=== PATIENT | female | born 1990 | race Caucasian/White ===

== ENCOUNTER 2018-08-04 13:32 | Inpatient (IN) | payer OTHER ==
[~2018-08-04] VITALS: Ht 175.3 cm; Wt 117.5 kg
--- NOTE | ~2018-08-04 | OR ---
[address] [address] [place] DATE OF OPERATION: 08/12/2018 SURGEON: Jorge Benites DO PREOPERATIVE DIAGNOSES: 1. Term . 2. History of prior . 3. Obesity. 4. Rh negative status post RhoGAM. POSTOPERATIVE DIAGNOSES: 1. Term . 2. History of prior . 3. Obesity. 4. Rh negative status post RhoGAM. PROCEDURE PERFORMED: Repeat low transverse delivery. ASSISTANTS: Darren York MD ANESTHESIA: Spinal. ESTIMATED BLOOD LOSS: 500 mL. COMPLICATIONS: None. FINDINGS: Viable male born in the SHAUNA position with no nuchal cord noted. Normal uterus, tubes, and ovaries. No intraabdominal or pelvic adhesions. Hemostasis at the end of the procedure. INDICATIONS: Ms. Obregon is a pleasant 28-year-old G2, P1, white female at 39 and 4 weeks gestation, who presented to Labor and Delivery for scheduled repeat low transverse delivery. The is complicated by history of prior , Rh negative, and obesity. PATIENT NAME: DEON OBREGON OPERATIVE REPORT DATE OF : 86 REPORT #: [id number] PHYSICIAN: JORGE BENITES DO PCP: JORGE BENITES DO REPORT IS CONFIDENTIAL AND NOT TO BE RELEASED WITHOUT AUTHORIZATION [address] [address] [place] She was scheduled for repeat low transverse delivery. Risks, benefits, and alternatives were discussed in detail with the patient. She does have a Keflex allergy and Pharmacy recommended clindamycin 900 mg and aztreonam 2 g IV for preoperative antibiotics. TECHNIQUE: The patient was taken to the operating room. A time-out was performed to confirm correct patient and correct procedure. Spinal anesthesia was adequately established. The patient was then prepped and draped in the supine position with a bump under her right hip. ICPs were on running and a Knox catheter was inserted. Clindamycin and aztreonam were given per [facility] protocol and no preoperative heparin was indicated. Once spinal anesthetic was tested and found to be adequate, a Pfannenstiel skin incision was made through the prior scar and carried down to the fascia. The fascia was nicked in the midline with a surgical scalpel and extended bilaterally using Churchill scissors. A small amount of oozing was noted from the fascial edge on the left side and this was made hemostatic with Bovie electrocautery. The fascia was grasped with Dora's, elevated and the underlying rectus dissected off bluntly and sharply. The peritoneum was entered sharply and peritoneal incision was extended cephalad caudad using blunt and sharp dissection. The lower uterine segment was identified and appears normal. No intraabdominal or pelvic adhesions noted. Normal tubes and ovaries were noted later in the procedure. An Bolivar retractor was placed and the lower uterine segment incised using a surgical scalpel in a low-transverse method. Some brisk bleeding was noted and the lower segment edges were grasped with Allis. It is elevated and hysterotomy continued with this scalpel. Once the myometrium was transected, the amnion was bulging and clear fluid was noted. This was ruptured using pickups and clear fluid again noted. Surgeon's hand was placed into the uterine cavity. The head elevated in the abdomen, delivered with the assistance of fundal pressure. No nuchal cord was identified and the delivered easily without difficulty. The was vigorous and cried upon delivery. The cord was doubly clamped and cut. The handed to the waiting pediatric team. Cord blood and portion of the cord were obtained per protocol. The placenta was then expressed intact with a centrally inserted three-vessel cord. Scant bleeding was noted and Pitocin was given to enhance uterine involution. The uterus was cleared of any remaining products of conception or clot and hysterotomy was then repaired using 0 Vicryl in a running locked manner. A 2nd vertical imbricating suture of 0 Vicryl was then placed with good imbrication noted. A small amount of oozing was noted and this was made hemostatic with one [id number]-br-whijq of 0 Vicryl. The Bolivar retractor was removed and the pelvis irrigated and found to be hemostatic. A cell sheet was applied to the lower uterine segment and the peritoneum was then reapproximated using a 2-0 Vicryl in a running nonlocked stitch after examining normal adnexal structures. The rectus was then reapproximated using 0 Vicryl in two interrupted sutures of 0 Vicryl and rectus was then examined and found to be hemostatic. A cell powder was applied to the rectus sheath. Fascia was then reapproximated using 0 PATIENT NAME: DEON OBREGON OPERATIVE REPORT DATE OF : 86 REPORT #: [id number] PHYSICIAN: JORGE BENITES DO PCP: JORGE BENITES DO REPORT IS CONFIDENTIAL AND NOT TO BE RELEASED WITHOUT AUTHORIZATION [address] [address] [place] Vicryl in a running nonlocked manner. The subcu was reapproximated using 2-0 Vicryl in a running nonlocked manner and skin was reapproximated using surgical jenaro after ensuring subcu was hemostatic and was irrigated with fluid. The uterus was then Crede'd for scant amount of blood and the patient was taken to PACU in good and stable condition. Sponge, needle, instrument count was correct x2 at the end of the procedure. Dr. York, present and participated in all portions of the procedure. Jorge Benites DO JDW/MODL /[id number] Copies: ~ PATIENT NAME: DEON OBREGON OPERATIVE REPORT DATE OF : 86 REPORT #: [id number] PHYSICIAN: JORGE BENITES DO PCP: JORGE BENITES DO REPORT IS CONFIDENTIAL AND NOT TO BE RELEASED WITHOUT AUTHORIZATION
[~2018-08-04 13:32] MED LIST: ALLERGY RELIE15.8 ML NAS; IBUPROFEN800 MG PO; PERCOCET 5-3251 EACH PO; PROMETHAZINE HC25 M1 PO
--- NOTE | 2018-08-12 08:43 | NUR ---
08/12/18 0843 Hiwot Méndez 0820 PT ARRIVED TO PACU ON RA, RESP EVEN AND UNLABORED. PT AWAKE AND TALKING. PT DENIES PAIN AND NAUSEA. SPINAL LEVEL T-6, PT DENIES SOB AND DIZZNESS.
--- NOTE | 2018-08-13 08:01 | PR ---
[facility] [address] [facility] [place], [place] [address] Signed PP Progress Notes Datetime Report Generated by CPN: 08/13/2018 08:01 SUBJECTIVE: [id number] Pain: Within normal limits Nausea/Vomiting: Denies Flatus: Yes Vital Signs: [id number] Vital Signs: Reviewed; Within Normal Limits EXAM: [id number] Cardiovascular: Normal Abdomen/Uterus: Normal Lochia: Normal Vulva/Perineum: Not Done Breasts: Not Done CVA Tenderness: Normal Extremities: Normal Incision: Normal Progress: Normal Exam Comments: Fundus firm U-2 nontender. Incision healing well. IMPRESSION/PLAN/PROCEDURES: [id number] Impression: Normal progression Plan: Continue present management Progress Notes: Pt seen and examined. Doing well. Ambulating and tolerating full diet. Knox cath in place. Pain and lochia minimal. well. No fevers/chills/lightheadedness or dizziness. Some decreased urine output yesterday evening, but improved. No tachycardia. Hgb 8.8 Baby Rh negative. Signing Physician: Jorge Benites DO Copies: ~ *Electronically Signed* 08/13/18 0801 JORGE BENITES DO PATIENT NAME: DEON ESCOTO PROGRESS NOTE DATE OF : 86 PHYSICIAN: JORGE BENITES DO RPT #: [id number] REPORT IS CONFIDENTIAL AND NOT TO BE RELEASED WITHOUT AUTHORIZATION
--- NOTE | 2018-08-14 10:05 | PR ---
[facility] [address] [facility] [place] [address] Signed PP Progress Notes Datetime Report Generated by CPN: 08/14/2018 10:05 SUBJECTIVE: [id number] Pain: Within normal limits Nausea/Vomiting: Denies Flatus: Yes Vital Signs: [id number] Vital Signs: Reviewed; Within Normal Limits EXAM: [id number] Cardiovascular: Normal Respiratory: Normal Abdomen/Uterus: Normal Lochia: Normal Vulva/Perineum: Not Done Breasts: Not Done CVA Tenderness: Normal Extremities: Normal Incision: Normal Progress: Normal Exam Comments: Fundus firm U-2 nontender. Incision healing well IMPRESSION/PLAN/PROCEDURES: [id number] Impression: Normal progression Plan: Discharge Progress Notes: Pt seen and examined. Doing well. Ambulating voiding and tolerating full diet. Pain and lochia minimal. /pumping with good milk production. No fevers/chills/lightheadedness or dizziness. Good urine output. No tachycardia. Hgb 8.8 Baby Rh negative. Signing Physician: Jorge Benites DO Copies: ~ *Electronically Signed* 08/14/18 1005 JORGE BENITES DO PATIENT NAME: DEON ESCOTO PROGRESS NOTE DATE OF : 86 PHYSICIAN: JORGE BENITES DO RPT #: [id number] REPORT IS CONFIDENTIAL AND NOT TO BE RELEASED WITHOUT AUTHORIZATION
== END 2018-08-14 10:35 | disposition home or self-care (01) | DRG 788 ==
LOC: FBC 08-12 04:38
PROVIDERS: ADMIT Obstetrics & Gynecology
PROC: 10D00Z1 Extraction of Products of Conception, Low, Open Approach (ICD-10-PCS; principal; 2018-08-12 06:45)
DX: O34.211 Maternal care for low transverse scar from previous cesarean delivery (principal); Z37.0 Single live birth; O75.82 Onset (spontaneous) of labor after 37 completed weeks of gestation but before 39 completed weeks gestation, with delivery by (planned) cesarean section; Z3A.39 39 weeks gestation of pregnancy; O99.214 Obesity complicating childbirth; Z67.11 Type A blood, Rh negative
CPT/HCPCS: 01961; 36415; 85027; C1763; J1100; J1885; J2274; J2300; J2370; J2405; J2590; J3010; J3490; J7060; J7120

== ENCOUNTER 2019-08-26 22:24 | Emergency (ER) | payer OTHER ==
[~2019-08-26] VITALS: Ht 175.3 cm; Wt 97.1 kg
--- OUTSIDE RECORDS SUMMARY | ~2019-08-26 | XMS | Encounter Summary ---
Demographics + + + | Address | [address] | | | [place] [address] | + + + | Home Phone | | + + + | Preferred Language | Unknown | + + + | Marital Status | | + + + | Pentecostalism Affiliation | Unknown | + + + | Race | Unknown | + + + | Ethnic Group | Unknown | + + + Author + + + | Author | [facility] | | | and [place] | + + + | Organization | [facility] | | | and [place] | [...] Team Providers + +------+ + | Care Oil Gauger Name | Role | Phone | + +------+ + | Steff Hightower MD | PCP | | + +------+ + Reason for Visit + + + | Reason | Comments | + + + | Establish Care | | + + + Encounter Details +--------+---------+ + + + | Date | Type | Department | Care Team | Description | +--------+---------+ + + + | 09/12/ | Office | [facility] | Steff Hightower MD | Encounter to | | 2019 | Visit | [facility] | [address] | establish care | | | | [address] | [place] | (Primary Dx); Mild | | | | [place] | [address] | intermittent asthma | | | | [address] | | without | | | | [phone] | | complication; | | | | | | Recurrent acute | | | | | | serous otitis media | | | | | | of both ears; | | | | | | Seasonal allergic | | | | | | rhinitis due to | | | | | | pollen | +--------+---------+ + + + Social History + +-------+ [...] + + documented as of this encounter Last Filed Vital Signs + + + + + | Vital Sign | Reading | Time Taken | Comments | + + + + + | Blood Pressure | 110/78 | 06/23/2019 9:36 AM | | | | | PDT | | + + + + + | Pulse | 91 | 06/23/2019 9:36 AM | | | | | PDT | | + + + + + | Temperature | 37.4 C (99.3 F) | 06/23/2019 9:36 AM | | | | | PDT | | + + + + + | Respiratory Rate | 16 | 06/23/2019 9:36 AM | | | | | PDT | | + + + + + | Oxygen Saturation | 97% | 06/23/2019 9:36 AM | | | | | PDT | | + + + + + | Inhaled Oxygen | - | - | | | Concentration | | | | + + + + + | Weight | 102 kg (224 lb 13.9 | 06/23/2019 9:36 AM | | | | oz) | PDT | | + + + + + | Height | 180.3 cm (5' 11") | 06/23/2019 9:36 AM | | | | | PDT | | + + + + + | Body Mass Index | 31.36 | 06/23/2019 9:36 AM | | | | | PDT | | + + + + + documented in this encounter Patient Instructions Patient Instructions Mee Blanc, WASHING MACHINE INSTALLER - 06/23/2019 9:15 AM PDTFormatting of this no te might be different from the original. Return in about 1 year (around 06/23/2020), or if symptoms worsen or fail to improve, for An nual Exam.If you have any questions, please call us [phone]. Appointment reminders by text: Do you have an upcoming appointment? Receive a test reminder! Text the word [employer] to [phone] to opt. in and ask our front sight attacher for more information laron bowman your visit today. *Standard message and data rates may apply Prescription Refill Notice: All prescription refill requests should be made through your pharmacy. Please allow 24-48 business hours to process refill requests. No early refills will be given for controlled substances. Cancellation/Re-Scheduling/Late Arrivals: Please arrive 15 minutes prior to your scheduled appointment time. Arrivals beyond 10-15 mi nutes late will be considered a "no-show" and you may be asked to reschedule. Please notify this office 24 hours prior to cancellation or re-scheduling of your appointme nt. Allergic Rhinitis Allergic rhinitis is an allergic reaction that affects the nose, and often the eyes. It s often known asnasal allergies. Nasal allergies are often due to things in the environment that are breathed in. Depending what you are sensitive to, nasal allergies may occur only d uring certain seasons. Or they may occur year round. Common indoor allergens include house d ust mites, mold, cockroaches, and pet dander. Outdoor allergens include pollen from trees, g rasses, and weeds. Symptoms include a drippy, stuffy, and itchy nose. They also include sneezing and red and i tchy eyes. You may feel tired more often. Severe allergies may also affect your breathing an d trigger a condition called asthma. Tests can be done to see what allergens are affecting you. You may be referred to an allerg y specialist for testing and further evaluation. Home care Your healthcare provider may prescribe medicines to help relieve allergy symptoms. These ma y include oral medicines, nasal sprays, or eye drops. Ask your provider for advice on how to avoid substances that you are allergic to.Below ar e a few tips for each type of allergen. Pet dander: Do not have pets with fur and feathers. If you can't avoid having a pet, keep it out of your bedroom and off upholstered furnitu re. Pollen: When pollen counts are high, keep windows of your car and home closed. If possible, use an air conditioner instead. Wear a filter mask when mowing or doing yard work. House dust mites: Wash bedding every week in warm water and detergent and dry on a hot setting. Cover the mattress, box spring, and pillows with allergy covers. If possible, sleep in a room with no carpet, curtains, or upholstered furniture. Cockroaches: Store food in sealed containers. Remove garbage from the home promptly. Fix water leaks Mold: Keep humidity low by using a dehumidifier or air conditioner. Keep the dehumidifier and air conditioner clean and free of mold. Clean moldy areas with bleach and water. In general: Vacuum once or twice a week. If possible, use a vacuum with a high-efficiency particulat e air (HEPA) filter. Do not smoke. Avoid cigarette smoke. Cigarette smoke is an irritant that can make sympto ms worse. Follow-up care Follow up as advised by the healthcare provider or our staff. If you were referred to an al lergy specialist, make this appointment promptly. When to seek medical advice Call your healthcare provider right away if the following occur: Coughing or wheezing Fever of 100.4F (38C) or higher, or as directed by your healthcare provider Raised red bumps (hives) Continuing symptoms, new symptoms, or worsening symptoms Call 911if you have: Trouble breathing Severe swelling of the face or severe itching of the eyes or mouth Date Last Reviewed: 12/10/201619996586-8299 [employer]. [address] [place] [address]. All righ ts reserved. This information is not intended as a substitute for professional medical care. Always follow your healthcare professional's instructions. Asthma Trigger Checklist Allergens, irritants, and other things may trigger your asthma. Check the box next to each of your triggers. After each trigger is a list of ways to avoid it. Dust mites. Dust mites live in mattresses, bedding, carpets, curtains, and indoor dust. To kill dust mites, wash bedding in hot water (130F) each week. Cover mattress and pillows with special nfpk-mujk-zxtkuuldtf. Don t use upholstered furniturelike sofas or chairsin the bedroom. Use allergy-proof filters for air conditioners and furnaces. Replace or clean them as in structed. If you can, replace carpeting with wood or tile tres, especially in the bedroom. Animals. Animals with fur or feathers shed dander (allergens). It s best to choose a pet that doesn t have fur or feathers, such as a fish or a rep tile. If you have pets, keep them off of your bed and out of your bedroom. Wash your hands and clothes after handling pets. Mold. Mold grows in damp places, such as bathrooms, basements, and closets. Ask someone to clean damp areas in your home every week. Or try wearing a face mask whil e you clean. Run an exhaust fan while bathing. Or leave a window open in the bathroom. Repair water leaks in or around your home. Have someone else cut grass or rake leaves, if possible. Don t use vaporizersorhumidifiers. They encourage mold growth. Pollen. Pollen from trees, grasses, and weeds is a common allergen. (Flower pollens are generally not a problem). Try to learn what types of pollen affect you most. Pollen levels vary depending on the p lant, the season, and the time of day. If possible, use air conditioning instead of opening the windows in your home or car. Have someone else do yard work, if possible. Cockroaches. Roaches are found in many homes and produce allergens. Keep your kitchen clean and dry. A leaky faucet or drain can attract roaches. Remove garbage from your home daily. Store food in tightly sealed containers. Wash dishes as soonas they are used. Use bait stations or traps to control roaches. Avoid using chemical sprays. Smoke. Smoke may be from cigarettes, cigars, pipes, incense or candles, barbecues or gri lls, and fireplaces. Don t smoke. And don t let people smoke in your home or car. When you travel, ask for nonsmoking rental cars and hotel rooms. Avoid fireplaces and wood stoves. If you can t, sit away from them. Make sure the smok e is directed outside. Don t burn incenseor use candles. Move away from smoky outdoor cooking grills. Smog. Smog is from car exhaust and other pollution. Read or listen to local air-quality reports. These let you know when air quality is poor . Stay indoors as much as you can on smoggy days. If possible, use air conditioning instea d of opening the windows. In your car, set air conditioning to recirculate air, so less pollution gets in. Strong odors. These include air fresheners, deodorizers, and cleaning products; perfume, deodorant, and other beauty products; incense and candles; and insect sprays and other spra ys. Use scent-free products like deodorantorbodylotion. Avoid usingcleaning products withbleach and ammonia.Make your own cleaning solutio nwith white vinegar, baking soda,or mild dish soap. Use exhaust fans while cooking.Or open a window, if possible. Avoid perfumes, air fresheners, potpourri, and other scented products. Other irritants. These include dust, aerosol sprays, and powders. Wear a face mask while doing tasks like sanding, dusting, sweeping, and yard work.Open doors and windows if working indoors. Use pump spray bottles instead of aerosols. Pour liquid audiovisual technician onto a rag or cloth instead of spraying them. Weather. Weatherconditionscan triggersymptomsormake them worse. Watch for very high or low temperatures, very humid conditions, or a lot of wind, as the se conditions can make symptoms worse. Limit outdoor activity during the type of weather that affects you. Weara scarf over your mouth and nose in cold weather. Colds, flu, and sinus infections. Upper respiratory infections can trigger asthma. Wash your hands often with soap and warm water orusea hand administrative specialist containing alco hol. Get a yearly flu shot.And ask if you should get a pneumonia vaccine. Take care of your general health. Get plenty of sleep. And eat a variety of healthy food s. Food additives. Food additives can trigger asthma flare-ups in some people. Check food labels for sulfites or other similar ingredients. These are often found in fo ods such as wine, beer, and dried fruits. Avoid foods that contain these additives. Medicine. Aspirin, NSAIDS like ibuprofen and naproxen,and heart medicines like beta-bl ockers may be triggers. Tell your health care provider if youthink certain medicines trigger symptoms. Be sure to read the labels on zyyn-myb-plshxzh medicines.They may have ingredients hay t cause symptoms for you. , Emotions. Laughing, crying, or feeling excited are triggers for some people. To help you stay calm: Try breathing in slowly through your nose for a count of 2 second s. Close your lips and breathe out for 4 seconds. Repeat. Try to focus on a soothing image in your mind. This will help relax you and calm your br eathing. Remember to take your daily controller medicines. When you re upset or under stress, i t s easy to forget. Exercise. For some people, exercise can triggersymptoms.Don t letthiskeep you from being active. If you have not been exercising regularly, start slow and work up gradually. Take all of your medicines as prescribed. If you use quick-reliefmedicine, make sure you have itwith you when you exercise. Stopif youhave any symptoms.Make sure you talk with your provider about these symp toms. Date Last Reviewed: 10/12/201619994355-[address] [employer] [place] [id number]. All righ ts reserved. This information is not intended as a substitute for professional medical care. Always follow your healthcare professional's instructions. Controlling Asthma Triggers: Animals Keep pets off beds and upholstered furniture. Having allergies to animals can trigger asthma flare-ups. Yourhealthcare provider may grant t you for allergies to several types of animals, both pets and pests. Theallergies areca used byan animal s dry skin flakes (dander), feathers, droppings, urine, and saliva. If you are allergic to pets,you can dosome things to lessen your symptoms. Keeping your home clean Dust often with a damp cloth to lessen pet dander. Keep your pets off of your bed and out of your bedroom. You spend a big part of each day there sleeping. But even if you keep your pet out of the bedroom, pet allergen will be ther e. When you sit on the couch in the living room and then go into the bedroom, youbring the allergen with you. Keep your pets off of upholstered furniture, like sofas and chairs, and out of rooms wit h carpeting. Use a special bag for your vacuum or use a vacuum designed to lessen pet dander and hair on carpeting. Think about buying a home air grain cleaner and transfer operator with a HEPA (high-efficiency particulate air) filt er. They help to remove allergens in the air. Keep your kitchen clean and free of food crumbs. Don't leave food crumbs elsewhere in th e house. These can attract mice and other pests. These pests can trigger asthma. Away from home You may have to stay out of homes with pets. Even if the pets are outdoors during a visi t, the dander remains in the house. When spending the night somewhere, ask to sleep in a room where pets aren't allowed. Choosing a pet If you are considering a new pet, this is what you should know: For people with allergies to dogs and cats, it is not the length of the fur or coat or t he amount of shedding that matters. All dogs and cats have dander. No dog or cat is complete ly allergen-free. Fish and reptiles don't cause allergies. Date Last Reviewed: 07/12/201619998814-8665 [employer]. [address] [place] [address], [place] [address]. All righ ts reserved. This information is not intended as a substitute for professional medical care. Always follow your healthcare professional's instructions. documented in this encounter Progress Notes Steff Hightower MD - 06/23/2019 9:15 AM PDT Subjective: Patient ID: Mariella Obregon is a 29 y.o. female. Chief Complaint Patient presents with Establish Care HPI Patient is a 29 y.o. Caucasion female. She is a previous patient of Olivia diaz nd has decided to change physicians due to provider no longer practicing. She is here with her Fernando Waddell (4 y.o) and 10 m.o. Baby boy. 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 She reports about 3 weeks ago she received a couch from her in-law's. She had forgot that h er in-law's have cats and she has an allergy to cats. So she did get rid of the couch but sh valery is still having swelling in her lymph nodes and she would like a referral to see someone. C/O pressure in her ears, swollen throat "getting shots" she has already seen 3 or 4 physic ians for these issues, received Cortisporin orthotic for "swimmer's ear's ", she is been see n in [facility] in [place] for sinus infection since and had doxycycline and currently on a Medrol Dosepak after a 3 days of prednisone, swelling lymph nodes throat and ears are swol racheal and feel achy and pressure, had a normal CAT scan of the sinuses, negative strep negativ e mono and negative sinuses on the CAT scan. Little frustrated that she can get rid of her pressure, earache and swelling in her throat and lymph nodes. Has a history of asthma since childhood does not smoke and has significant allergies. Symptoms have worsened and became strong about a month ago. Her last physical exam was 09/2018. Last mammogram - Has never had one before. Last Pap smear was 09/2018 and she never had history of abnormal results. Patient's last menstrual period was 06/09/2019 (exact date). and are regular. No obstetric history on file.. Birthcontrol: yes Type pill Hysterectomy: no Colonoscopy - has not had one done. Mother had colon cancer diagnosed at age 53. Her last labs were 09/2018. She is currently being treated for She is on a regular diet. She exercises by running after her children. Today her main concern is that she would like to establish care and as listed above under H PI. She is non-fasting today. PHQ9 SCORE Office Visit from 06/23/2019 in [facility] PHQ-9 Total Score (Patient Health Questionnaire) 4 Past Medical History: Diagnosis Date Acute non-recurrent maxillary sinusitis Asthma PCOS (polycystic ovarian syndrome) Seasonal allergic rhinitis due to other allergic trigger Past Surgical History: Procedure Laterality Date CEASAREAN SECTION, MULTIPLES has had 2 done DENTAL SURGERY Molars removed REFRACTIVE SURGERY Bilateral 2010 SKIN EXCISION 4 different procedures to remove birthmark History reviewed. No pertinent family history. Social History Socioeconomic History Marital status: Spouse name: Not on file Number of children: Not on file Years of education: Not on file Highest education level: Not on file Tobacco Use Smoking status: Never Smoker Smokeless tobacco: Never Used Substance and Sexual Activity Alcohol use: Yes Frequency: 2-4 times a month Drinks per session: 1 or 2 Binge frequency: Weekly Drug use: Never Allergies Allergen Reactions Keflex (Cephalexin) Anaphylaxis Intolerance No active intolerances/contraindications Current Outpatient Medications Medication Sig Dispense Refill cetirizine-psuedoePHEDrine (ZYRTEC-D) 5-120 MG per tablet Take 1 tablet by mouth Daily. 30 tablet 0 desogestrel-ethinyl estradiol (AZURETTE) 0.15-0.02/0.01 MG (01/03) per tablet Take 1 tab let by mouth Daily. diphenhydrAMINE (BENADRYL) 25 mg tablet Take 25 mg by mouth every 6 hours as needed for Itching. fluticasone (FLONASE) 50 mcg/nasal spray 1 spray by Nasal route Daily. methylPREDNISolone (MEDROL) 4 mg tablet Take 4 mg by mouth Daily. montelukast (SINGULAIR) 10 mg tablet Take 1 tablet by mouth Daily. 90 tablet 3 oylybigv-vzmohwmmm-xchhhjjoijryc (MAXITROL) 3.5-88152-4.1 ophthalmic ointment 4 times d aily. No current facility-administered medications for this visit. Review of Systems Constitutional: Negative for fever and malaise/fatigue. HENT: Positive for congestion. Negative for ear discharge, ear pain, sinus pain, sore throa t and tinnitus. Swelling of the lymph nodes in the neck Eyes: Negative for blurred vision and pain. Respiratory: Negative for cough and shortness of breath. Cardiovascular: Negative for chest pain, palpitations and leg swelling. Gastrointestinal: Negative for abdominal pain, constipation, diarrhea, heartburn, nausea an d vomiting. Genitourinary: Negative for dysuria. Musculoskeletal: Negative for back pain, joint pain and myalgias. Skin: Negative for rash. Neurological: Negative for dizziness, tingling, weakness and headaches. Psychiatric/Behavioral: Negative for depression. The patient is not nervous/anxious and palafox s not have insomnia. Objective: BP 110/78 | Pulse 91 | Temp 37.4 C (99.3 F) (Temporal) | Resp 16 | Ht 1.803 m (5' 1 1") | Wt 102 kg (224 lb 13.9 oz) | LMP 06/09/2019 (Exact Date) | SpO2 97% | Breastfeedin g? No | BMI 31.36 kg/m Physical Exam General Appearance: Alert, cooperative, no distress, appears stated age Head: Normocephalic, without obvious abnormality, atraumatic Eyes: PERRL, conjunctiva/corneas clear, EOM's intact EARS: TM's are bulging, with decreased light reflex and not erythematous NOSE: congested, stuffy THROAT: erythematous, no exudates, Tonsils not enlarged SINUSES: WNL Neck: Supple, symmetrical, no adenopathy Lungs: No accessory muscle use, breath sounds are clear to auscultation bilaterally, no w heezes, crackles or rhonchi Chest Wall: No tenderness or deformity Heart: Regular rate and rhythm, S1, S2 normal, no murmur, rub or gallop Abdomen: Soft, non-tender Extremities: Extremities normal, atraumatic, no cyanosis, clubbing, or edema Pulses: Radial pulses 2+ and symmetric Skin: Warm and dry Lymph nodes: Cervical and supraclavicular nodes normal Neurologic: Gait normal Assessment/Plan: 1. Encounter to establish care (Primary) Overview: Health Maintenance -Colonoscopy: Not at screening age. -Mammogram: Not at screening age. -Dexa Scan: Not at screening age. -Pap Smear: done 09/2018 in [place]. Will request record. Assessment & Plan: Healthy habits discussed, including regular breast exams, proper calcium intake, exercise. Reviewed need for age appropriate screening examinations and vaccines. Ordered if appropria te. Follow-up one year for next exam. 2. Mild intermittent asthma without complication - montelukast (SINGULAIR) 10 mg tablet; Take 1 tablet by mouth Daily. Dispense: 90 tab let; Refill: 3 3. Recurrent acute serous otitis media of both ears Assessment & Plan: She can stop taking the Benadryl, and zyrtec and continue to use the Flonase and start the Zyrtec-D as needed and start Singular nightly. Advised her to continue this for a couple wee ks and if this does not improve then we can consider an allergy consultation. Discussed eustachian tube dysfunction and treatment may take a few weeks up to a few months . to avoid dust mites, wash sheets once a week and expose them to the sun. Avoid exposure to dust, vacuum the carpets at least twice a week and dust furniture with a damp cloth. Avoid pet, dust mold, pollen and grass exposures. Orders: - montelukast (SINGULAIR) 10 mg tablet; Take 1 tablet by mouth Daily. Dispense: 90 tab let; Refill: 3 - cetirizine-psuedoePHEDrine (ZYRTEC-D) 5-120 MG per tablet; Take 1 tablet by mouth Gertrudis ly. Dispense: 30 tablet; Refill: 0 4. Seasonal allergic rhinitis due to pollen The patient was satisfied with the care received and voiced understanding of the issues dis cussed and the plan. Return in about 1 year (around 06/23/2020), or if symptoms worsen or fail to improve, for An nual Exam. Electronically signed by Steff Hightower MD Portions of this report were transcribed using [employer] voice recognition soft miranda. Although effort was made in correcting the errors; grammatical and sound alike errors may still be present. documented in this enc ounter Plan of Treatment Not on filedocumented as of this encounter Procedures + +--------+ + + + | Procedure Name | Priori | Date/Time | Associated Diagnosis | Comments | | | ty | | | | + +--------+ + + + | LABS - EXTERNAL SCAN | | 01/12/2018 | | Results for this | | | | 12:00 AM | | procedure are in the | | | | PDT | | results section. | + +--------+ + + + documented in this encounter Results LABS - EXTERNAL SCAN (01/12/2018 12:00 AM PDT) + + + | Narrative | Performed At | + + + | Ordered by an | | | unspecified provider. | | + + + documented in this encounter Visit Diagnoses + + | Diagnosis | + + | Encounter to establish care - Primary Reserved for inherently not codable concepts | | WITHOUT codable children | + + | Mild intermittent asthma without complication Unspecified asthma | + + | Recurrent acute serous otitis media of both ears Acute serous otitis media | + + | Seasonal allergic rhinitis due to pollen | + + documented in this encounter
--- OUTSIDE RECORDS SUMMARY | ~2019-08-26 | XMS | Encounter Summary ---
Demographics + + + | Address | [address] | | | [place] [address] | + + + | Home Phone | | + + + | Preferred Language | Unknown | + + + | Marital Status | | + + + | Evangelical Affiliation | Unknown | + + + | Race | Unknown | + + + | Ethnic Group | Unknown | + + + Author + + + | Author | [facility] | | | and [place] | + + + | Organization | [facility] | | | and [place] | [...] Team Providers + +------+ + | Care Clinical Documentation Specialist Name | Role | Phone | + [...] Question | | 2019 | | [facility] [place] | [address] | | | | | [address] | [place] | | | | | [place] | [address] | | | | | [address] | | | | | | [phone] | | | +--------+ + + + [...]
--- OUTSIDE RECORDS SUMMARY | ~2019-08-26 | XMS | Encounter Summary ---
Demographics + + + | Address | [address] | | | [place] [address] | + + + | Home Phone | | + + + | Preferred Language | Unknown | + + + | Marital Status | | + + + | Methodist Affiliation | Unknown | + + + | Race | Unknown | + + + | Ethnic Group | Unknown | + + + Author + + + | Author | [facility] | | | and [place] | + + + | Organization | [facility] | | | and [place] [...] Team Providers + +------+ + | Care Economic Forecaster Name | Role | Phone | + [...] | | | | [place] | [place] [address] | | | | | [address] | [phone] | | | | | [phone] | | | +--------+ + + + [...]
--- OUTSIDE RECORDS SUMMARY | ~2019-08-26 | XMS | Encounter Summary ---
Demographics + + + | Address | [address] | | | [place] [address] | + + + | Home Phone | | + + + | Preferred Language | Unknown | + + + | Marital Status | | + + + | Mandaen Affiliation | Unknown | + + + | Race | Unknown | + + + | Ethnic Group | Unknown | + + + Author + + + | Author | [facility] | | | and [place] | + + + | Organization | [facility] | | | and [place] [...] Team Providers + +------+ + | Care Gasoline Finisher Name | Role | Phone | + +------+ + | Steff Higthower MD | PCP | | + +------+ + Reason for Visit + + + | Reason | Comments | + + + | Mass | at mid sternum that she noticed 1 year. it swells off and on but | | | more in the last month. | + + + | Depression | after second child, 1 year post | + + + | Anxiety | | + + + Encounter Details +--------+---------+ + + + | Date | Type | Department | Care Team | Description | +--------+---------+ + + + | 08/02/ | Office | [facility] | Adilia Cash, | Generalized anxiety | | 2019 | Visit | [facility] [place] | TEXTILE [employer]ISHER [address] | disorder (Primary | | | | [address] | [place] | Dx); Chest mass; | | | | [place] | [address] | Leukocytosis, | | | | [address] | | unspecified type | | | | [phone] | | | +--------+---------+ + + + [...] + + + | Blood Pressure | 126/76 | 08/02/2019 9:22 AM | | | | | PDT | | + + + + + | Pulse | 90 | 08/02/2019 9:22 AM | | | | | PDT | | + + + + + | Temperature | 37.3 C (99.1 F) | 08/02/2019 9:22 AM | | | | | PDT | | + + + + + | Respiratory Rate | 20 | 08/02/2019 9:22 AM | | | | | PDT | | + + + + + | Oxygen Saturation | 97% | 08/02/2019 9:22 AM | | | | | PDT | | + + + + + | Inhaled Oxygen | - | - | | | Concentration | | | | + + + + + | Weight | 99 kg (218 lb 4.1 | 08/02/2019 9:22 AM | | | | oz) | PDT | | + + + + + | Height | - | - | | + + + + + | Body Mass Index | 30.44 | 06/23/2019 9:36 AM | | | | | PDT | | + + + + + documented in this encounter Patient Instructions Patient Instructions Adilia Cash ARNP - 08/02/2019 9:45 AM PDTCheck in for lab work. I 'll be in touch regarding lab work. You will be contacted regarding imaging. Aim for 30 minutes of brisk activity daily. - Take medications as directed and call or return if you experience side effects - Consider counseling. - return if symptoms worsen or if you are having thoughts of self harm - Use your social support network to help you as needed - Work into your schedule activities that are stress relieving and improve your emotional w ell being. Phone number for Crisis HelpLine ([phone]) or go to ED for evaluation in the event you become a harm to yourself or anyone else. Crisis text line also available at [phone] Chest Wall Pain: Costochondritis The chest pain that you have had today is caused by costochondritis. This condition is caus ed by an inflammation of the cartilage joining your ribs to your breastbone. It is not cause d by heart or lung problems. Your healthcare team has made sure that the chest pain you feel is not from a life threatening cause of chest pain such as heart attack, collapsed lung, bl ood clot in the lung, tear in the aorta, or esophageal rupture. The inflammation may have be en brought on by a blow to the chest, lifting heavy objects, intense exercise, or an illness that made you cough and sneeze a lot. Itoften occursduring times of emotional stress. It can be painful, but it is not dangerous. It usually goes away in 1 to 2 weeks. But it may happen again. Rarely, a more serious condition may cause symptoms similar to costochondriti s. That s why it s important to watch for the warning signs listed below. Home care Follow these guidelines when caring for yourself at home: If you feel that emotional stress is a cause of your condition, try to figure out the so urces of that stress. It may not be obvious. Learn ways to deal with the stress in your life . This can include regular exercise, muscle relaxation, meditation, or simply taking time ou t for yourself. You may use acetaminophen, ibuprofen, or naproxen to control pain, unless another pain m edicine was prescribed. If you have liver or kidney disease or ever had a stomach ulcer, soheila k with your healthcare provider before using these medicines. You can also help ease pain by using a hot, wet compress or heating pad. Use this with o r without a medicated skin cream that helps relieves pain. Do stretching exercise as advised by your provider. Take any prescribed medicines as directed. Follow-up care Follow up with your healthcare provider, or as advised, if you do not start to get better i n the next 2 days. When to seek medical advice Call your healthcare provider right away if any of these occur: A change in the type of pain. Call if it feels different, becomes more serious, lasts lo nger, or spreads into your shoulder, arm, neck, jaw, or back. Shortness of breath or pain gets worse when you breathe Weakness, dizziness, or fainting Cough with dark-colored sputum (phlegm) or blood Abdominal pain Dark red or black stools Fever of 100.4F (38C) or higher, or as directed by your healthcare provider Date Last Reviewed: 09/11/201619993397-3451 [employer]. [address] [place] [address]. All righ ts reserved. This information is not intended as a substitute for professional medical care. Always follow your healthcare professional's instructions. documented in this encounter Progress Notes Adilia Cash ARNP - 08/02/2019 9:45 AM PDTFormatting of this note might be different fr om the original. Mariella Obregon is a 29 y.o. female and patient of Steff Hightower MD Chief Complaint: Mass (at mid sternum that she noticed 1 year. it swells off and on but mor e in the last month. ); Depression (after second child, 1 year post ); and Anxiety HPI Reports mass of chest Swells off and on over the last year. Thinks it's a lymphnode and con cerned she may have cancer, feels it is worse when her son is in school. It is tender if one of her sons bumps it. Seen at the ED for this and was told it was in her head. She has seen chiropractic for it and it's been helpful. Called Dr. Hightower and she told her to come it re mained tender. No fevers chills, night sweat or fatigue. No dizziness, weakness or fainting. Anxiety ongoing off and on, worsening. Used to be able to cope by practicing relaxation and taking [place]'s Wort. Dc'd during . Mood is worsening. On migue days she get out and goes for walks with the boys. works [employer], so sle eps during the day. Sleeping well. Has not tried counseling, willing to consider, moving to [place] in March and wants to start then. Gets short breaks from the boys. No SI/HI. Has not been on medication for mood and would like to try. First day of LMP last week. I have reviewed notes and lab from ED visit where she was seen for allergy symptoms. These have improved. She has referral in place for health assistant at [facility] in August. I have reviewed t hat note, CT report showing mucosal thicken and lab results showing normal chem, and normal blood counts with the exception of mildly elevated wbc count. PHQ9 Depression scale: Date of Last Screening Total Score 6 (08/02/19 0900) (Printable questionnaires in Bahamian) Interpretation of Total Score: 1-4 = Minimal depression, 5-9 = Mild depression, 10-14 = Mod erate depression, 15-19 = Moderately severe depression, 20-27 = Severe depression 1. 1. Little interest or pleasure in doing things?: Nearly every day 2. 2. Feeling down, depressed, or hopeless?: More than half the days 3. 3. Trouble falling or staying asleep, or sleeping too much?: Not at all 4. 4. Feeling tired or having little energy?: Several days 5. 5. Poor appetite or overeating?: Not at all 6. 6. Feeling bad about yourself - or that you are a failure or have let yourself or you r family down?: Not at all 7. 7. Trouble concentrating on things, such as reading the newspaper or watching televis ion?: Not at all 8. 8. Moving or speaking so slowly that other people could have noticed. Or the opposite - being so fidgety or restless that you have been moving around a lot more than usual?: Not at all 9. 9. Thoughts that you would be better off , or of hurting yourself in some way?: N ot at all 10. If you checked off any problems, how difficult have these problems made it for you to do your work, take care of things at home, or get along with other people?: Not difficult at all General Anxiety Disorder (KAY-7): Total Score 14 (08/02/19899) (From KAY or Chronic Pain tab; printable questionnaires in Bahamian ) Interpretation of Total Score: 8-9 = consistent with Generalized anxiety disorder, >15 = se edwin 1. Feeling nervous, anxious, or on edge?: More than half the days (08/02/19899) 2. Not being able to stop or control worrying?: Nearly every day (08/02/19899) 3. Worrying too much about different things?: More than half the days (08/02/19899) 4. Trouble relaxing?: Several Days (08/02/19899) 5. Being so restless that it is hard to sit still?: Not at all (08/02/19899) 6. Becoming easily annoyed or irritable?: Nearly every day (08/02/19899) 7. Feeling afraid as if something awful might happen?: Nearly every day (08/02/19899) PREVENTIVE CARE/PRIOR VISITS Any recommendations from Health Maintenance: Preventative Services TOPIC LAST DONE NEXT DUE Vaccine: Influenza 06/12/2019 Cervical Cancer Screening (Pap) 01/23/2018 Vaccine: Dtap/Tdap/Td 06/02/2018 06/02/2028 Vaccine: Pneumococcal 19-64 (Ppsv23 Only) Medium Risk 01/23/2007 There is no immunization history on file for this patient. Allergies Allergen Reactions Keflex [Cephalexin] Anaphylaxis Albuterol Other (See Comments) "shakey" Cat Hair Extract Swelling Medications: Patient Reported Taking Dosage cetirizine-psuedoePHEDrine (ZYRTEC-D) 5-120 MG per tablet (Taking) Take 1 tablet by mouth Daily. Number of times this order has been changed since signin Order Audit Imogene desogestrel-ethinyl estradiol (AZURETTE) 0.15-0.02/0.01 MG (21/5) per tablet (Taking) Jordan e 1 tablet by mouth Daily. fluticasone (FLONASE) 50 mcg/nasal spray (Taking) 1 spray by Nasal route Daily. montelukast (SINGULAIR) 10 mg tablet (Taking) Take 1 tablet by mouth Daily. Number of times this order has been changed since signin Order Audit Imogene Past Medical History She has a past medical history of Acute non-recurrent maxillary sinusitis, Asthma, PCOS (po lycystic ovarian syndrome), and Seasonal allergic rhinitis due to other allergic trigger. Past Surgical History She has a past surgical history that includes ceasarean section, multiples; Refractive surg tiffany (Bilateral, 2010); Dental surgery; and Skin Excision. Family History: Her family history is not on file. Social History: Social History Socioeconomic History Marital status: Spouse [...] frequency: Weekly Comment: rarely Drug use: Never Review of Systems See HPI. Objective: Vitals: 08/02/19 0922 BP: 126/76 Pulse: 90 Resp: 20 Temp: 37.3 C (99.1 F) TempSrc: Temporal SpO2: 97% Weight: 99 kg (218 lb 4.1 oz) Physical Exam Constitutional: She is oriented to person, place, and time. She appears well-developed and well-nourished. No distress. Appropriately dressed and groomed HENT: Head: Normocephalic and atraumatic. Eyes: Conjunctivae are normal. Neck: Normal range of motion. Neck supple. No thyromegaly present. Cardiovascular: Normal rate and regular rhythm. No murmur heard. Pulmonary/Chest: Effort normal and breath sounds normal. No respiratory distress. She has n o wheezes. She has no rales. Musculoskeletal: She exhibits no edema. Patient reports she sometimes feels a pea-sized mass in the location of her xyphoid process . It is nonpalpable and nontender today. Lymphadenopathy: She has no cervical adenopathy. Neurological: She is alert and oriented to person, place, and time. Skin: Skin is warm and dry. Psychiatric: She has a normal mood and affect. Her behavior is normal. Tearful at times during visit. Nursing note and vitals reviewed. No results found for this or any previous visit. Assessment: 1. Generalized anxiety disorder hydrOXYzine hydrochloride (ATARAX) 25 mg tablet FLUoxetine (PROZAC) 10 mg capsule TSH Vitamin D, Deficiency Screen (25-Hydroxy) 2. Chest mass US Soft Tissue Other (Trunk) 3. Leukocytosis, unspecified type CBC w/ Auto Differential Plans: 1. Generalized anxiety disorder Denies SI/HI and contracted for safety. Provided phone number for Crisis HelpLine ) and informed to go to [facility] ED for psych evaluation in the event they become a harm to themselves or anyone else. Aim for 30 minutes of brisk activity daily. - Take medications as directed and call or return if you experience side effects - Consider counseling. - return if symptoms worsen or if you are having thoughts of self harm - Use your social support network to help you as needed - Work into your schedule activities that are stress relieving and improve your emotional w ell being. - hydrOXYzine hydrochloride (ATARAX) 25 mg tablet; Take 1 tablet by mouth every 6 hours as needed for Anxiety. Dispense: 60 tablet; Refill: 0 - FLUoxetine (PROZAC) 10 mg capsule; Take 1 capsule by mouth Daily. May increase to 2 tabs daily after 1 week. Dispense: 30 capsule; Refill: 0 Medication risks and benefits were reviewed in detail today with the patient who expresses understanding. Pt will call or return with problems or side effects. - TSH; Future - Vitamin D, Deficiency Screen (25-Hydroxy); Future 2. Chest mass Nonpalpable today, U/s ordered for further evaluation. - US Soft Tissue Other (Trunk); Future 3. Leukocytosis, unspecified type Slightly elevated at ED visit, rechecking. - CBC w/ Auto Differential; Future Follow-up: Return in about 2 weeks (around 08/16/2019), or if symptoms worsen or fail to imp rove, for mood and to review U/s results. Portions of this report were transcribed using voice recognition software. Every effort wa s made to ensure accuracy; however, inadvertent computerized privacy officer errors may be pre sent. documented in th is encounter Plan of Treatment + +---------+--------+ + + | Name | Type | Priori | Associated Diagnoses | Order Schedule | | | | ty | | | + +---------+--------+ + + | US Soft Tissue Other | Imaging | Routin | Chest mass | Expected: | | (Trunk) | | e | | 08/02/2019, Expires: | | | | | | 08/02/2020 | + +---------+--------+ + + documented as of this encounter Results Vitamin D, Deficiency Screen (25-Hydroxy) (08/02/2019 10:29 AM PDT) + +-------+ + + + | Component | Value | Ref Range | Performed | Pathologist | | | | | At | Signature | + +-------+ + + + | Vitamin D, | 34 | 30 - 100 ng/mL | [facility] | | | 25 Hydro[address] | | | [facility] | | | [facility] | | | | | [facility] - | | | | | | LABORATORY | | + +-------+ + + + + + | Specimen | + + | Blood | + + + + + + + | Performing | Address | City/State/Zipcode | Phone Number | | Organization | | | | + + + + + | [facility] | [address] | [place], [place] | [phone] | | [facility] | | [address] | | | - LABORATORY | | | | + + + + + TSH (08/02/2019 10:29 AM PDT) + +-------+ + + + | Component | Value | Ref Range | Performed | Pathologist | | | | | At | Signature | + +-------+ + + + | TSH | 1.46 | 0.36 - 3.74 | [facility] | | | | | uIU/mL | [facility] | | | | | | [facility] | | | | | | [facility] | | | | | | [facility] | | + +-------+ + + + + + | Specimen | + + | Blood | + + + + + + + | Performing | Address | City/State/Zipcode | Phone Number | | Organization | | | | + + + + + | [facility] | [address] | [place] | [phone] | | [facility] | | [address] | | | [facility] | | | | + + + + + CBC w/ Auto Differential (08/02/2019 10:29 AM PDT) + + + + + + | Component | Value | Ref Range | Performed | Pathologist | | | | | At | Signature | + + + + + + | WBC | 9.9 | 4.0 - 11.0 K/uL | [facility] | | | | | | [facility] | | | | | [facility] | | | | | [facility] | | | | | | [facility] | | + + + + + + | RBC | 4.81 | 3.70 - 5.20 | [facility] | | | | | M/uL | [facility] | | | | | | [facility] | | | | | | [facility] | | | | | | [facility] | | + + + + + + | Hemoglobin | 14.0 | 11.5 - 16.0 | [facility] | | | | | g/dL | [facility] | | | | | | [facility] | | | | | | [facility] | | | | | | [facility] | | + + + + + + | Hematocrit | 42.0 | 34.0 - 47.0 % | [facility] | | | | | | [facility] | | | | | | [facility] | | | | | | [facility] | | | | | | [facility] | | + + + + + + | MCV | 87.3 | 83.0 - 101.0 fL | [facility] | | | | | | [facility] | | | | | | [facility] | | | | | | [facility] | | | | | | [facility] | | + + + + + + | MCH | 29.1 | 28.0 - 35.0 pg | [facility] | | | | | | [facility] | | | | | | [facility] | | | | | | [facility] | | | | | | [facility] | | + + + + + + | MCHC | 33.3 | 32.0 - 36.0 | [facility] | | | | | g/dL | [facility] | | | | | | [facility] | | | | | | [facility] | | | | | | [facility] | | + + + + + + | RDW-CV | 12.2 | <15.0 % | [facility] | | | | | | [facility] | | | | | | [facility] | | | | | | [facility] | | | | | | [facility] | | + + + + + + | RDW-SD | 39.9 | 35.1 - 46.3 fL | [facility] | | | | | | [facility] | | | | | | [facility] | | | | | | [facility] | | | | | | [facility] | | + + + + + + | Platelet | 311 | 140 - 440 K/uL | [facility] | | | Count | | | [facility] | | | | | | [facility] | | | | | | [facility] | | | | | | [facility] | | + + + + + + | MPV | 9.9 | 6.5 - 12.4 fL | [facility] | | | | | | [facility] | | | | | | [facility] | | | | | | [facility] | | | | | | [facility] | | + + + + + + | % | 77.7 | 45.0 - 82.0 % | [facility] | | | Neutrophils | | | [facility] | | | | | | [facility] | | | | | | [facility] | | | | | | [facility] | | + + + + + + | % | 17.6 (L) | 20.0 - 45.0 % | [facility] | | | Lymphocytes | | | [facility] | | | | | | [facility] | | | | | | [facility] | | | | | | [facility] | | + + + + + + | % Monocytes | 4.2 | 4.0 - 12.0 % | [facility] | | | | | | [facility] | | | | | | [facility] | | | | | | [facility] | | | | | | [facility] | | + + + + + + | % | 0.0 | 0.0 - 5.0 % | [facility] | | | Eosinophils | | | [facility] | | | | | | [facility] | | | | | | [facility] | | | | | | [facility] | | + + + + + + | % Basophils | 0.4 | 0.0 - 1.0 % | [facility] | | | | | | [facility] | | | | | | [facility] | | | | | | [facility] | | | | | | [facility] | | + + + + + + | % Immature | 0.1Comment: For | 0.0 - 0.4 % | [facility] | | | Granulocyte | patients, use the | | [facility] | | | s | special reference ranges | | MEDICAL | | | | listed below. | | [facility] | | | | | | LAB[facility]ATORY | | + + + + + + | Absolute | 7.70 | 1.80 - 8.50 | [facility] | | | Neutrophils | | K/uL | [facility] | | | | | | [facility] | | | | | | [facility] | | | | | | [facility] | | + + + + + + | Absolute | 1.74 | 0.60 - 3.20 | [facility] | | | Lymphocytes | | K/uL | [facility] | | | | | | [facility] | | | | | | [facility] | | | | | | [facility] | | + + + + + + | Absolute | 0.42 | 0.00 - 1.00 | [facility] | | | Monocytes | | K/uL | [facility] | | | | | | [facility] | | | | | | [facility] | | | | | | [facility] | | + + + + + + | Absolute | 0.00 | 0.00 - 0.40 | [facility] | | | Eosinophils | | K/uL | [facility] | | | | | | [facility] | | | | | | [facility] | | | | | | [facility] | | + + + + + + | Absolute | 0.04 | 0.00 - 0.10 | [facility] | | | Basophils | | K/uL | [facility] | | | | | | [facility] | | | | | | [facility] | | | | | | [facility] | | + + + + + + | Absolute | 0.01Comment: For | 0.00 - 0.03 | [facility] | | | Immature | patients, use | K/uL | [facility] | | | Granulocyte | the special reference | | MEDICAL | | | s | ranges listed below. | | PARK | | | | | | LABORATORY | | + + + + + + + + | Specimen | + + | Blood | + + + + + | Narrative | Performed At | + + + | IMMATURE GRANULOCYTES - For patients, use the following | [facility] | | reference ranges: Trim. Absolute (K/uL) Percentage (%) | [facility] | | 1st 0.003-0.091 K/uL 0.0-0.9% 2nd 0.007-0.247 K/uL | [facility] | | 0.1-2.0% 3rd 0.018-0.456 K/uL 0.1-2.0% | LABORATORY | + + + + + + + + | Performing | Address | City/State/Zipcode | Phone Number | | Organization | | | | + + + + + | [facility] | [address] | [place] | [phone] | | [facility] | | [address] | | | [facility] | | | | + + + + + documented in this encounter Visit Diagnoses + + | Diagnosis | + + | Generalized anxiety disorder - Primary | + + | Chest mass Swelling, mass, or lump in chest | + + | Leukocytosis, unspecified type | + + documented in this encounter
--- OUTSIDE RECORDS SUMMARY | ~2019-08-26 | XMS | Encounter Summary ---
Demographics + + + | Address | [address] | | | [place] [address] | + + + | Home Phone | | + + + | Preferred Language | Unknown | + + + | Marital Status | | + + + | Gnosticism Affiliation | Unknown | + + + | Race | Unknown | + + + | Ethnic Group | Unknown | + + + Author + + + | Author | [facility] | | | and [place] | + + + | Organization | [facility] | | | and [place] [...] Team Providers + +------+ + | Care Seed Collector Name | Role | Phone | + +------+ + | Steff Hightower MD | PCP | | + +------+ + Reason for Visit +---------+ + | Reason | Comments | +---------+ + | Results | | +---------+ + Encounter Details +--------+ + + + + | Date | Type | Department | Care Team | Description | +--------+ + + + + | 08/05/ | Telephone | [facility] | Steff Hightower MD | Results | | 2019 | | [facility] | [address] | | | | | [address] | [place] | | | | | [place] | [address] | | | | | [address] | | | | | | [phone] | | | +--------+ + + + [...]
--- OUTSIDE RECORDS SUMMARY | ~2019-08-26 | XMS | Encounter Summary ---
Demographics + + + | Address | [address] | | | [place] [address] | + + + | Home Phone | | + + + | Preferred Language | Unknown | + + + | Marital Status | | + + + | Judaism Affiliation | Unknown | + + + | Race | Unknown | + + + | Ethnic Group | Unknown | + + + Author + + + | Author | [facility] | | | and [place] | + + + | Organization | [facility] | | | and [...] Team Providers + +------+ + | Care Branch Examiner Name | Role | Phone | + [...] [place] | | | | | | [address] | [address] [place] | | | | | | Phone: | [place] | | | | | | [phone] | [address] | | | | | | Fax: | Phone: | | | | | | [phone] | [phone] | | | | | | | Fax: | | | | | | | [phone] | +--------+ + + + + + Reason for Visit + + + | Reason | Comments | + + + | Referral | | + + + Encounter Details +--------+ + + + + | Date | Type | Department | Care Team | Description | +--------+ + + + + | 06/29/ | Telephone | [facility] [place] [facility] | Steff Hightower MD | Referral | | 2019 | | MEDICINE [place] | [address] | | | | | [address] | [place] | | | | | [place] | [address] | | | | | [address] | | | | | | [phone] | | | +--------+ + + + [...]
--- OUTSIDE RECORDS SUMMARY | ~2019-08-26 | XMS | Encounter Summary ---
Demographics + + + | Address | [address] | | | [place] [address] | + + + | Home Phone | | + + + | Preferred Language | Unknown | + + + | Marital Status | | + + + | Church Affiliation | Unknown | + + + | Race | Unknown | + + + | Ethnic Group | Unknown | + + + Author + + + | Author | [facility] | | | and [place] | + + + | Organization | [facility] | | | and [...] Team Providers + +------+ + | Care Candy Maker Helper Name | Role | Phone | + [...] + + | 08/02/ | Office | [facility] | Adilia Cash, | Generalized anxiety | | 2019 | Visit | MEDICINE SUR[facility] | HOSPITAL SECURITY OFFICER [address] | disorder (Primary | | | | [address] | [place] | Dx); Chest mass; | | | | [place] | [address] | Leukocytosis, | | | | [address] | | unspecified type | | | | [phone] | | | +--------+---------+ + + + [...] ell being. Phone number for Crisis HelpLine ([phone]) or go to ED for evaluation in the event you become a harm to yourself or anyone else. Crisis text line also available at [id number] Chest Wall Pain: Costochondritis The chest pain [...] by your healthcare provider Date Last Reviewed: 09/11/201619999733-2803 [employer]. [address] [place] [address]. All righ ts reserved. This information is [...] to cope by practicing relaxation and taking [place] Bridge's Wort. Dc'd during . Mood is worsening. On migue days she get out and goes for walks with the boys. works [employer], so sle eps during the day. Sleeping well. Has not tried counseling, willing to consider, moving to [place] in March and wants to start then. Gets short breaks from the boys. No SI/HI. Has not been on medication for mood and would like to try. First day of LMP last week. I have reviewed notes and lab from ED visit where she was seen for allergy symptoms. These have improved. She has referral in place for automotive service assistant at [facility] in August. I have reviewed t hat note, CT report showing mucosal thicken and lab results showing normal chem, and normal blood counts with the exception of mildly elevated wbc count. PHQ9 Depression scale: Date of Last Screening Total Score 6 (08/02/19 0900) (Printable questionnaires in East Timorese) Interpretation of Total Score: 1-4 = Minimal [...] or Chronic Pain tab; printable questionnaires in [place]se ) Interpretation of Total Score: 8-9 = [...] has been changed since signin Order Audit [place] desogestrel-ethinyl estradiol (AZURETTE) 0.15-0.02/0.01 MG (21/5) per tablet (Taking) Jordan e 1 tablet by mouth Daily. fluticasone (FLONASE) 50 mcg/nasal spray (Taking) 1 spray by Nasal route Daily. montelukast (SINGULAIR) 10 mg tablet (Taking) Take 1 tablet by mouth Daily. Number of times this order has been changed since signin Order [facility] [place] Past Medical History She has a past [...] HelpLine ) and informed to go to [facility] ED for psych evaluation in the event [...] made to ensure accuracy; however, inadvertent computerized leather lacer errors may be pre sent. documented in [...] + | [facility] | [address] | [place], [place] | [phone] | | [facility] | | [address] | | | - LABORATORY | | [...] + + + | [facility] | [address] | [place] | [phone] | | [facility] | | [address] | | | [facility] | | [...] [address] | [place] | [phone] | | [facility] | | [address] | | | [facility] | | [...]
--- OUTSIDE RECORDS SUMMARY | ~2019-08-26 | XMS | Encounter Summary ---
Demographics + + + | Address | [address] | | | [place] [address] | + + + | Home Phone | | + + + | Preferred Language | Unknown | + + + | Marital Status | | + + + | Yarsanism Affiliation | Unknown | + + + | Race | Unknown | + + + | Ethnic Group | Unknown | + + + Author + + + | Author | [facility] | | | and [place] | + + + | Organization | [facility] | | | and [place] [...] Team Providers + +------+ + | Care Doctor Of Naprapathy Name | Role | Phone | + [...] Results | | 2019 | | [facility] | [address] | | | | | [address] | [place] | | | | | [place] | [address] | | | | | [address] | | | | | | [phone] | | | +--------+ + + + [...]
--- OUTSIDE RECORDS SUMMARY | ~2019-08-26 | XMS | Encounter Summary ---
Demographics + + + | Address | [address] | | | [place] [address] | + + + | Home Phone | | + + + | Preferred Language | Unknown | + + + | Marital Status | | + + + | Jainism Affiliation | Unknown | + + + | Race | Unknown | + + + | Ethnic Group | Unknown | + + + Author + + + | Author | [facility] | | | and [place] | + + + | Organization | [facility] | | | and [place] [...] Team Providers + +------+ + | Care Hotel Valet Attendant Name | Role | Phone | + [...] + + | 09/12/ | Office | [facility] | Steff Hightower MD | Encounter to | | 2019 | Visit | [facility] | [address] | establish care | | | | [address] | [place] | (Primary Dx); Mild | | | | [place] | [address] | intermittent asthma | | | | [address] | | without | | | | [phone] | | complication; | | | | [...] encounter Patient Instructions Patient Instructions Mee Blanc, FRONT DESK TEAM MEMBER - 06/23/2019 9:15 AM PDTFormatting of this no te might be different from the original. Return in about 1 year (around 06/23/2020), or if symptoms worsen or fail to improve, for An nual Exam.If you have any questions, please call us [phone]. Appointment reminders by text: Do you have an upcoming appointment? Receive a test reminder! Text the word AppFog to [phone] to opt. in and ask our hotel front office manager for more information laron bowman your visit [...] the eyes or mouth Date Last Reviewed: 12/10/201619998690-4074 The [employer]. [address] [place] [address]. All righ ts reserved. This information is [...] week. Cover mattress and pillows with special snwc-uugf-dwpakudkzg. Don t use upholstered furniturelike sofas or [...] spray bottles instead of aerosols. Pour liquid setter off onto a rag or cloth instead of [...] with soap and warm water orusea hand inside sales agent containing alco hol. Get a yearly flu [...] Be sure to read the labels on fzvs-wwo-apnvmxs medicines.They may have ingredients hay t cause [...] about these symp toms. Date Last Reviewed: 10/12/201619994681-[address] [employer] [place] [address]. All righ ts reserved. This information is [...] carpeting. Think about buying a home air aircraft cleaner with a HEPA (high-efficiency particulate air) [...] reptiles don't cause allergies. Date Last Reviewed: 07/12/201619992350-2404 [employer]. [address] [place] [address], [place] [address]. All righ ts reserved. This information is [...] ", she is been see n in [facility] in [place] for sinus infection since and had doxycycline [...] 06/23/2019 in [facility] [place] PHQ-9 Total Score (Patient Health Questionnaire) 4 [...] tablet by mouth Daily. 90 tablet 3 vgpdjwwz-mmubmrqxo-ajbnfvxaetruu (MAXITROL) 3.5-34048-1.1 ophthalmic ointment 4 times d aily. No [...] screening age. -Pap Smear: done 09/2018 [place]. Will request record. Assessment & Plan: Healthy [...] per tablet; Take 1 tablet by mouth [address]. Dispense: 30 tablet; Refill: 0 4. [...] Portions of this report were transcribed using PowerDsine voice recognition soft miranda. Although effort was [...]
--- OUTSIDE RECORDS SUMMARY | ~2019-08-26 | XMS | Encounter Summary ---
Demographics + + + | Address | [address] | | | [place] [address] | + + + | Home Phone | | + + + | Preferred Language | Unknown | + + + | Marital Status | | + + + | Bahai Affiliation | Unknown | + + + | Race | Unknown | + + + | Ethnic Group | Unknown | + + + Author + + + | Author | [facility] | | | and [place] | + + + | Organization | [facility] | [...] Team Providers + +------+ + | Care Shuttle Preparation Supervisor Name | Role | Phone | + [...] bone) | | 2019 | | MEDICINE [place] | [address] | | | | | [address] | [place] | | | | | [place] | [address] | | | | | [address] | | | | | | [phone] | | | +--------+ + + + [...]
--- OUTSIDE RECORDS SUMMARY | ~2019-08-26 | XMS | Encounter Summary ---
Demographics + + + | Address | [address] | | | [place] [address] | + + + | Home Phone | | + + + | Preferred Language | Unknown | + + + | Marital Status | | + + + | Nondenominational Affiliation | Unknown | + + + | Race | Unknown | + + + | Ethnic Group | Unknown | + + + Author + + + | Author | [facility] | | | and [place] | + + + | Organization | [facility] | | [...] Team Providers + +------+ + | Care Lab Tech Name | Role | Phone | + [...] Results | | 2019 | | MEDICINE [place] | [address] | | | | | [address] | [place] | | | | | [place] | [address] | | | | | [address] | | | | | | [phone] | | | +--------+ + + + [...]
--- OUTSIDE RECORDS SUMMARY | ~2019-08-26 | XMS | Encounter Summary ---
Demographics + + + | Address | [address] | | | [place] [address] | + + + | Home Phone | | + + + | Preferred Language | Unknown | + + + | Marital Status | | + + + | Temple Affiliation | Unknown | + + + | Race | Unknown | + + + | Ethnic Group | Unknown | + + + Author + + + | Author | [facility] | | | and [place] | + + + | Organization | [facility] | | | and [place] [...] Team Providers + +------+ + | Care Public Affairs Manager Name | Role | Phone | [...] Results | | 2019 | | [facility] | [address] | | | | | [address] | [place] | | | | | [place] | [address] | | | | | [address] | | | | | | [phone] | | | +--------+ + + + [...]
--- OUTSIDE RECORDS SUMMARY | ~2019-08-26 | XMS | Encounter Summary ---
Demographics + + + | Address | [address] | | | [place] [address] | + + + | Home Phone [...] | Organization | [facility] | | | and [place] [...] Team Providers + +------+ + | Care Instrument Maintenance Supervisor Name | Role | Phone | [...] | 07/28/ | Telephone | [facility] | Steff Hightower MD | Records Request; ED | | 2019 | | MEDICINE [place] | [address] | Follow-up | | | | [address] | [place] | | | | | [place] | [address] | | | | | [address] | | | | | | [phone] | | | +--------+ + + + [...]
--- OUTSIDE RECORDS SUMMARY | ~2019-08-26 | XMS | Encounter Summary ---
Demographics + + + | Address | [address] | | | [place] [address] | + + + | Home Phone | | + + + | Preferred Language | Unknown | + + + | Marital Status | | + + + | Nondenominational Affiliation | Unknown | + + + | Race | Unknown | + + + | Ethnic Group | Unknown | + + + Author + + + | Author | [facility] | | | and [place] | + + + | Organization | [facility] | | | and [...] Team Providers + +------+ + | Care Still Operator Gin Name | Role | Phone | + [...] [place] | | | | | | [address] | [address] | | | | | | Phone: | Phone: | | | | | | [phone] | [phone] | | | | | | Fax: | Fax: | | | | | | [phone] | [phone] | +--------+ + + + + + Reason for Visit + + + | Reason | Comments | + + + | Depression | | + + + Encounter Details +--------+---------+ + + + | Date | Type | Department | Care Team | Description | +--------+---------+ + + + | 08/23/ | Office | [facility] | Steff Hightower MD | Generalized anxiety | | 2019 | Visit | MEDICINE [place] | [address] | disorder (Primary | | | | [address] | [place] | Dx); Seasonal | | | | [place] | [address] | allergic rhinitis | | | | [address] | | due to pollen | | | | [phone] | | | +--------+---------+ + + + [...] encounter Patient Instructions Patient Instructions Mee Blanc, TRANSPORTATION ANALYST - 08/23/2019 11:30 AM PSTFormatting of this no te might be different from the original. Return in about 1 year (around 08/23/2020), or if symptoms worsen or fail to improve, for A nnual Exam.If you have any questions, please call us [phone]. Appointment reminders by text: Do you have an upcoming appointment? Receive a test reminder! Text the word Executive Caddie to [phone] to opt. in and ask our net front end developer for more information laron bowman your visit [...] and change your clothes. Date Last Reviewed: 06/12/201619999881-6699 The [employer]. [address] [place] [address], [place] [address]. All righ ts reserved. This information is [...] teach you skills to help manage anxiety residential. Bu t change doesn t happen right [...] in the long run. Date Last Reviewed: 10/12/201619992191-[address] [employer] [place] [address]. All righ ts reserved. This information is [...] seen by Dr. Howard at ENT at [facility] and did not have a goo d experience seeing. "He would not listen to me"... She has been using the netti pot, singular and Zyrtec and would like a referral to an ENT and woven wood shade assembler in [place] Dr. Khoury which we are doing today. [...] PHQ9 SCORE Office Visit from 08/23/2019 in [facility] Office Visit from in [facility] Office Visit from 06/23/2019 in [facility] PHQ-9 Total Score (Patient Health Questionnaire) 1 6 4 ANXIETY/STRESS SCORE Office Visit from 08/23/2019 in [facility] Office Visit from in [facility] KAY-7 Score (General Anxiety Disorder) 0 14 [...] New referral placed for Dr.Steven Ashton in [place]. Orders: - ENT, External - AMB Referral The patient was satisfied with the care received and voiced understanding of the issues dis cussed and the plan. Return in about 1 year (around 08/23/2020), or if symptoms worsen or fail to improve, for A nnual Exam. Electronically signed by Steff Hightower MD Portions of this report were transcribed using Wanova voice recognition soft miranda. Although effort was [...]
--- OUTSIDE RECORDS SUMMARY | ~2019-08-26 | XMS | Encounter Summary ---
Demographics + + + | Address | [address] | | | [place] [address] | + + + | Home Phone | | + + + | Preferred Language | Unknown | + + + | Marital Status | | + + + | Yarsanism Affiliation | Unknown | + + + | Race | Unknown | + + + | Ethnic Group | Unknown | + + + Author + + + | Author | [facility] | | | and [place] | + + + | Organization | [facility] | | | and [...] Team Providers + +------+ + | Care Endoscopy Technician Name | Role | Phone | [...] + | 07/28/ | Telephone | [facility] | Steff Hightower MD | Records Request; ED | | 2019 | | MEDICINE [place] | [address] | Follow-up | | | | [address] | [place] | | | | | [place] | [address] | | | | | [address] | | | | | | [phone] | | | +--------+ + + + [...]
--- OUTSIDE RECORDS SUMMARY | ~2019-08-26 | XMS | Encounter Summary ---
Demographics + + + | Address | [address] | | | [place] [address] | + + + | Home Phone | | + + + | Preferred Language | Unknown | + + + | Marital Status | | + + + | Rastafarian Affiliation | Unknown | + + + | Race | Unknown | + + + | Ethnic Group | Unknown | + + + Author + + + | Author | [facility] | | | and [place] | + + + | Organization | [facility] | [...] Team Providers + +------+ + | Care Historian Research Assistant Name | Role | Phone | + +------+ + PCP | Unavailable | + +------+ + Reason for Visit +--------+ + | Reason | Comments | +--------+ + | URI | seen [place] 4 [place] ago, given ear drops. pt [...] non-recurrent | | 2019 | Visit | [facility] | MERCHANDISE EXAMINER [address] | maxillary sinusitis | | | | CARE [address] | [place], [place] | (Primary Dx); | | | | [address] | [address] | Seasonal allergic | | | | [place], [place] | [phone] | rhinitis due to | | | | [address] | | other allergic | | | | [phone] | | trigger | +--------+---------+ + + [...] if you feel better. Date Last Reviewed: 07/12/201619994942-9623 [employer]. [address] [place] [address], [place] [address]. All righ ts reserved. This information is [...] the eyes or mouth Date Last Reviewed: 12/10/201619999671-0040 [employer]. [address] [place] [address]. All righ ts reserved. This information is not intended as a substitute for professional medical care. Always follow your healthcare professional's instructions. documented in this encounter Progress Notes Venkat Rodas ARNP - 06/14/2019 11:45 AM PDT Subjective Patient ID: Mariella Obregon is a 29 y.o. female. Chief Complaint Patient presents with URI seen at [place] 4 [place] ago, given ear drops. pt [...]
--- OUTSIDE RECORDS SUMMARY | ~2019-08-26 | XMS | Clinical Summary ---
Demographics + + + | Address | [address] | | | [place] [address] | + + + | Home Phone | | + + + | Preferred Language | Unknown | + + + | Marital Status | | + + + | Presybeterian Affiliation | Unknown | + + + | Race | Unknown | + + + | Ethnic Group | Unknown | + + + Author + + + | Author | [facility] | | | and [place] | + + + | Organization | [facility] | | | and [place] [...] Team Providers + +------+ + | Care High School Math Teacher Name | Role | Phone | [...] | | 10/2 | Disco | | nqaulmgy-juhvfqqyj-p | | | | | 2/20 | ntinu | | examethasone | | | | | 19 | ed | | (MAXITROL) | | | | | | (Ther | | 3.5-67120-9.1 | | | | | | apy [...] | | age.-Pap Smear: done 09/2018 in [place]. Will request | | record. Last Assessment [...] [facility] | + + Encounters +--------+ + + [...] | | 2018 | Visit | | DENTAL INSTRUCTOR | disorder (Primary | | | | [...] | | 2018 | Visit | | DENTAL INSTRUCTOR | maxillary sinusitis | | | | [...] + + + | [facility] | [address] | [place] | [phone] | | [facility] | | [address] | | | [facility] | | [...] [address] | [place] | [phone] | | [facility] | | [address] | | | - LABORATORY | | [...] + + + | [facility] | [address] | [place] | [phone] | | [facility] | | [address] | | | [facility] | | [...] +---------+------+ | [facility] | PHP | [id number] | 05/12/20 | [phone] | | PPO | | PLAN | PEBB | | 15-Pre | 5 | | | | | STATEW | | sent | | | | | | JOSE | | | | | | + +--------+ +--------+ +---------+------+ | [facility] | PHP | [id number] | 10/12/19 | [phone] | | PPO [...] | 1990 | [phone] | [place] [address] | | | royer | | | 4 (Home) | | + +--------+ +--------+ + + | Mariella Obregon | Person | Self | [birth year] | [address] | | | al/Fam | | 1989 | [phone] | [place] [address] | | | royer | | | 4 (Home) | | + +--------+ +--------+ + + Advance Directives + + + + + | Type | Date Recorded | Patient | Explanation | | | | Cartography Supervisor | | + + + + + | Power of | | | | | Training Professional | | | | + + + + + | Advance | | | | | Directive | | | | + + + + +
--- OUTSIDE RECORDS SUMMARY | ~2019-08-26 | XMS | Encounter Summary ---
Demographics + + + | Address | [address] | | | [place] [address] | + + + | Home Phone | | + + + | Preferred Language | Unknown | + + + | Marital Status | | + + + | Yazidism Affiliation | Unknown | + + + | Race | Unknown | + + + | Ethnic Group | Unknown | + + + Author + + + | Author | [facility] | | | and [place] | + + + | Organization | [facility] | | | and [...] Team Providers + +------+ + | Care Glove Wrapper Name | Role | Phone | + [...] Results | | 2019 | | MEDICINE [place] | [address] | | | | | [address] | [place] | | | | | [place] | [address] | | | | | [address] | | | | | | [phone] | | | +--------+ + + + [...]
--- OUTSIDE RECORDS SUMMARY | ~2019-08-26 | XMS | Clinical Summary ---
Demographics + + + | Address | [address] | | | [place] [address] | + + + | Home Phone | | + + + | Preferred Language | Unknown | + + + | Marital Status | | + + + | Evangelical Affiliation | Unknown | + + + | Race | Unknown | + + + | Ethnic Group | Unknown | + + + Author + + + | Author | [facility] | | | and [place] | + + + | Organization | [facility] | | [...] Team Providers + +------+ + | Care Soft Sugar Supervisor Name | Role | Phone | [...] | | 10/2 | Disco | | [id number] | | | | | 2/20 | ntinu | | examethasone | | | | | 19 | ed | | (MAXITROL) | | | | | | (Ther | | [phone] | | | | | | apy [...] | | age.-Pap Smear: done 09/2018 in [place]. Will request | | record. Last Assessment [...] [facility] | + + Encounters +--------+ + + [...] | | 2018 | Visit | | HELPDESK ANALYST | disorder (Primary | | | | [...] | | 2018 | Visit | | HELPDESK ANALYST | maxillary sinusitis | | | | [...] + + | [facility] | [address] | [place] | [phone] | | [facility] | | [address] | | | [facility] | | [...] [address] | [place] | [phone] | | [facility] | | [address] | | | - LABORATORY | | [...] + + + | [facility] | [address] | [place] | [phone] | | [facility] | | [address] | | | [facility] | | [...] +---------+------+ | [facility] | PHP | [id number] | 05/12/20 | [phone] | | PPO | | PLAN | PEBB | | 15-Pre | 5 | | | | | STATEW | | sent | | | | | | JOSE | | | | | | + +--------+ +--------+ +---------+------+ | [facility] | PHP | [id number] | 10/12/19 | [phone] | | PPO [...] | 1990 | [phone] | [place] [address] | | | royer | | | 4 (Home) | | + +--------+ +--------+ + + | Mariella Obregon | Person | Self | [birth year] | [address] | | | al/Fam | | 1989 | [phone] | [place] [address] | | | royer | | | 4 (Home) | | + +--------+ +--------+ + + Advance Directives + + + + + | Type | Date Recorded | Patient | Explanation | | | | Advisory Intern | | + + + + + | Power of | | | | | Nurse Leader | | | | + + + + + | Advance | | | | | Directive | | | | + + + + +
--- OUTSIDE RECORDS SUMMARY | ~2019-08-26 | XMS | Encounter Summary ---
Demographics + + + | Address | [address] | | | [place] [address] | + + + | Home Phone | | + + + | Preferred Language | Unknown | + + + | Marital Status | | + + + | Mu-Ism Affiliation | Unknown | + + + | Race | Unknown | + + + | Ethnic Group | Unknown | + + + Author + + + | Author | [facility] | | | and [place] | + + + | Organization | [facility] | | [...] Team Providers + +------+ + | Care Phonograph Cartridge Assembler Name | Role | Phone | [...] [place] | | | | | | [address] | [address] | | | | | | Phone: | Phone: | | | | | | [phone] | [phone] | | | | | | Fax: | Fax: | | | | | | [phone] | [phone] | +--------+ + + + + + Reason for Visit + + + | Reason | Comments | + + + | Depression | | + + + Encounter Details +--------+---------+ + + + | Date | Type | Department | Care Team | Description | +--------+---------+ + + + | 08/23/ | Office | [facility] | Steff Hightower MD | Generalized anxiety | | 2019 | Visit | [facility] [place] | [address] | disorder (Primary | | | | [address] | [place] | Dx); Seasonal | | | | [place] | [address] | allergic rhinitis | | | | [address] | | due to pollen | | | | [phone] | | | +--------+---------+ + + + [...] encounter Patient Instructions Patient Instructions Mee Blanc, COOK SOUP - 08/23/2019 11:30 AM PSTFormatting of this no te might be different from the original. Return in about 1 year (around 08/23/2020), or if symptoms worsen or fail to improve, for A nnual Exam.If you have any questions, please call us [phone]. Appointment reminders by text: Do you have an upcoming appointment? Receive a test reminder! Text the word Apsmart to [phone] to opt. in and ask our front office representative for more information laron bowman your visit [...] and change your clothes. Date Last Reviewed: 06/12/201619991624-2252 [employer]. [address] [place] [address], [place] [address]. All righ ts reserved. This information is [...] teach you skills to help manage anxiety snf. Bu t change doesn t happen right [...] in the long run. Date Last Reviewed: 10/12/201619999407-[address] [employer] [place] [address]. All righ ts reserved. This information is [...] seen by Dr. Howard at ENT at [facility] and did not have a goo d experience seeing. "He would not listen to me"... She has been using the netti pot, singular and Zyrtec and would like a referral to an ENT and bad cloth checker in [place] Dr. Khoury which we are doing today. [...] PHQ9 SCORE Office Visit from 08/23/2019 in [facility] Office Visit from in [facility] Office Visit from 06/23/2019 in [facility] PHQ-9 Total Score (Patient Health Questionnaire) 1 6 4 ANXIETY/STRESS SCORE Office Visit from 08/23/2019 in [facility] Office Visit from in [facility] KAY-7 Score (General Anxiety [...] New referral placed for Dr.Steven Ashton in [place]. Orders: - ENT, External - AMB Referral The patient was satisfied with the care received and voiced understanding of the issues dis cussed and the plan. Return in about 1 year (around 08/23/2020), or if symptoms worsen or fail to improve, for A nnual Exam. Electronically signed by Steff Hightower MD Portions of this report were transcribed using Hightower voice recognition soft miranda. Although effort was [...]
--- OUTSIDE RECORDS SUMMARY | ~2019-08-26 | XMS | Encounter Summary ---
Demographics + + + | Address | [address] | | | [place] [address] | + + + | Home Phone | | + + + | Preferred Language | Unknown | + + + | Marital Status | | + + + | Restorationist Affiliation | Unknown | + + + | Race | Unknown | + + + | Ethnic Group | Unknown | + + + Author + + + | Author | [facility] | | | and [place] | + + + | Organization | [facility] | | | and [...] Team Providers + +------+ + | Care Senior Designer/Art Director Name | Role | Phone | + [...] | | | | [place] | [place] [address] | | | | | [address] | [phone] | | | | | [phone] | | | +--------+ + + + [...]
--- OUTSIDE RECORDS SUMMARY | ~2019-08-26 | XMS | Encounter Summary ---
Demographics + + + | Address | [address] | | | [place] [address] | + + + | Home Phone | | + + + | Preferred Language | Unknown | + + + | Marital Status | | + + + | Pentecostalism Affiliation | Unknown | + + + | Race | Unknown | + + + | Ethnic Group | Unknown | + + + Author + + + | Author | [facility] | | | and [place] | + + + | Organization | [facility] | [...] Team Providers + +------+ + | Care Network Mgr Name | Role | Phone | + [...] bone) | | 2019 | | [facility] | [address] | | | | | [address] | [place] | | | | | [place] | [address] | | | | | [address] | | | | | | [phone] | | | +--------+ + + + [...]
--- OUTSIDE RECORDS SUMMARY | ~2019-08-26 | XMS | Encounter Summary ---
Demographics + + + | Address | [address] | | | [place] [address] | + + + | Home Phone | | + + + | Preferred Language | Unknown | + + + | Marital Status | | + + + | Faith Affiliation | Unknown | + + + | Race | Unknown | + + + | Ethnic Group | Unknown | + + + Author + + + | Author | [facility] | | | and [place] | + + + | Organization | [facility] | | | and [place] | + + + | Address | Unknown | + + + | Phone | Unavailable | + + + Support + + +---------+ + | Name | Relationship | Address | Phone | + + +---------+ + | Jluián Sabas | ECON | Unknown | | + + +---------+ + Care Team Providers + +------+ + | Care Client Success Director Name | Role | Phone | + +------+ + PCP | Unavailable | + +------+ + Reason for Visit +--------+ + | Reason | Comments | +--------+ + | URI | seen at in [place] 4 days ago, given ear drops. pt states | | | its not helping, now both ears are hurting worse and feeling more | | | pressure | +--------+ + Encounter Details +--------+---------+ + + + | Date | Type | Department | Care Team | Description | +--------+---------+ + + + | 06/14/ | Office | [facility] | Venkat Rodas, | Acute non-recurrent | | 2019 | Visit | [facility] | EARLY MORNING [address] | maxillary sinusitis | | | | CARE [address] | [place], [place] | (Primary Dx); | | | | [address] | [address] | Seasonal allergic | | | | [place], [place] | [phone] | rhinitis due to | | | | [address] | | other allergic | | | | [phone] | | trigger | +--------+---------+ + + [...] if you feel better. Date Last Reviewed: 07/12/201619991995-0650 [employer]. [address] [place] [address], [place] [address]. All righ ts reserved. This information is [...] the eyes or mouth Date Last Reviewed: 12/10/201619999839-0470 [employer]. [address] [place] [address]. All righ ts reserved. This information is not intended as a substitute for professional medical care. Always follow your healthcare professional's instructions. documented in this encounter Progress Notes Venkat Rodas ARNP - 06/14/2019 11:45 AM PDT Subjective Patient ID: Mariella Obregon is a 29 y.o. female. Chief Complaint Patient presents with URI seen at in [place] 4 days ago, given ear drops. pt [...]
--- OUTSIDE RECORDS SUMMARY | ~2019-08-26 | XMS | Encounter Summary ---
Demographics + + + | Address | [address] | | | [place] [address] | + + + | Home Phone [...] | Organization | [facility] | | | and [place] [...] Team Providers + +------+ + | Care Talkback Host Name | Role | Phone | + [...] [place] | | | | | | [address] | [address] [place] | | | | | | Phone: | [place] | | | | | | [phone] | [address] | | | | | | Fax: | Phone: | | | | | | [phone] | [phone] | | | | | | | Fax: | | | | | | | [phone] | +--------+ + + + + + Reason for Visit + + + | Reason | Comments | + + + | Referral | | + + + Encounter Details +--------+ + + + + | Date | Type | Department | Care Team | Description | +--------+ + + + + | 06/29/ | Telephone | [facility] [place] [facility] | Steff Hightower MD | Referral | | 2019 | | MEDIC[facility] [place] | [address] | | | | | [address] | [place] | | | | | [place] | [address] | | | | | [address] | | | | | | [phone] | | | +--------+ + + + [...]
--- OUTSIDE RECORDS SUMMARY | ~2019-08-26 | XMS | Encounter Summary ---
Demographics + + + | Address | [address] | | | [place] [address] | + + + | Home Phone [...] | Organization | [facility] | | | and [place] [...] Team Providers + +------+ + | Care Biotech Production Specialist Name | Role | Phone | [...] Question | | 2019 | | [facility]IC[facility] [place] | [address] | | | | | [address] | [place] | | | | | [place] | [address] | | | | | [address] | | | | | | [phone] | | | +--------+ + + + [...]
--- OUTSIDE RECORDS SUMMARY | ~2019-08-26 | XMS | Encounter Summary ---
Demographics + + + | Address | [address] | | | [place] [address] | + + + | Home Phone | | + + + | Preferred Language | Unknown | + + + | Marital Status | | + + + | Judaism Affiliation | Unknown | + + + | Race | Unknown | + + + | Ethnic Group | Unknown | + + + Author + + + | Author | [facility] | | | and [place] | + + + | Organization | [facility] | | | and [...] Team Providers + +------+ + | Care Hand Wood Sander Name | Role | Phone | + [...] Results | | 2019 | | [facility] | [address] | | | | | [address] | [place] | | | | | [place] | [address] | | | | | [address] | | | | | | [phone] | | | +--------+ + + + [...]
[2019-08-26] MEDS ORDERED: FLUOXETINE HCL10 MG PO (22:37)
[2019-08-26] MEDS ORDERED: MONTELUKAST SOD10 MG PO (22:37)
[2019-08-26] MEDS ORDERED: ZYRTEC-D TABLE1 EACH PO (22:37)
[2019-08-26] MEDS ORDERED: AZURETTE 28 DA1 EACH PO (22:38)
== END 2019-08-26 23:25 | disposition home or self-care (01) ==
LOC: ED 22:24
DX: R06.00 Dyspnea, unspecified (principal); F32.9 Major depressive disorder, single episode, unspecified; Z88.1 Allergy status to other antibiotic agents; Z79.899 Other long term (current) drug therapy
CPT/HCPCS: 99284; J1100

== ENCOUNTER 2019-08-28 15:48 | Emergency (ER) | payer OTHER ==
[~2019-08-28] VITALS: Ht 175.3 cm; Wt 97.1 kg
--- OUTSIDE RECORDS SUMMARY | ~2019-08-28 | XMS | Encounter Summary ---
Demographics + + + | Address | [address] | | | [place] [address] | + + + | Home Phone | | + + + | Preferred Language | Unknown | + + + | Marital Status | | + + + | Sikh Affiliation | Unknown | + + + | Race | Unknown | + + + | Ethnic Group | Unknown | + + + Author + + + | Author | [facility] | | | and [place] | + + + | Organization | [facility] | | | and [place] | + + + | Address | Unknown | + + + | Phone | Unavailable | + + + Support + + +---------+ + | Name | Relationship | Address | Phone | + + +---------+ + | Julián Sabas | ECON | Unknown | | + + +---------+ + Care Team Providers + +------+ + | Care Assistant Warehouse Manager Name | Role | Phone | + +------+ + | Steff Hightower MD | PCP | | + +------+ + Reason for Visit + + + | Reason | Comments | + + + | Records Request | | + + + | ED Follow-up | | + + + Encounter Details +--------+ + + + + | Date | Type | Department | Care Team | Description | +--------+ + + + + | 07/28/ | Telephone | [facility] | Steff Hightwoer MD | Records Request; ED | | 2019 | | [facility]IC[facility] [place] | [address] | Follow-up | | | | [address] | [place] | | | | | [place] | [address] | | | | | [address] | | | | | | [phone] | | | +--------+ + + + + Social History + +-------+ +--------+------+ | Tobacco Use | Types | Packs/Day | Years | Date | | | | | Used | | + +-------+ +--------+------+ | Never Smoker | | | | | + +-------+ +--------+------+ + +---+---+---+ | Smokeless Tobacco: | | | | | Never Used | | | | + +---+---+---+ + + +---------+ + | Alcohol Use | Drinks/Week | oz/Week | Comments | + + +---------+ + | Yes | | | | + + +---------+ + + + + + | Alcohol Habits | Answer | Date Recorded | + + + + | How often do you have a drink containing | 2-4 times a month | 06/23/2019 | | alcohol? | | | + + + + | How many drinks containing alcohol do you | 1 or 2 | 06/23/2019 | | have on a typical day when you are | | | | drinking? | | | + + + + | How often do you have six or more drinks on | Weekly | 06/23/2019 | | one occasion? | | | + + + + + + + | Sex Assigned at | Date Recorded | | | | + + + | Not on file | | + + + + + + + | Job Start Date | Occupation | Industry | + + + + | Not on file | Not on file | Not on file | + + + + + + + + | Travel History | Travel Start | Travel End | + + + + + + | No recent travel history available. | + + documented as of this encounter Plan of Treatment Not on filedocumented as of this encounter Visit Diagnoses Not on filedocumented in this encounter"
--- OUTSIDE RECORDS SUMMARY | ~2019-08-28 | XMS | Encounter Summary ---
Demographics + + + | Address | [address] | | | [place] [address] | + + + | Home Phone | | + + + | Preferred Language | Unknown | + + + | Marital Status | | + + + | Mu-Ism Affiliation | Unknown | + + + | Race | Unknown | + + + | Ethnic Group | Unknown | + + + Author + + + | Author | [facility] | | | and [place] | + + + | Organization | [facility] | | | and [place] [...] Team Providers + +------+ + | Care Software Engineering Manager Name | Role | Phone | + +------+ + | Steff Hightower MD | PCP | | + +------+ + Reason for Visit + + + | Reason | Comments | + + + | Medication Question | | + + + Encounter Details +--------+ + + + + | Date | Type | Department | Care Team | Description | +--------+ + + + + | 07/08/ | Telephone | [facility] | Steff Hightower MD | Medication Question | | 2019 | | [facility] [place] | [address] | | | | | [address] | [place] | | | | | [place] | [address] | | | | | [address] | | | | | | [phone] | | | +--------+ + + + [...]
--- OUTSIDE RECORDS SUMMARY | ~2019-08-28 | XMS | Encounter Summary ---
Demographics + + + | Address | [address] | | | [place] [address] | + + + | Home Phone | | + + + | Preferred Language | Unknown | + + + | Marital Status | | + + + | Episcopal Affiliation | Unknown | + + + | Race | Unknown | + + + | Ethnic Group | Unknown | + + + Author + + + | Author | [facility] | | | and [place] | + + + | Organization | [facility] | | | and [place] | [...] Team Providers + +------+ + | Care Air Conditioning Insulation Installer Name | Role | Phone | + +------+ + | Steff Hightower MD | PCP | | + +------+ + Reason for Referral Evaluate & Treat (Routine) +--------+ + + + + + | Status | Reason | Specialty | Diagnoses / | Referred By | Referred To | | | | | Procedures | Contact | Contact | +--------+ + + + + + | Closed | Specialty | Allergy | Diagnoses | [facility] | [facility] | | | Services | | Seasonal | MD Steff | CLINIC | | | Required | | allergic | [address] | ALLERGY [place] | | | | | rhinitis due | [address] [facility] | IMMUNOLOGY | | | | | to pollen | [place] | [address] | | | | | | [address] | [place] | | | | | | Phone: | [place] | | | | | | [phone] | [address] | | | | | | Fax: | Phone: | | | | | | [phone] | [phone] | | | | | | | Fax: | | | | | | | [phone] | +--------+ + + + + + Reason for Visit + + + | Reason | Comments | + + + | Referral | | + + + Encounter Details +--------+ + + + + | Date | Type | Department | Care Team | Description | +--------+ + + + + | 06/29/ | Telephone | [facility] [place] [facility] | Steff Hightower MD | Referral | | 2019 | | MEDICINE [place] | [address] | | | | | [address] | [place] | | | | | [place] | [address] | | | | | [address] | | | | | | [phone] | | | +--------+ + + + [...] as of this encounter Plan of Treatment + + +--------+ + + | Name | Type | Priori | Associated Diagnoses | Order Schedule | | | | ty | | | + + +--------+ + + | [facility] | Outpatient | Routin | Seasonal allergic | Ordered: 06/29/2019 | | Clinic Allergy | Referral | e | rhinitis due to | | | Asthma Immunology - | | | pollen | | | AMB Referral | | | | | + + +--------+ + + documented as of this encounter Visit Diagnoses + + | Diagnosis | + + | Seasonal allergic rhinitis due to pollen - Primary | + + documented in this encounter"
--- OUTSIDE RECORDS SUMMARY | ~2019-08-28 | XMS | Encounter Summary ---
Demographics + + + | Address | [address] | | | [place] [address] | + + + | Home Phone | | + + + | Preferred Language | Unknown | + + + | Marital Status | | + + + | Amish Affiliation | Unknown | + + + | Race | Unknown | + + + | Ethnic Group | Unknown | + + + Author + + + | Author | [facility] | | | and [place] | + + + | Organization | [facility] | | | and [place] | [...] Team Providers + +------+ + | Care Drive Away Driver Name | Role | Phone | + [...] Question | | 2019 | | MEDICINE [place] | [address] | | | | | [address] | [place] | | | | | [place] | [address] | | | | | [address] | | | | | | [phone] | | | +--------+ + + + [...]
--- OUTSIDE RECORDS SUMMARY | ~2019-08-28 | XMS | Encounter Summary ---
Demographics + + + | Address | [address] | | | [place] [address] | + + + | Home Phone | | + + + | Preferred Language | Unknown | + + + | Marital Status | | + + + | Jainism Affiliation | Unknown | + + + | Race | Unknown | + + + | Ethnic Group | Unknown | + + + Author + + + | Author | [facility] | | | and [place] | + + + | Organization | [facility] | | | and [place] [...] Team Providers + +------+ + | Care Boom Cat Operator Name | Role | Phone | + +------+ + | Steff Hightower MD | PCP | | + +------+ + Reason for Visit + + + | Reason | Comments | + + + | Medication Follow-up | | + + + Encounter Details +--------+ + + + + | Date | Type | Department | Care Team | Description | +--------+ + + + + | 08/09/ | Telephone | [facility] [place] [facility] | AkilThor juddmicheal Bellamy, | Medication Follow-up | | 2019 | | MEDICINE [place] | PharmD [address] | | | | | [address] | [address] [place], | | | | | [place] | [place] [address] | | | | | [address] | [phone] | | | | | [phone] | | | +--------+ + + + [...]
--- OUTSIDE RECORDS SUMMARY | ~2019-08-28 | XMS | Encounter Summary ---
Demographics + + + | Address | [address] | | | [place] [address] | + + + | Home Phone | | + + + | Preferred Language | Unknown | + + + | Marital Status | | + + + | Christian Affiliation | Unknown | + + + | Race | Unknown | + + + | Ethnic Group | Unknown | + + + Author + + + | Author | [facility] | | | and [place] | + + + | Organization | [facility] | | | and [place] [...] Team Providers + +------+ + | Care Automation Qa Tester Name | Role | Phone | + +------+ + | Steff Hightower MD | PCP | | + +------+ + Reason for Visit +---------+ + | Reason | Comments | +---------+ + | Results | | +---------+ + Encounter Details +--------+ + + + + | Date | Type | Department | Care Team | Description | +--------+ + + + + | 08/03/ | Telephone | [facility] [place] [facility] | Steff Hightower MD | Results | | 2019 | | [facility] | [address] | | | | | [address] | [place] | | | | | [place] | [address] | | | | | [address] | | | | | | [phone] | | | +--------+ + + + [...]
--- OUTSIDE RECORDS SUMMARY | ~2019-08-28 | XMS | Encounter Summary ---
Demographics + + + | Address | [address] | | | [place] [address] | + + + | Home Phone | | + + + | Preferred Language | Unknown | + + + | Marital Status | | + + + | Muslim Affiliation | Unknown | + + + | Race | Unknown | + + + | Ethnic Group | Unknown | + + + Author + + + | Author | [facility] | | | and [place] | + + + | Organization | [facility] | | | and [place] [...] Team Providers + +------+ + | Care General Manager Farm Name | Role | Phone | + +------+ + PCP | Unavailable | + +------+ + Reason for Visit +--------+ + | Reason | Comments | +--------+ + | URI | seen at in [place] 4 days ago, given ear drops. pt states | | | its not helping, now both ears are hurting worse and feeling more | | | pressure | +--------+ + Encounter Details +--------+---------+ + + + | Date | Type | Department | Care Team | Description | +--------+---------+ + + + | 06/14/ | Office | [facility] | Venkat Rodas, | Acute non-recurrent | | 2019 | Visit | [facility] | MICROARRAY ANALYST [address] | maxillary sinusitis | | | | CARE [address] | [place], [place] | (Primary Dx); | | | | [address] | [address] | Seasonal allergic | | | | [place], [place] | [phone] | rhinitis due to | | | | [address] | | other allergic | | | | [phone] | | trigger | +--------+---------+ + + + Social History + +-------+ +--------+------+ | Tobacco Use | Types | Packs/Day | Years | Date | | | | | Used | | + +-------+ +--------+------+ | Never Assessed | | | | | + +-------+ +--------+------+ + + + | Sex Assigned at [...] + + + | Blood Pressure | - | - | | + + + + + | Pulse | 60 | 06/14/2019 11:48 AM | | | | | PDT | | + + + + + | Temperature | 36.7 C (98 F) | 06/14/2019 11:48 AM | | | | | PDT | | + + + + + | Respiratory Rate | 18 | 06/14/2019 11:48 AM | | | | | PDT | | + + + + + | Oxygen Saturation | 99% | 06/14/2019 11:48 AM | | | | | PDT | | + + + + + | Inhaled Oxygen | - | - | | | Concentration | | | | + + + + + | Weight | 101.2 kg (223 lb) | 06/14/2019 11:48 AM | | | | | PDT | | + + + + + | Height | 180.3 cm (5' 11") | 06/14/2019 11:48 AM | | | | | PDT | | + + + + + | Body Mass Index | 31.1 | 06/14/2019 11:48 AM | | | | | PDT | | + + + + + documented in this encounter Patient Instructions Patient Instructions Venkat Rodas, MERCEDEZ - 06/14/2019 11:45 AM PDT Acute Sinusitis Acute sinusitis isirritation and swelling of the sinuses. It is usuallycaused by a darius l infection after a common cold. Your doctor can help you find relief. What is acute sinusitis? Sinuses are air-filled spaces in the skull behind the face. They are kept moist and clean b y a lining of mucosa. Things such as pollen, smoke, and chemical fumes can irritate the muco sa. It can then swell up. As a response to irritation, the mucosa makes more mucus and other fluids. Tiny hairlike cilia cover the mucosa. Cilia help carry mucus toward the opening of the sinus. Too much mucus may cause the cilia to stop working. This blocks the sinus opening . A buildup of fluid in the sinuses then causes pain and pressure. It can also encourage ioana teria to grow in the sinuses. Common symptoms of acute sinusitis You may have: Facial sorenesspain Headache Fever Fluid draining in the back of the throat (postnasal drip) Congestion Drainage that is thick and colored, instead of clear Cough Diagnosing acute sinusitis Yourdoctor will ask about your symptoms and health history.He or she will look at your ear, nose, and throat. You usually won't need to have X-rays taken. The doctor may take asample of mucus to check for bacteria. If you havesinusitis that k eeps coming back, you may need imaging tests such asX-rays or CAT scans. This will help yo ur doctorcheck for a structural problem that may be causingthe infection. Treating acute sinusitis Treatment is aimed atunblocking the sinus opening and helping the cilia work again. You m ay need to take antihistamine and decongestant medicine. These can reduce inflammation and d ecrease the amount of fluid your sinuses make. If you have a bacterial infection, you will n eed to takeantibiotic medicine for 10 to 14 days. Take this medicine until it is gone, ozzy n if you feel better. Date Last Reviewed: 07/12/201619991608-6147 [employer]. [address] [place] [address], [place] [address]. All righ ts reserved. This information is not intended as a substitute for professional medical care. Always follow your healthcare professional's instructions. Allergic Rhinitis Allergic rhinitis is an allergic [...] the eyes or mouth Date Last Reviewed: 12/10/201619995809-5879 [employer]. [address] [place] [address]. All righ ts reserved. This information is not intended as a substitute for professional medical care. Always follow your healthcare professional's instructions. documented in this encounter Progress Notes Venkat Rodas ARNP - 06/14/2019 11:45 AM PDT Subjective Patient ID: Mariella Obregon is a 29 y.o. female. Chief Complaint Patient presents with URI seen at in [place] 4 days ago, given ear drops. pt states its not helping, now both ears are hurting worse and feeling more pressure HPI The following elements of the patient's history were reviewed and updated as appropriate. T hey are available elsewhere in the patient record. allergies, current medications, past fam royer history, past medical history, past social history, past surgical history and problem li st Review of Systems Constitutional: Negative for chills and fever. HENT: Positive for congestion, ear pain and postnasal drip. Negative for rhinorrhea and sor e throat. Eyes: Negative for discharge. Respiratory: Negative for cough. Cardiovascular: Negative for chest pain. Gastrointestinal: Negative for diarrhea, nausea and vomiting. Genitourinary: Negative for difficulty urinating. Musculoskeletal: Negative for myalgias. Skin: Negative for rash. Neurological: Negative for headaches. Hematological: Positive for adenopathy. Objective Pulse 60 | Temp 36.7 C (98 F) (Oral) | Resp 18 | Ht 1.803 m (5' 11") | Wt 101.2 kg (223 lb) | LMP 06/09/2019 (Exact Date) | SpO2 99% | ? No | BMI 31.10 kg/m Physical Exam Constitutional: She appears well-developed and well-nourished. No distress. HENT: Head: Normocephalic and atraumatic. Right Ear: External ear and ear canal normal. A middle ear effusion is present. Left Ear: External ear and ear canal normal. A middle ear effusion is present. Nose: Right sinus exhibits maxillary sinus tenderness. Right sinus exhibits no frontal sinu s tenderness. Left sinus exhibits maxillary sinus tenderness. Left sinus exhibits no frontal sinus tenderness. Mouth/Throat: Uvula is midline, oropharynx is clear and moist and mucous membranes are norm al. No tonsillar exudate. Cardiovascular: Normal rate, regular rhythm and normal heart sounds. Pulmonary/Chest: Effort normal and breath sounds normal. Skin: She is not diaphoretic. Psychiatric: She has a normal mood and affect. Her behavior is normal. Judgment and thought content normal. Assessment /Plan Visit Diagnosis and Associated Orders: 1. Acute non-recurrent maxillary sinusitis 2. Seasonal allergic rhinitis due to other allergic trigger SINUSITIS Impression: sinusitis Tx: Doxycycline, nasal rinses, OTC allergy medications (cetirizine, fluticasone) Education: allergy avoidance practices and nasal rinses Complexity: Patient has moderate risk due to Rx medication management New problem to me for this patient Procedures documented in this encounter Plan of Treatment Not on filedocumented as of this encounter Visit Diagnoses + + | Diagnosis | + + | Acute non-recurrent maxillary sinusitis - Primary | + + | Seasonal allergic rhinitis due to other allergic trigger | + + documented in this encounter
--- OUTSIDE RECORDS SUMMARY | ~2019-08-28 | XMS | Encounter Summary ---
Demographics + + + | Address | [address] | | | [place] [address] | + + + | Home Phone | | + + + | Preferred Language | Unknown | + + + | Marital Status | | + + + | Buddhism Affiliation | Unknown | + + + | Race | Unknown | + + + | Ethnic Group | Unknown | + + + Author + + + | Author | [facility] | | | and [place] | + + + | Organization | [facility] | | | and [place] | [...] Team Providers + +------+ + | Care Stitchdown Thread Laster Name | Role | Phone | + [...] + | 07/28/ | Telephone | [facility] | Steff Hightower MD | Records Request; ED | | 2019 | | [facility] [place] | [address] | Follow-up | | | | [address] | [place] | | | | | [place] | [address] | | | | | [address] | | | | | | [phone] | | | +--------+ + + + [...]
--- OUTSIDE RECORDS SUMMARY | ~2019-08-28 | XMS | Encounter Summary ---
Demographics + + + | Address | [address] | | | [place] [address] | + + + | Home Phone | | + + + | Preferred Language | Unknown | + + + | Marital Status | | + + + | Latter Day Affiliation | Unknown | + + + | Race | Unknown | + + + | Ethnic Group | Unknown | + + + Author + + + | Author | [facility] | | | and [place] | + + + | Organization | [facility] | | | and [place] [...] Team Providers + +------+ + | Care Secy Name | Role | Phone | + [...] + + | Closed | Specialty | Otolaryngolog | Diagnoses | Katja, | Poli, | | | Services | y | Seasonal | MD Steff | Aj Linn MD | | | Required | | allergic | [address] | [address] | | | | | rhinitis due | [address] [place] | [address] | | | | | to pollen | [place] | [place] | | | | | | [address] | [address] | | | | | | Phone: | Phone: | | | | | | [phone] | [phone] | | | | | | Fax: | Fax: | | | | | | [phone] | [phone] | +--------+ + + + + + Reason for Visit + + + | Reason | Comments | + + + | Depression | | + + + Encounter Details +--------+---------+ + + + | Date | Type | Department | Care Team | Description | +--------+---------+ + + + | 08/23/ | Office | [facility] | Steff Hightower MD | Generalized anxiety | | 2019 | Visit | [facility] [place] | [address] | disorder (Primary | | | | [address] | [place] | Dx); Seasonal | | | | [place] | [address] | allergic rhinitis | | | | [address] | | due to pollen | | | | [phone] | | | +--------+---------+ + + + [...] + + + | Blood Pressure | 122/84 | 08/23/2019 11:52 AM | | | | | PST | | + + + + + | Pulse | 84 | 08/23/2019 11:52 AM | | | | | PST | | + + + + + | Temperature | 36.8 C (98.2 F) | 08/23/2019 11:52 AM | | | | | PST | | + + + + + | Respiratory Rate | - | - | | + + + + + | Oxygen Saturation | 97% | 08/23/2019 11:52 AM | | | | | PST | | + + + + + | Inhaled Oxygen | - | - | | | Concentration | | | | + + + + + | Weight | 97.3 kg (214 lb 8.1 | 08/23/2019 11:52 AM | | | | oz) | PST | | + + + + + | Height | 180.3 cm (5' 11") | 08/23/2019 11:52 AM | | | | | PST | | + + + + + | Body Mass Index | 29.92 | 08/23/2019 11:52 AM | | | | | PST | | + + + + + documented in this encounter Patient Instructions Patient Instructions Mee Blanc, PIN PULLER - 08/23/2019 11:30 AM PSTFormatting of this no te might be different from the original. Return in about 1 year (around 08/23/2020), or if symptoms worsen or fail to improve, for A nnual Exam.If you have any questions, please call us [phone]. Appointment reminders by text: Do you have an upcoming appointment? Receive a test reminder! Text the word Nativis to [phone] to opt. in and ask our front desk administrator for more information laron bowman your visit [...] cancellation or re-scheduling of your appointme nt. Controlling Allergens: In the Home Even a clean home can be full of allergens, so take a moment to see what you can do to cut down on allergens in each room of your home. Try to avoid things like cigarette smoke and pe rfume. They can irritate your eyes, nose, throat, and lungsand make your allergies worse. Buy an air purifier with a HEPA filter. Look in consumer magazines for recommendations. Avoid vaporizers and humidifiers, since they encourage mold and dust-mite growth. Use shades or vertical blinds instead of horizontal blinds, which collect dust. Replace drapes with curtains that can be washed regularly. Enclose mattresses, box springs, and pillows in allergy-proof casings. Use washable blan kets and quilts. Avoid feather pillows, down comforters, and wool blankets. Avoid dust-catching clutter. Have enclosed places to keep books, toys, and clothes. Keep closet doors closed. Use washable throw rugs wherever possible, or have bare floors. Put filters over forced-air heating vents. Change the filters regularly. Keep your car clean. Vacuum the seats and carpets regularly. If you have air conditionin g, use it instead of opening the windows. Keep rain gutters clean. Remove leaves and debris that can grow mold. Check stored food for spoilage and mold growth. Clean up spills right away. Don't let wet clothing sit and grow mold. And don't hang clothes outside to dry where th ey can collect airborne pollen. Dry clothing immediately in a clothes dryer that's vented to the outside. Install a fan to keep the bathroom well ventilated. Avoid yard work and pulling weeds. These and other outdoor activities increase your exposur e to pollen. If that s not possible, wear a filter mask. When you re done, bathe, wash y our hair, and change your clothes. Date Last Reviewed: 06/12/201619996785-8457 [employer]. [address] [place] [address], [place] [address]. All righ ts reserved. This information is not intended as a substitute for professional medical care. Always follow your healthcare professional's instructions. Treating Anxiety Disorders with Therapy If you have an anxiety disorder, you don t have to suffer anymore. Treatment is available . Therapy (also called counseling) is often a helpful treatment for anxiety disorders. With therapy, a specially trained professional (therapist) helps you face and learn to manage you r anxiety. Therapy can be short-term or long-term depending on your needs. In some cases, me dicine may also be prescribed with therapy. It may take time before you notice how much ther apy is helping, but stick with it. With therapy, you can feel better. Cognitive behavioral therapy (CBT) Cognitive behavioral therapy (CBT) teaches you to manage anxiety. It does this by helping y ou understand how you think and act when you re anxious. Research has shown CBT to be a ve ry effective treatment for anxiety disorders. How CBT is run is almost like a class. It invo lves homework and activities to build skills that teach you to cope with anxiety step by britney p. It can be done in a group or one-on-one, and often takes place for a set number of sessio ns. CBT has two main parts: Cognitive therapyhelps you identify the negative, irrational thoughts that occur with your anxiety. You ll learn to replace these with more positive, realistic thoughts. Behavioral therapyhelps you change how you react to anxiety. You ll learn coping ski lls and methods for relaxing to help you better deal with anxiety. Other forms of therapy Other therapy methods may work better for you than CBT. Or, you may move from CBT to anothe r form of therapy as your treatment needs change. This may mean meeting with a therapist by yourself or in a group. Therapy can also help you work through problems in your life, such a s drug or alcohol dependence, that may be making your anxiety worse. Getting better takes time Therapy will help you feel better and teach you skills to help manage anxiety [facility]. Bu t change doesn t happen right away. It takes a commitment from you. And treatment only wor ks if you learn to face the causes of your anxiety. So, you might feel worse before you feel better. This can sometimes make it hard to stick with it. But remember: Therapy is a very e ffective treatment. The results will be well worth it. Helping yourself If anxiety is wearing you down, here are some things you can do to cope: Check with your doctor and rule out any physical problems that may be causing the anxiet y symptoms. If an anxiety disorder is diagnosed, seek mental healthcare. This is an illness and it c an respond to treatment. Most types of anxiety disorders will respond to talk therapy and me dicine. Educate yourself about anxiety disorders. Keep track of helpful online resources and milligan ks you can use during stressful periods. Try stress management techniques such as meditation. Consider online or in-person support groups. Don t fight your feelings. Anxiety feeds itself. The more you worry about it, the wors e it gets. Instead, try to identify what might have triggered your anxiety. Then try to put this threat in perspective. Keep in mind that you can t control everything about a situation. Change what you can and let the rest take its course. Exercise it s a great way to relieve tension and help your body feel relaxed. Examine your life for stress, and try to find ways to reduce it. Avoid caffeine and nicotine, which can make anxiety symptoms worse. Fight the temptation to turn to alcohol or unprescribed drugs for relief. They only make things worse in the long run. Date Last Reviewed: 10/12/201619997444-8562 [employer]. [address] [place] [address]. All righ ts reserved. This information is not intended as a substitute for professional medical care. Always follow your healthcare professional's instructions. documented in this encounter Progress Notes Steff Hightower MD - 08/23/2019 11:30 AM PST Subjective: Patient ID: Mariella Obregon is a 29 y.o. female. Chief Complaint Patient presents with Depression HPI Patient presents to clinic for follow up on depression and anxiety. Reports that she was seen by Dr. Howard at ENT at [facility] and did not have a goo d experience seeing. "He would not listen to me"... She has been using the netti pot, singular and Zyrtec and would like a referral to an ENT and welder railcar mechanic in [place] Dr. Khoury which we are doing today. Depression/Anxiety: Patient is here for follow-up of Depression and anxiety. She reports that she is feeling better, her anxiety is decreased and she does not need to u se "anxiety medications "she is more relaxed and feeling better on fluoxetine 10 mg a day an d she would like to keep the same dose. Onset: on-going. She has the following depression symptoms: poor diet She denies the following symptoms: anhedonia, depressed mood, difficulty concentrating, fat igue, feelings of worthlessness/guilt, hopelessness, hypersomnia, insomnia, psychomotor elie rdation, suicidal attempt and suicidal thoughts with specific plan She complains of the following anxiety symptoms: feeling nervous, anxious, not able to stop worrying, worrying too much, having trouble relaxing, being restless/hard to sit still, eas royer annoyed or irritable and feeling afraid something bad might happen Symptoms are improving Sleep Disturbance: No Are you currently in counseling: no Treatments Tried: medications Have they been effective: yes Current psychiatric medications Disp Refills Start End FLUoxetine (PROZAC) 10 mg capsule (Taking) 30 capsule 11 08/23/2019 Sig - Route: Take 1 capsule by mouth Daily. May increase to 2 tabs daily after 1 week. - O ral hydrOXYzine hydrochloride (ATARAX) 25 mg tablet (Taking) 60 tablet 0 08/02/2019 Sig - Route: Take 1 tablet by mouth every 6 hours as needed for Anxiety. - Oral PHQ9 SCORE Office Visit from 08/23/2019 in [facility] Office Visit from in [facility] Office Visit from 06/23/[address] [facility] PHQ-9 Total Score (Patient Health Questionnaire) 1 6 4 ANXIETY/STRESS SCORE Office Visit from 08/23/2019 in [facility] Office Visit from in [facility] KAY-7 Score (General Anxiety Disorder) 0 14 Past Medical History: Diagnosis Date Acute non-recurrent [...] frequency: Weekly Comment: rarely Drug use: Never Allergies Allergen Reactions Keflex (Cephalexin) Anaphylaxis Albuterol [...] tablet by mouth Daily. 90 tablet 3 No current facility-administered medications for this visit. Review of Systems Constitutional: Negative for fever and malaise/fatigue. HENT: Negative for congestion, ear discharge, ear pain, sinus pain, sore throat and tinnitu s. Eyes: Negative for blurred vision and pain. [...] palafox s not have insomnia. Objective: BP 122/84 | Pulse 84 | Temp 36.8 C (98.2 F) (Temporal) | Ht 1.803 m (5' 11") | Wt 9 7.3 kg (214 lb 8.1 oz) | LMP 07/28/2019 (Exact Date) | SpO2 97% | No | BMI 29.92 kg/m Physical Exam General Appearance: Alert, cooperative, [...] nodes normal Neurologic: Gait normal Assessment/Plan: 1. Generalized anxiety disorder (Primary) Overview: Started fluoxetine 10 mg mid July 2019 Assessment & Plan: Feeling better and improved, continue same medication fluoxetine 10 mg daily Orders: - FLUoxetine (PROZAC) 10 mg capsule; Take 1 capsule by mouth Daily. May increase to 2 t abs daily after 1 week. Dispense: 30 capsule; Refill: 11 2. Seasonal allergic rhinitis due to pollen Assessment & Plan: New referral placed for Dr.Steven Ashton in [place]. Orders: - ENT, External - AMB Referral The patient was satisfied with the care received and voiced understanding of the issues dis cussed and the plan. Return in about 1 year (around 08/23/2020), or if symptoms worsen or fail to improve, for A nnual Exam. Electronically signed by Steff Hightower MD Portions of this report were transcribed using [employer] voice recognition soft miranda. Although effort was made in correcting the errors; grammatical and sound alike errors may still be present. d ocumented in this encounter Plan of Treatment + + +--------+ + + | Name | Type | Priori | Associated Diagnoses | Order Schedule | | | | ty | | | + + +--------+ + + | ENT, External - AMB | Outpatient | Routin | Seasonal allergic | Ordered: 08/23/2019 | | Referral | Referral | e | rhinitis due to | | | | | | pollen | | + + +--------+ + + documented as of this encounter Visit Diagnoses + + | Diagnosis | + + | Generalized anxiety disorder - Primary | + + | Seasonal allergic rhinitis due to pollen | + + documented in this encounter
--- OUTSIDE RECORDS SUMMARY | ~2019-08-28 | XMS | Encounter Summary ---
Demographics + + + | Address | [address] | | | [place] [address] | + + + | Home Phone | | + + + | Preferred Language | Unknown | + + + | Marital Status | | + + + | Christian Affiliation | Unknown | + + + | Race | Unknown | + + + | Ethnic Group | Unknown | + + + Author + + + | Author | [facility] | | | and [place] | + + + | Organization | [facility] | | [...] Team Providers + +------+ + | Care Log Peeler Name | Role | Phone | + +------+ + | Steff Hightower MD | PCP | | + +------+ + Reason for Visit +--------+ + | Reason | Comments | +--------+ + | Lump | breast bone | +--------+ + Encounter Details +--------+ + + + + | Date | Type | Department | Care Team | Description | +--------+ + + + + | 07/13/ | Telephone | [facility] | Steff Hightower MD | Lump (breast bone) | | 2019 | | MEDIC[facility] [place] | [address] | | | | | [address] | [place] | | | | | [place] | [address] | | | | | [address] | | | | | | [phone] | | | +--------+ + + + [...]
--- OUTSIDE RECORDS SUMMARY | ~2019-08-28 | XMS | Encounter Summary ---
Demographics + + + | Address | [address] | | | [place] [address] | + + + | Home Phone | | + + + | Preferred Language | Unknown | + + + | Marital Status | | + + + | Quaker Affiliation | Unknown | + + + | Race | Unknown | + + + | Ethnic Group | Unknown | + + + Author + + + | Author | [facility] | | | and [place] | + + + | Organization | [facility] | | | and [place] [...] Team Providers + +------+ + | Care Cleaning Handyman Name | Role | Phone | + +------+ + | Steff Hightower MD | PCP | | + +------+ + Reason for Visit + + + | Reason | Comments | + + + | Lab Results | | + + + Encounter Details +--------+ + + + + | Date | Type | Department | Care Team | Description | +--------+ + + + + | 08/03/ | Telephone | [facility] | Steff Hightower MD | Lab Results | | 2019 | | [facility] [place] | [address] | | | | | [address] | [place] | | | | | [place] | [address] | | | | | [address] | | | | | | [phone] | | | +--------+ + + + [...]
--- OUTSIDE RECORDS SUMMARY | ~2019-08-28 | XMS | Clinical Summary ---
Demographics + + + | Address | [address] | | | [place] [address] | + + + | Home Phone | | + + + | Preferred Language | Unknown | + + + | Marital Status | | + + + | Anabaptism Affiliation | Unknown | + + + | Race | Unknown | + + + | Ethnic Group | Unknown | + + + Author + + + | Author | [facility] | | | and [place] | + + + | Organization | [facility] | | | and [place] [...] Team Providers + +------+ + | Care Slurry Tank Operator Name | Role | Phone | [...] | | + + + +---------+------+------+-------+ | montelukast | Take 1 tablet by | 90 | 3 | 06/12 | | Activ | | (SINGULAIR) 10 mg | mouth Daily. | tablet | | 2/20 | | e | | tabletIndications: | | | | 19 | | | | Mild intermittent | | | | | | | | asthma without | | | | | | | | complication, | | | | | | | | Recurrent acute | | | | | | | | serous otitis media | | | | | | | | of both ears | | | | | | | + + + +---------+------+------+-------+ | | Take 1 tablet by | 30 | 0 | 06/12 | | Activ | | cetirizine-psuedoePH | mouth Daily. | tablet | | 2/20 | | e | | EDrine (ZYRTEC-D) | | | | 19 | | | | 5-120 MG per | | | | | | | | tabletIndications: | | | | | | | | Recurrent acute | | | | | | | | serous otitis media | | | | | | | | of both ears | | | | | | | [...] | | + + + +---------+------+------+-------+ | hydrOXYzine | Take 1 tablet by | 60 | 0 | 10/2 | | Activ | | hydrochloride | mouth every 6 hours | tablet | | / | | e | | (ATARAX) 25 mg | as needed for | | | 19 | | | | tabletIndications: | Anxiety. | | | | | | | Generalized anxiety | | | | | | | | disorder | | | | | | | + + + +---------+------+------+-------+ | FLUoxetine | Take 1 capsule by | 30 | 11 | 11/ | | Activ | | (PROZAC) 10 mg | mouth Daily. May | capsule | | /20 | | e | | capsuleIndications: | increase to 2 tabs | | | 19 | | | | Generalized anxiety | daily after 1 week. | | | | | | | disorder | | | | | | | + + + +---------+------+------+-------+ | diphenhydrAMINE | Take 25 mg by mouth | | 0 | | 10/2 | Disco | | (BENADRYL) 25 mg | every 6 hours as | | | | 2/20 | ntinu | | tablet | needed for Itching. | | | | 19 | ed | | | | | | | | (Ther | | | | | | | | apy | | | | | | | | compl | | | | | | | | eted) | + + + +---------+------+------+-------+ | methylPREDNISolone | Take 4 mg by mouth | | 0 | | 10/2 | Disco | | (MEDROL) 4 mg | Daily. | | | | 2/20 | ntinu | | tablet | | | | | 19 | ed | | | | | | | | (Ther | | | | | | | | apy | | | | | | | | compl | | | | | | | | eted) | + + + +---------+------+------+-------+ | | 4 times daily. | | 0 | | 10/2 | Disco | | nrnszfnt-ukgwfttcx-c | | | | | 2/20 | ntinu | | examethasone | | | | | 19 | ed | | (MAXITROL) | | | | | | (Ther | | 3.5-07243-0.1 | | | | | | apy | | ophthalmic ointment | | | | | | compl | | | | | | | | eted) | + + + +---------+------+------+-------+ | FLUoxetine | Take 1 capsule by | 30 | 0 | 07/13 | 08/12 | Disco | | (PROZAC) 10 mg | mouth Daily. May | capsule | | /20 | / | ntinu | | capsuleIndications: | increase to 2 tabs | | | 19 | 19 | ed | | Generalized anxiety | daily after 1 week. | | | | | (Reor | | disorder | | | | | | irving) | + + + +---------+------+------+-------+ Active Problems + + + | Problem | Noted Date | + + + | Generalized anxiety disorder | 08/23/2019 | + + + + + | Overview: Started fluoxetine 10 mg mid July 2019 Last | | Assessment & Plan: Feeling better and improved, continue same | | medication fluoxetine 10 mg daily | + + + + + | Encounter to establish care | 06/23/2019 | + + + + + | Overview: Health Maintenance -Colonoscopy: Not at screening | | age.-Mammogram: Not at screening age.-Dexa Scan: Not at screening | | age.-Pap Smear: done 09/2018 in [place]. Will request | | record. Last Assessment [...] referral placed [place] | | [place] [facility] [place] | + + Encounters +--------+ + + + + | Date | Type | Specialty | Care Team | Description | +--------+ + + + + | 08/23/ | Office | Family Medicine | Steff Hightower MD | Generalized anxiety | | 2018 | Visit | | | disorder (Primary | | | | | | Dx); Seasonal | | | | | | allergic rhinitis | | | | | | due to pollen | +--------+ + + + + | 08/09/ | Telephone | Family Medicine | Kierra Barnard, | Medication Follow-up | 2018 | | | PharmD | | +--------+ + + + + | 08/05/ | Telephone | Family Medicine | Steff Hightower MD | Results | 2018 | | | | | +--------+ + + + + | 08/03/ | Telephone | Family Medicine | Steff Hightower MD | Results | 2018 | | | | | +--------+ + + + + | 08/03/ | Telephone | Family Medicine | Steff Hightower MD | Lab Results | 2018 | | | | | +--------+ + + + + | 08/02/ | Office | Family Medicine | Adilia Cash, | Generalized anxiety | | 2018 | Visit | | ANSWERING SERVICE AGENT | disorder (Primary | | | | | | Dx); Chest mass; | | | | | | Leukocytosis, | | | | | | unspecified type | +--------+ + + + + | 07/28/ | Telephone | Family Medicine | Steff Hightower MD | Records Request; ED | | 2018 | | | | Follow-up | +--------+ + + + + | 07/13/ | Telephone | Family Medicine | Steff Hightower MD | Lump (breast bone) | | 2018 | | | | | +--------+ + + + + | 07/08/ | Telephone | Family Medicine | Steff Hightower MD | Medication Question | | 2018 | | | | | +--------+ + + + + | 06/29/ | Telephone | Family Medicine | Steff Hightower MD | Referral | | 2018 | | | | | +--------+ + + + + | 06/23/ | Office | Family Medicine | Steff Hightower MD | Encounter to | | 2018 | Visit | | | establish care | | | | | | (Primary Dx); Mild | | | | | | intermittent asthma | | | | | | without | | | | | | complication; | | | | | | Recurrent acute | | | | | | serous otitis media | | | | | | of both ears; | | | | | | Seasonal allergic | | | | | | rhinitis due to | | | | | | pollen | +--------+ + + + + | 06/14/ | Office | Urgent Care | Venkat Rodas, | Acute non-recurrent | | 2018 | Visit | | ANSWERING SERVICE AGENT | maxillary sinusitis | | | | | | (Primary Dx); | | | | | | Seasonal allergic | | | | | | rhinitis due to | | | | | | other allergic | | | | | | trigger | +--------+ + + + + from [...] recent travel history available. | + + Last Filed Vital Signs + [...] Health Maintenance | Due Date | Last Done | Comments | + + + + + | Vaccine: | | | | | Pneumococcal 19-64 | 4 | | | | (1 of 1 - PPSV23) | | | | + + + + + | Cervical Cancer | | | | | Screening (Pap) | 8 | | | + + + + + | Vaccine: | | 06/02/2018, 06/19/2014 | | | Dtap/Tdap/Td (3 - | 8 | | | | Td) | | | | + + + + + | Vaccine: Influenza | Completed | 07/25/2019 | | + + + + + Procedures + +--------+ + + + | Procedure Name | Priori | Date/Time | Associated Diagnosis | Comments | | | ty | | | | + +--------+ + + + | IMAGING REPORT - | | 08/05/2019 | | Results for this | | EXTERNAL SCAN | | 12:00 AM | | procedure are in the | | | | PDT | | results section. | + +--------+ + + + | IMAGING REPORT - | | 08/05/2019 | | Results for this | | EXTERNAL SCAN | | 12:00 AM | | procedure are in the | | | | PDT | | results section. | + +--------+ + + + | VITAMIN D, | Routin | 08/02/2019 | Generalized | Results for this | | DEFICIENCY SCREEN | e | 10:29 AM | anxiety disorder | procedure are in the | | (25-HYDROXY) | | PDT | | results section. | + +--------+ + + + | TSH | Routin | 08/02/2019 | Generalized | Results for this | | | e | 10:29 AM | anxiety disorder | procedure are in the | | | | PDT | | results section. | + +--------+ + + + | CBC W/AUTO | Routin | 08/02/2019 | Leukocytosis, | Results for this | | DIFFERENTIAL | e | 10:29 AM | unspecified type | procedure are in the | | | | PDT | | results section. | + +--------+ + + + | LABS - EXTERNAL SCAN | | 06/21/2019 | | Results for this | | | | 12:00 AM | | procedure are in the | | | | PDT | | results section. | + +--------+ + + + from Last 3 Months Results IMAGING REPORT - EXTERNAL SCAN (08/05/2019 12:00 AM PDT)Only the most recent of 2 results w ithin the time period is included. + + + | Narrative | Performed At | + + + | Ordered by an | | | unspecified provider. | | + + + CBC w/ Auto Differential [...] 0.003-0.091 K/uL 0.0-0.9% 2nd 0.007-0.247 K/uL [facility] | | 0.1-2.0% 3rd 0.018-0.456 K/uL 0.1-2.0% | LABORATORY | + + + + + + + + | Performing | Address | City/State/Zipcode | Phone Number | | Organization | | | | + + + + + | [facility] | [address] | [place] | [phone] | | [facility] | | [address] | | | [facility] | | | | + + + + + Vitamin D, Deficiency Screen (25-Hydroxy) (08/02/2019 10:29 AM PDT) + +-------+ + + + | Component | Value | Ref Range | Performed | Pathologist | | | | | At | Signature | + +-------+ + + + | Vitamin D, | 34 | 30 - 100 ng/mL | [facility] | | | 25 Hydroxy | | | [facility] | | | | | | MEDICAL [...] + | [facility] | [address] | [place] | [phone] | | [facility] | | [address] | | | - LABORATORY | | [...] | + + + + + | [facility] | [address] | [place] | [phone] | | [facility] | | [address] | | | [facility] | | | | + + + + + LABS - EXTERNAL SCAN (06/21/2019 12:00 AM PDT) + + + | Narrative | Performed At | + + + | Ordered by an | | | unspecified provider. | | + + + from Last 3 Months Insurance + +--------+ +--------+ [...] +---------+------+ | [facility] | PHP | [id number] | 05/12/20 | [phone] | | PPO | | PLAN | PEBB | | 15-Pre | 5 | | | | | STATEW | | sent | | | | | | JOSE | | | | | | + +--------+ +--------+ +---------+------+ | [facility] | PHP | [id number] | 10/12/19 | [phone] | | PPO | | PLAN | [...] | Self | [birth year] [address] | | | al/Fam | | 1990 | [phone] | [place] [address] | | | royer | | | 4 (Home) | | + +--------+ +--------+ + + | Mariella Obregon | Person | Self | [birth year] | [address] | | | al/Fam | | 1989 | [phone] | [place] [address] | | | royer | | | 4 (Home) | | + +--------+ +--------+ + + Advance Directives + + + + + | Type | Date Recorded | Patient | Explanation | | | | Farmworker Grain | | + + + + + | Power of | | | | | Plating Technician | | | | + + + + + | Advance | | | | | Directive | | | | + + + + +
--- OUTSIDE RECORDS SUMMARY | ~2019-08-28 | XMS | Encounter Summary ---
Demographics + + + | Address | [address] | | | [place] [address] | + + + | Home Phone | | + + + | Preferred Language | Unknown | + + + | Marital Status | | + + + | Pentecostalism Affiliation | Unknown | + + + | Race | Unknown | + + + | Ethnic Group | Unknown | + + + Author + + + | Author | [facility] | | | and [place] | + + + | Organization | [facility] | | | and [place] [...] Team Providers + +------+ + | Care Chicken Cutter Name | Role | Phone | + +------+ + PCP | Unavailable | + +------+ + Reason for Visit +--------+ + | Reason | Comments | +--------+ + | URI | seen at in [place] 4 days ago, given ear drops. 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 Date Last Reviewed: 07/12/201619994950-7231 [employer]. [address] [place] [address], [place] [address]. All righ ts reserved. This information is [...] the eyes or mouth Date Last Reviewed: 12/10/201619992904-2130 [employer]. [address] [place] [address]. All righ ts reserved. This information is not intended as a substitute for professional medical care. Always follow your healthcare professional's instructions. documented in this encounter Progress Notes Venkat Rodas ARNP - 06/14/2019 11:45 AM PDT Subjective Patient ID: Mariella Obregon is a 29 y.o. female. Chief Complaint Patient presents with URI seen at in [place] 4 days ago, given ear drops. pt [...]
--- OUTSIDE RECORDS SUMMARY | ~2019-08-28 | XMS | Clinical Summary ---
Demographics + + + | Address | [address] | | | [place] [address] | + + + | Home Phone | | + + + | Preferred Language | Unknown | + + + | Marital Status | | + + + | Jehovah'S Witness Affiliation | Unknown | + + + | Race | Unknown | + + + | Ethnic Group | Unknown | + + + Author + + + | Author | [facility] | | | and [place] | + + + | Organization | [facility] | | | and [place] | + [...] Team Providers + +------+ + | Care Regulator Operator Name | Role | Phone | [...] | | 10/2 | Disco | | yejjjhgl-sklepxpjv-z | | | | | 2/20 | ntinu | | examethasone | | | | | 19 | ed | | (MAXITROL) | | | | | | (Ther | | 3.5-94943-2.1 | | | | | | apy [...] | | age.-Pap Smear: done 09/2018 in [place]. Will request | | record. Last Assessment [...] [facility] 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 | [place] | [phone] | | [facility] | | [address] | | | - LABORATORY | | [...] + + + | [facility] | [address] | [place] | [phone] | | [facility] | | [address] | | | [facility] | | [...] +---------+------+ | [facility] | PHP | [id number] | 05/12/20 | [phone] | | PPO | | PLAN | PEBB | | 15-Pre | 5 | | | | | STATEW | | sent | | | | | | JOSE | | | | | | + +--------+ +--------+ +---------+------+ | [facility] | PHP | [id number] | 10/12/19 | [phone] | | PPO [...] | 1990 | [phone] | [place] [address] | | | royer | | | 4 (Home) | | + +--------+ +--------+ + + | Mariella Obregon | Person | Self | [birth year] | [address] | | | al/Fam | | 1989 | [phone] | [place] [address] | | | royer | | | 4 (Home) | | + +--------+ +--------+ + + Advance Directives + + + + + | Type | Date Recorded | Patient | Explanation | | | | Core Shaper Sides | | + + + + + | Power of | | | | | Integrated Circuit Fabricator | | | | + + + + + | Advance | | | | | Directive | | | | + + + + +
--- OUTSIDE RECORDS SUMMARY | ~2019-08-28 | XMS | Encounter Summary ---
Demographics + + + | Address | [address] | | | [place] [address] | + + + | Home Phone | | + + + | Preferred Language | Unknown | + + + | Marital Status | | + + + | Scientology Affiliation | Unknown | + + + | Race | Unknown | + + + | Ethnic Group | Unknown | + + + Author + + + | Author | [facility] | | | and [place] | + + + | Organization | [facility] | | | and [place] [...] Team Providers + +------+ + | Care Mc Kay Machine Operator Name | Role | Phone | [...] + + | 08/02/ | Office | [facility] | Adilia Cash, | Generalized anxiety | | 2019 | Visit | [facility] | 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 Phone number for Crisis HelpLine ([phone]) or go to ED for evaluation in the event you become a harm to yourself or anyone else. Crisis text line also available at [id number] Chest Wall Pain: Costochondritis The chest pain [...] by your healthcare provider Date Last Reviewed: 09/11/201619992337-9762 [employer]. [address] [place] [address]. All righ ts reserved. This information is [...] to cope by practicing relaxation and taking Lake Hallie's Wort. Dc'd during . Mood is worsening. On migue days she get out and goes for walks with the boys. works [employer], so sle eps during the day. Sleeping well. Has not tried counseling, willing to consider, moving to [place] in March and wants to start then. Gets short breaks from the boys. No SI/HI. Has not been on medication for mood and would like to try. First day of LMP last week. I have reviewed notes and lab from ED visit where she was seen for allergy symptoms. These have improved. 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 I have reviewed t hat note, CT report showing mucosal thicken and lab results showing normal chem, and normal blood counts with the exception of mildly elevated wbc count. PHQ9 Depression scale: Date of Last Screening Total Score 6 (08/02/19 0900) (Printable questionnaires in [place]) Interpretation of Total Score: 1-4 = Minimal [...] or Chronic Pain tab; printable questionnaires in [place] ) Interpretation of Total Score: 8-9 = [...] has been changed since signin Order Audit [place] desogestrel-ethinyl estradiol (AZURETTE) 0.15-0.02/0.01 MG (21/5) per tablet (Taking) Jordan e 1 tablet by mouth Daily. fluticasone (FLONASE) 50 mcg/nasal spray (Taking) 1 spray by Nasal route Daily. montelukast (SINGULAIR) 10 mg tablet (Taking) Take 1 tablet by mouth Daily. Number of times this order has been changed since signin Order Audit [place] Past Medical History She has a past [...] safety. Provided phone number for Crisis HelpLine ([phone]) and informed to go to [facility] ED for psych evaluation in [...] made to ensure accuracy; however, inadvertent computerized correctional facility psychiatrist errors may be pre sent. documented in [...] + | [facility] | [address] | [place], [place] | [phone] | | [facility] | | [address] | | | - LABORATORY | | [...] + + + | [facility] | [address] | [place] | [phone] | | [facility] | | [address] | | | [facility] | | [...] [address] | [place] | [phone] | | [facility] | | [address] | | | [facility] | | [...]
--- OUTSIDE RECORDS SUMMARY | ~2019-08-28 | XMS | Encounter Summary ---
Demographics + + + | Address | [address] | | | [place] [address] | + + + | Home Phone | | + + + | Preferred Language | Unknown | + + + | Marital Status | | + + + | Religion Affiliation | Unknown | + + + | Race | Unknown | + + + | Ethnic Group | Unknown | + + + Author + + + | Author | [facility] | | | and [place] | + + + | Organization | [facility] | | | and [place] | [...] Team Providers + +------+ + | Care Cement Finisher Name | Role | Phone | [...] Results | | 2019 | | [facility] | [address] | | | | | [address] | [place] | | | | | [place] | [address] | | | | | [address] | | | | | | [phone] | | | +--------+ + + + [...]
--- OUTSIDE RECORDS SUMMARY | ~2019-08-28 | XMS | Encounter Summary ---
Demographics + + + | Address | [address] | | | [place] [address] | + + + | Home Phone | | + + + | Preferred Language | Unknown | + + + | Marital Status | | + + + | Faith Affiliation | Unknown | + + + | Race | Unknown | + + + | Ethnic Group | Unknown | + + + Author + + + | Author | [facility] | | | and [place] | + + + | Organization | [facility] | | | and [place] [...] Team Providers + +------+ + | Care Video Arcade Manager Name | Role | Phone | [...] Results | | 2019 | | [facility] | [address] | | | | | [address] | [place] | | | | | [place] | [address] | | | | | [address] | | | | | | [phone] | | | +--------+ + + + [...]
--- OUTSIDE RECORDS SUMMARY | ~2019-08-28 | XMS | Encounter Summary ---
Demographics + + + | Address | [address] | | | [place] [address] | + + + | Home Phone | | + + + | Preferred Language | Unknown | + + + | Marital Status | | + + + | Religion Affiliation | Unknown | + + + | Race | Unknown | + + + | Ethnic Group | Unknown | + + + Author + + + | Author | [facility] | | | and [place] | + + + | Organization | [facility] | | | [...] Team Providers + +------+ + | Care Pst Specialist Name | Role | Phone | [...] + + | 09/12/ | Office | [facility] | Steff Hightower MD | Encounter to | | 2019 | Visit | [facility] | [address] | establish care | | | | [address] | [place] | (Primary Dx); Mild | | | | [place] | [address] | intermittent asthma | | | | [address] | | without | | | | [phone] | | complication; | | | | [...] encounter Patient Instructions Patient Instructions Mee Blanc, KEG FILLER - 06/23/2019 9:15 AM PDTFormatting of this no te might be different from the original. Return in about 1 year (around 06/23/2020), or if symptoms worsen or fail to improve, for An nual Exam.If you have any questions, please call us [phone]. Appointment reminders by text: Do you have an upcoming appointment? Receive a test reminder! Text the word Paper Battery Company to [phone] to opt. in and ask our front desk monitor for more information laron bowman your visit [...] the eyes or mouth Date Last Reviewed: 12/10/201619990874-6411 The [employer]. [address] [place] [address]. All righ ts reserved. This information is [...] week. Cover mattress and pillows with special gozp-mtdh-aezjdcgnnp. Don t use upholstered furniturelike sofas or [...] spray bottles instead of aerosols. Pour liquid sustainable landscape architect onto a rag or cloth instead of [...] with soap and warm water orusea hand industrial property appraiser containing alco hol. Get a yearly flu [...] Be sure to read the labels on qbjm-uge-mrhdbsa medicines.They may have ingredients hay t cause [...] about these symp toms. Date Last Reviewed: 10/12/201619990447-[address] [employer] [place] [address]. All righ ts reserved. This information is [...] carpeting. Think about buying a home air connie cleaner with a HEPA (high-efficiency particulate air) [...] reptiles don't cause allergies. Date Last Reviewed: 07/12/201619996247-5415 [employer]. [address] [place] [address], [place] [address]. All righ ts reserved. This information is [...] ", she is been see n in [facility] in [place] for sinus infection since and had doxycycline [...] PHQ9 SCORE Office Visit from 06/23/2019 in [facility] [place] PHQ-9 Total Score (Patient Health Questionnaire) 4 [...] tablet by mouth Daily. 90 tablet 3 zgveuedk-xetuhvcnq-nssyjuftsvzyc (MAXITROL) 3.5-68218-4.1 ophthalmic ointment 4 times d aily. No [...] screening age. -Pap Smear: done 09/2018 in [place]. Will request record. Assessment & Plan: Healthy [...] Portions of this report were transcribed using [employer] voice recognition soft miranda. Although effort was [...]
--- OUTSIDE RECORDS SUMMARY | ~2019-08-28 | XMS | Encounter Summary ---
Demographics + + + | Address | [address] | | | [place] [address] | + + + | Home Phone | | + + + | Preferred Language | Unknown | + + + | Marital Status | | + + + | Orthodox Affiliation | Unknown | + + + | Race | Unknown | + + + | Ethnic Group | Unknown | + + + Author + + + | Author | [facility] | | | and [place] | + + + | Organization | [facility] | | | and [place] [...] Team Providers + +------+ + | Care Electricity Trading Analyst Name | Role | Phone | + [...] bone) | | 2019 | | MEDICINE [place] | [address] | | | | | [address] | [place] | | | | | [place] | [address] | | | | | [address] | | | | | | [phone] | | | +--------+ + + + [...]
--- OUTSIDE RECORDS SUMMARY | ~2019-08-28 | XMS | Encounter Summary ---
Demographics + + + | Address | [address] | | | [place] [address] | + + + | Home Phone | | + + + | Preferred Language | Unknown | + + + | Marital Status | | + + + | Congregational Affiliation | Unknown | + + + | Race | Unknown | + + + | Ethnic Group | Unknown | + + + Author + + + | Author | [facility] | | | and [place] | + + + | Organization | [facility] | | | and [place] | [...] Team Providers + +------+ + | Care Advertising Consultant Name | Role | Phone | + [...] [place] | | | | | | [address] | [address] | | | | | | Phone: | Phone: | | | | | | [phone] | [phone] | | | | | | Fax: | Fax: | | | | | | [phone] | [phone] | +--------+ + + + + + Reason for Visit + + + | Reason | Comments | + + + | Depression | | + + + Encounter Details +--------+---------+ + + + | Date | Type | Department | Care Team | Description | +--------+---------+ + + + | 08/23/ | Office | [facility] | Steff Hightower MD | Generalized anxiety | | 2019 | Visit | MEDICINE [place] | [address] | disorder (Primary | | | | [address] | [place] | Dx); Seasonal | | | | [place] | [address] | allergic rhinitis | | | | [address] | | due to pollen | | | | [phone] | | | +--------+---------+ + + + [...] encounter Patient Instructions Patient Instructions Mee Blanc, ATHLETIC AGENT - 08/23/2019 11:30 AM PSTFormatting of this no te might be different from the original. Return in about 1 year (around 08/23/2020), or if symptoms worsen or fail to improve, for A nnual Exam.If you have any questions, please call us [phone]. Appointment reminders by text: Do you have an upcoming appointment? Receive a test reminder! Text the word Se[employer] to [phone] to opt. in and ask our front [...] and change your clothes. Date Last Reviewed: 06/12/201619990086-3436 The [employer]. [address] [place] [address], [place] [address]. All righ ts reserved. This information is [...] teach you skills to help manage anxiety fpc. Bu t change doesn t happen right [...] in the long run. Date Last Reviewed: 10/12/201619995693-[address] [employer] [place] [address]. All righ ts reserved. This information is [...] seen by Dr. Howard at ENT at [facility] and did not have a goo d experience seeing. "He would not listen to me"... She has been using the netti pot, singular and Zyrtec and would like a referral to an ENT and respiratory therapist in [place] Dr. Khoury which we are doing today. [...] PHQ9 SCORE Office Visit from 08/23/2019 in [facility] Office Visit from in [facility] Office Visit from 06/23/2019 in [facility] PHQ-9 Total Score (Patient Health Questionnaire) 1 6 4 ANXIETY/STRESS SCORE Office Visit from 08/23/2019 in [facility] Office Visit from in [facility] KAY-7 Score (General Anxiety [...] New referral placed for Dr.Steven Ashton in [place]. Orders: - ENT, External - AMB Referral The patient was satisfied with the care received and voiced understanding of the issues dis cussed and the plan. Return in about 1 year (around 08/23/2020), or if symptoms worsen or fail to improve, for A nnual Exam. Electronically signed by Steff Hightower MD Portions of this report were transcribed using [employer] voice recognition soft miranda. Although effort was [...]
--- OUTSIDE RECORDS SUMMARY | ~2019-08-28 | XMS | Encounter Summary ---
Demographics + + + | Address | [address] | | | [place] [address] | + + + | Home Phone [...] | Organization | [facility] [...] Team Providers + +------+ + | Care Oracle Applications Developer Name | Role | Phone | + [...] Results | | 2019 | | [facility] | [address] | | | | | [address] | [place] | | | | | [place] | [address] | | | | | [address] | | | | | | [phone] | | | +--------+ + + + [...]
--- OUTSIDE RECORDS SUMMARY | ~2019-08-28 | XMS | Encounter Summary ---
Demographics + + + | Address | [address] | | | [place] [address] | + + + | Home Phone | | + + + | Preferred Language | Unknown | + + + | Marital Status | | + + + | Hindu Affiliation | Unknown | + + + | Race | Unknown | + + + | Ethnic Group | Unknown | + + + Author + + + | Author | [facility] | | | and [place] | + + + | Organization | [facility] | | | and [...] Team Providers + +------+ + | Care Field Representative/Health Education Name | Role | Phone | + [...] | | | | [place] | [place] [address] | | | | | [address] | [phone] | | | | | [phone] | | | +--------+ + + + [...]
--- OUTSIDE RECORDS SUMMARY | ~2019-08-28 | XMS | Encounter Summary ---
Demographics + + + | Address | [address] | | | [place] [address] | + + + | Home Phone [...] Organization | [facility] | | | and [place] [...] Team Providers + +------+ + | Care Scene Shifter Name | Role | Phone | + [...] Results | | 2019 | | MEDICINE [place] | [address] | | | | | [address] | [place] | | | | | [place] | [address] | | | | | [address] | | | | | | [phone] | | | +--------+ + + + [...]
--- OUTSIDE RECORDS SUMMARY | ~2019-08-28 | XMS | Encounter Summary ---
Demographics + + + | Address | [address] | | | [place] [address] | + + + | Home Phone | | + + + | Preferred Language | Unknown | + + + | Marital Status | | + + + | Baptist Affiliation | Unknown | + + + | Race | Unknown | + + + | Ethnic Group | Unknown | + + + Author + + + | Author | [facility] | | | and [place] | + + + | Organization | [facility] | | | and [place] [...] Team Providers + +------+ + | Care Computer Equipment Installer Name | Role | Phone | [...] + + | 08/02/ | Office | [facility] | Adilia Cash, | Generalized anxiety | | 2019 | Visit | MEDICINE [place] | PAPER CLEANER [address] | disorder (Primary | | | | [address] | [place] | Dx); Chest mass; | | | | [place] | [address] | Leukocytosis, | | | | [address] | | unspecified type | | | | [phone] | | | +--------+---------+ + + + [...] ell being. Phone number for Crisis HelpLine ([phone]) or go to ED for evaluation in the event you become a harm to yourself or anyone else. Crisis text line also available at [phone] Chest Wall Pain: Costochondritis The chest pain [...] by your healthcare provider Date Last Reviewed: 09/11/201619998062-7822 The [employer]. [address] [place] [address]. All righ ts reserved. This information is [...] to cope by practicing relaxation and taking [place]'s Wort. Dc'd during . Mood is worsening. On migue days she get out and goes for walks with the boys. works [employer], so sle eps during the day. Sleeping well. Has not tried counseling, willing to consider, moving to [place] in March and wants to start then. Gets short breaks from the boys. No SI/HI. Has not been on medication for mood and would like to try. First day of LMP last week. I have reviewed notes and lab from ED visit where she was seen for allergy symptoms. These have improved. She has referral in place for instrumentation chemist at [facility] in August. I have reviewed t hat note, CT report showing mucosal thicken and lab results showing normal chem, and normal blood counts with the exception of mildly elevated wbc count. PHQ9 Depression scale: Date of Last Screening Total Score 6 (08/02/19 0900) (Printable questionnaires in Iraqi) Interpretation of Total Score: 1-4 = Minimal [...] or Chronic Pain tab; printable questionnaires in Iraqi ) Interpretation of Total Score: 8-9 = [...] has been changed since signin Order Audit [place] desogestrel-ethinyl estradiol (AZURETTE) 0.15-0.02/0.01 MG (21/5) per tablet (Taking) Jordan e 1 tablet by mouth Daily. fluticasone (FLONASE) 50 mcg/nasal spray (Taking) 1 spray by Nasal route Daily. montelukast (SINGULAIR) 10 mg tablet (Taking) Take 1 tablet by mouth Daily. Number of times this order has been changed since signin Order Audit [place] Past Medical History She has a past [...] HelpLine ) and informed to go to [facility] ED for psych evaluation in the event [...] made to ensure accuracy; however, inadvertent computerized sql programmer analyst errors may be pre sent. documented in [...] + | [facility] | [address] | [place], [place] | [phone] | | [facility] | | [address] | | | - LABORATORY | | [...] + + + | [facility] | [address] | [place] | [phone] | | [facility] | | [address] | | | [facility] | | [...] [address] | [place] | [phone] | | [facility] | | [address] | | | [facility] | | [...]
--- OUTSIDE RECORDS SUMMARY | ~2019-08-28 | XMS | Encounter Summary ---
Demographics + + + | Address | [address] | | | [place] [address] | + + + | Home Phone | | + + + | Preferred Language | Unknown | + + + | Marital Status | | + + + | Gnosticist Affiliation | Unknown | + + + | Race | Unknown | + + + | Ethnic Group | Unknown | + + + Author + + + | Author | [facility] | | | and [place] | + + + | Organization | [facility] | [...] Team Providers + +------+ + | Care Frame Bender Name | Role | Phone | + [...] | 2019 | Visit | [facility] | [address] | establish care | | | | [address] | [place] | (Primary Dx); Mild | | | | [place] | [address] | intermittent asthma | | | | [address] | | without | | | | [phone] | | complication; | | | | [...] encounter Patient Instructions Patient Instructions Mee Blanc, CAN INSPECTOR - 06/23/2019 9:15 AM PDTFormatting of this no te might be different from the original. Return in about 1 year (around 06/23/2020), or if symptoms worsen or fail to improve, for An nual Exam.If you have any questions, please call us [phone]. Appointment reminders by text: Do you have an upcoming appointment? Receive a test reminder! Text the word Sl[employer]Batch to [phone] to opt. in and ask our front facer for more information laron bowman your visit [...] the eyes or mouth Date Last Reviewed: 12/10/201619994675-8065 The [employer]. [address] [place] [address]. All righ ts reserved. This information is [...] week. Cover mattress and pillows with special szeg-qcjv-uwmsrchutg. Don t use upholstered furniturelike sofas or [...] spray bottles instead of aerosols. Pour liquid surgeon's assistant onto a rag or cloth instead of [...] with soap and warm water orusea hand software quality automation engineer containing alco hol. Get a yearly flu [...] Be sure to read the labels on yiqt-rle-tpettph medicines.They may have ingredients hay t cause [...] about these symp toms. Date Last Reviewed: 10/12/201619992296-[address] [employer] [place] [address]. All righ ts reserved. This information is [...] carpeting. Think about buying a home air truck car and bus cleaner with a HEPA (high-efficiency particulate air) [...] reptiles don't cause allergies. Date Last Reviewed: 07/12/201619992191-4650 The [employer]. [address] [place] [address], [place] [address]. All righ ts reserved. This information is [...] ", she is been see n in [facility] in [place] for sinus infection since and had doxycycline [...] PHQ9 SCORE Office Visit from 06/23/2019 in [facility] [place] PHQ-9 Total Score (Patient Health Questionnaire) 4 [...] tablet by mouth Daily. 90 tablet 3 ntmzikfd-zjqptcgvz-rvxwikpxfbhmg (MAXITROL) 3.5-18849-7.1 ophthalmic ointment 4 times d aily. No [...] screening age. -Pap Smear: done 09/2018 in [place]. Will request record. Assessment & Plan: Healthy [...] Portions of this report were transcribed using [employer] voice recognition soft miranda. Although effort was [...]
--- OUTSIDE RECORDS SUMMARY | ~2019-08-28 | XMS | Encounter Summary ---
Demographics + + + | Address | [address] | | | [place] [address] | + + + | Home Phone [...] | Organization | [facility] | | | and [place] [...] Team Providers + +------+ + | Care Cruller Maker Machine Name | Role | Phone | + [...] [place] | | | | | | [address] | [address] [place] | | | | | | Phone: | [place] | | | | | | [phone] | [address] | | | | | | Fax: | Phone: | | | | | | [phone] | [phone] | | | | | | | Fax: | | | | | | | [phone] | +--------+ + + + + + Reason for Visit + + + | Reason | Comments | + + + | Referral | | + + + Encounter Details +--------+ + + + + | Date | Type | Department | Care Team | Description | +--------+ + + + + | 06/29/ | Telephone | [facility] [place] [facility] | Steff Hightower MD | Referral | | 2019 | | MEDICINE [place] | [address] | | | | | [address] | [place] | | | | | [place] | [address] | | | | | [address] | | | | | | [phone] | | | +--------+ + + + [...]
[~2019-08-28 15:48] MED LIST changes: +AZURETTE 28 DA1 EACH PO; +FLUOXETINE HCL10 MG PO; +MONTELUKAST SOD10 MG PO; +ZYRTEC-D TABLE1 EACH PO
--- OUTSIDE RECORDS SUMMARY | 2019-08-28 15:50 | XMS ---
PreManage Notification: DEON ESCOTO Security Felled Seam Operator Chainstitch Events No recent Security Events currently on file CRITERIA MET - [facility] - 2 Visits in 30 Days CARE PROVIDERS AARON GAMINO [facility] Current PHONE: Unknown Wilder has no Care Guidelines for this patient. EKimberly VISIT COUNT (12 MO.) 3 [facility] TOTAL 3 NOTE: Visits indicate total known visits. ED/UCC VISIT TRACKING (12 MO.) 08/28/2019 15:49 [facility] [place] TYPE: Emergency COMPLAINT: - POSSIBLE MED REACTION 08/26/2019 22:24 [facility] [place] TYPE: Emergency COMPLAINT: - SWOLLEN THROAT/ALLERGIES 06/21/2019 17:38 [facility] [place] TYPE: Emergency COMPLAINT: - SOB DIAGNOSES: - Allergy status to other antibiotic agents status - Acute upper respiratory infection, unspecified - Other fpc (current) drug therapy - Nasal congestion INPATIENT VISIT TRACKING (12 MO.) No inpatient visits to display in this time frame [email or web address]
[2019-08-28] MEDS ORDERED: HYDROXYZINE HCL25 MG PO (16:01)
== END 2019-08-28 17:00 | disposition home or self-care (01) ==
LOC: ED 15:48
DX: R42 Dizziness and giddiness (principal); T38.0X5A Adverse effect of glucocorticoids and synthetic analogues, initial encounter; Z87.891 Personal history of nicotine dependence; Z88.1 Allergy status to other antibiotic agents; F32.9 Major depressive disorder, single episode, unspecified; Z79.899 Other long term (current) drug therapy
CPT/HCPCS: 99283

== ENCOUNTER 2020-04-04 10:41 | Emergency (ER) | payer OTHER ==
[~2020-04-04] VITALS: Ht 175.3 cm; Wt 97.1 kg
[~2020-04-04 10:41] MED LIST changes: +HYDROXYZINE HCL25 MG PO
[2020-04-04] MEDS ORDERED: SUDAFED 12 HOU120 MG PO (11:49)
[2020-04-04] MEDS ORDERED: EXCEDRIN MIGRA1 EAC2 PO (11:50)
== END 2020-04-04 12:00 | disposition home or self-care (01) ==
LOC: ED 10:41
DX: H53.9 Unspecified visual disturbance (principal); F32.9 Major depressive disorder, single episode, unspecified; F41.9 Anxiety disorder, unspecified; Z88.1 Allergy status to other antibiotic agents; Z79.899 Other long term (current) drug therapy
CPT/HCPCS: 99283

== ENCOUNTER 2020-05-09 17:59 | Emergency (ER) | payer OTHER ==
[~2020-05-09] VITALS: Ht 175.3 cm; Wt 97.1 kg
--- OUTSIDE RECORDS SUMMARY | ~2020-05-09 | XMS | Encounter Summary ---
Demographics + + + | Address | [address] | | | [place] [address] | + + + | Home Phone | | + + + | Preferred Language | Unknown | + + + | Marital Status | | + + + | Hinduism Affiliation | Unknown | + + + | Race | Unknown | + + + | Ethnic Group | Unknown | + + + Author + + + | Author | [facility] | | | and [place] | + + + | Organization | [facility] | | | and [place] | [...] Team Providers + +------+ + | Care Cable Assembler Name | Role | Phone | + +------+ + | Steff Hightower MD | PCP | | + +------+ + Reason for Visit + +--------+ + | Reason | Onset | Comments | | | Date | | + +--------+ + | Lab Results | 09/13/ | | | | 2018 | | + +--------+ + Encounter Details +--------+ + + + + | Date | Type | Department | Care Team | Description | +--------+ + + + + | 09/13/ | Telephone | [facility] | Steff Hightower MD | Lab Results | | 2019 | | MEDICINE [place] | [address] | | | | | [address] | [place] | | | | | [place] | [address] | | | | | [address] | | | | | | [phone] | | | +--------+ + + + [...] +---------+ + | Yes | | | rarely | + + +---------+ + + + [...] on file | | + + + documented as of this encounter Miscellaneous Notes Telephone Encounter - Yudith Zamarripa Bore Mill Operator For Plastic - 09/13/2019 5:11 PM PSTSpoke with patient regarding message, informed them of their normal lab results. Patient stated un derstanding and had no further questions. Patient is wanting to schedule a f/u to discuss her continued symptoms and normal labs. Pat ient was scheduled for 09/22/2019 at 0700. elephone Encounter - Yudith Zamarripa Medical Assi stant - 09/13/2019 5:08 PM PST----- Message from Steff Hightower MD sent at 09/13/2019 4:08 PM PST ----- Please notify patient: Test results are back normal, with no diabetes or hypoglycemia, than k you Tdocumented in this encounter Plan of Treatment Not on filedocumented as of this encounter Visit Diagnoses Not on filedocumented in this encounter"
--- OUTSIDE RECORDS SUMMARY | ~2020-05-09 | XMS | Encounter Summary ---
Demographics + + + | Address | [address] | | | [place] [address] | + + + | Home Phone | | + + + | Preferred Language | Unknown | + + + | Marital Status | | + + + | Episcopal Affiliation | Unknown | + + + | Race | Unknown | + + + | Ethnic Group | Unknown | + + + Author + + + | Author | [facility] | | | and [place] | + + + | Organization | [facility] | | | and [...] Team Providers + +------+ + | Care Rolling Chair Pusher Name | Role | Phone | + +------+ + | Steff Hightower MD | PCP | | + +------+ + Encounter Details +--------+ + + + + | Date | Type | Department | Care Team | Description | +--------+ + + + + | 09/28/ | Abstract | [facility] | Steff Hightower MD | | | 2019 | | MEDICINE [place] | [address] | | | | | [address] | [place] | | | | | [place] | [id number] | | | | | [address] | | | | | | [phone] | | | +--------+ + + + [...] | + +--------+ + + + | EXTERNAL LAB: | Routin | 09/16/2019 | | Results for this | | FERRITIN | e | | | procedure are in the | | | | | | results section. | + +--------+ + + + | EXTERNAL LAB: [facility] | Routin | 09/16/2019 | | Results for this | | | e | | | procedure are in the | | | | | | results section. | + +--------+ + + + | CBC WITH | Routin | 09/16/2019 | | Results for this | | DIFFERENTIAL | e | | | procedure are in the | | | | | | results section. | + +--------+ + + + documented in this encounter Results CBC with Differential (09/16/2019) + +-------+ + + + | Component | Value | Ref Range | Performed | Pathologist | | | | | At | Signature | + +-------+ + + + | MCH | 29.0 | 27.0 - 33.0 pg | | | + +-------+ + + + | MCHC | 33.0 | 30.0 - 36.0 | | | | | | g/dL | | | + +-------+ + + + | % Basophils | 0.7 | 0.0 - 2.0 % | | | + +-------+ + + + + + | Specimen | + + | Blood | + + External Lab: CBC (09/16/2019) + +-------+ + + + | Component | Value | Ref Range | Performed | Pathologist | | | | | At | Signature | + +-------+ + + + | WBC, | 9.2 | 4.5 - 11 | | | | External | | | | | + +-------+ + + + | HGB, | 13.1 | 12 - 16 | | | | External | | | | | + +-------+ + + + | HCT, | 39.8 | 35 - 45 | | | | External | | | | | + +-------+ + + + | PLT, | 316 | 140 - 440 | | | | External | | | | | + +-------+ + + + | Neutrophils | 56.2 | 39 - 80 | | | | %, | | | | | | External | | | | | + +-------+ + + + | Lymphocytes | 36.4 | 24 - 44 | | | | %, | | | | | | External | | | | | + +-------+ + + + | Monocytes | 5.8 | 0 - 12 | | | | %, External | | | | | + +-------+ + + + | Eosinophils | 0.9 | 0 - 6 | | | | %, | | | | | | External | | | | | + +-------+ + + + | RBC, | 4.58 | 3.8 - 5.1 | | | | External | | | | | + +-------+ + + + | MCV, | 87 | 81 - 99 | | | | External | | | | | + +-------+ + + + | RDW, | 13.2 | 10.5 - 15 | | | | External | | | | | + +-------+ + + + External Lab: Ferritin (09/16/2019) + +-------+ + + + | Component | Value | Ref Range | Performed | Pathologist | | | | | At | Signature | + +-------+ + + + | Ferritin, | 50.71 | 13 - 150 | | | | External | | | | | + +-------+ + + + documented in this encounter Visit Diagnoses Not on filedocumented in this encounter"
--- OUTSIDE RECORDS SUMMARY | ~2020-05-09 | XMS | Encounter Summary ---
Demographics + + + | Address | [address] | | | [place] [address] | + + + | Home Phone | | + + + | Preferred Language | Unknown | + + + | Marital Status | | + + + | Oriental Orthodox Affiliation | Unknown | + + + | Race | Unknown | + + + | Ethnic Group | Unknown | + + + Author + + + | Author | [facility] | | | and [place] | + + + | Organization | [facility] | | | and [place] [...] Team Providers + +------+ + | Care Choirmaster Name | Role | Phone | + +------+ + | Steff Hightower MD | PCP | | + +------+ + Reason for Visit + +--------+ + | Reason | Onset | Comments | | | Date | | + +--------+ + | Medication Question | 07/08/ | | | | 2019 | | + +--------+ + Encounter Details +--------+ + + + + | Date | Type | Department | Care Team | Description | +--------+ + + + + | 07/08/ | Telephone | [facility] | Steff Hightower MD | Medication Question | | 2019 | | MEDICINE [place] | [address] | | | | | [address] | [place] | | | | | [place], [place] | [address] | | | | | [address] | | | | | | [phone] | | | +--------+ + + + [...] this encounter Miscellaneous Notes Telephone Encounter - Marlen Carter RN - 07/08/2019 11:15 AM PDTPatient is calling f or a refill of her Zyrtec D. States that Dr Hightower wants her to stay on it until she sees [facility] senior wind turbine technician. Her appointment with the senior wind turbine technician is not until 08/22/19. This was last prescribed 06/23 with a 30 day supply. Too soon to refill at this time. She states she does still have enough to last until then. She will call the pharmacy a few days before she runs out to request a refill. elephone Encount er - Lavonne Nunes RN - 07/08/2019 8:44 AM PDTCan we please find out exactly what efrain huang is needing refilled and when she will need a refill? elephone Encounter - Luci Davies - 07/08/2019 8:3 5 AM PDTPatient is calling in because she is not going to be able to get an appointment with the senior wind turbine technician until August would like to know if she will be able to get medications refi lled until then. Please Advise documented in this encounter Plan of Treatment Not on filedocumented as of this encounter Visit Diagnoses Not on filedocumented in this encounter"
--- OUTSIDE RECORDS SUMMARY | ~2020-05-09 | XMS | Encounter Summary ---
Demographics + + + | Address | [address] | | | [place] [address] | + + + | Home Phone | | + + + | Preferred Language | Unknown | + + + | Marital Status | | + + + | Restoration Affiliation | Unknown | + + + | Race | Unknown | + + + | Ethnic Group | Unknown | + + + Author + + + | Author | [facility] | | | and [place] | + + + | Organization | [facility] | | | and [place] [...] Team Providers + +------+ + | Care Ore Bridge Operator Name | Role | Phone | + +------+ + | Steff Hightower MD | PCP | | + +------+ + Reason for Visit + +--------+ + | Reason | Onset | Comments | | | Date | | + +--------+ + | Medication Orders | 09/21/ | | | | 2019 | | + +--------+ + Encounter Details +--------+ + + + + | Date | Type | Department | Care Team | Description | +--------+ + + + + | 09/21/ | Telephone | [facility] | Steff Hightower MD | Medication Orders | | 2019 | | MEDICINE [place] | [address] | | | | | [address] | [place] | | | | | [place] | [address] | | | | | [address] | | | | | | [phone] | | | +--------+ + + + [...] this encounter Miscellaneous Notes Telephone Encounter - Lavonne Nunes RN - 09/22/2019 4:59 PM PSTPatient called back, relayed results. Patient verbalized understanding. elephone Mee Beltre CMA - 09/22/2019 4:37 PM PSTCalled and left a voice message on [employer] for the patient to call our office and get results. elephone Encounter - Steff Hightower MD - 4:08 PM PSTPlease notify patient that it would be recommended that she takes vitam in D3 2000 units daily to improve vertigo symptoms as well as through the winter for mood st abilization also. Thank you P M PSTdocumented in this encounter Plan of Treatment Not on filedocumented as of this encounter Visit Diagnoses Not on filedocumented in this encounter"
--- OUTSIDE RECORDS SUMMARY | ~2020-05-09 | XMS | Encounter Summary ---
Demographics + + + | Address | [address] | | | [place] [address] | + + + | Home Phone | | + + + | Preferred Language | Unknown | + + + | Marital Status | | + + + | Mu-Ism Affiliation | Unknown | + + + | Race | Unknown | + + + | Ethnic Group | Unknown | + + + Author + + + | Author | [facility] | | | and [place] | + + + | Organization | [facility] | | | and [...] Team Providers + +------+ + | Care Deputy Fire Marshal Name | Role | Phone | + [...] [place] | | | | | | [address] | [address] [place] | | | | | | Phone: | [place] | | | | | | [phone] | [address] | | | | | | Fax: | Phone: | | | | | | [phone] | [phone] | | | | | | | Fax: | | | | | | | [phone] | +--------+ + + + + + Reason for Visit + +--------+ + | Reason | Onset | Comments | | | Date | | + +--------+ + | Referral | 06/29/ | | | | 2018 | | + +--------+ + Encounter Details +--------+ + + + + | Date | Type | Department | Care Team | Description | +--------+ + + + + | 06/29/ | Telephone | [facility] | Steff Hightower MD | Referral | | 2019 | | [place] | [address] | | | | | [address] | [place] | | | | | [place] | [address] | | | | | [address] | | | | | | [phone] | | | +--------+ + + + [...] Telephone Encounter - Lavonne Nunes RN - 06/29/2019 1:18 PM PDTReferral pended. Elec tronically signed by Lavonne Nunes RN at 06/29/2019 1:22 PM PDTTelephone Encounter - Mary Jo Ortiz - 06/29/2019 12:36 PM PDTPatient is calling and requesting a referral for an geothermal powerplant mechanic. Referred to providers name (last/first) and/or clinic name: [facility] geothermal powerplant mechanic Referred to providers phone number: [phone] Referred to providers fax number: unknown Reason for referral request: unknown allergies triggering her asthma Is this a retro request? no If yes, date of service (DOS): Diagnosis & CPT codes if applicable: Insurance coverage that referral authorization will be obtained from: [facility] Additional comments: Patient called and stated Dr. Hightower had told her she would send her t o an geothermal powerplant mechanic if needed and something keeps triggering her asthma/allergies and is wanting to be seen now. Please call patient to advise, . (Please copy above information and enter into the referral comments) documented in this enc ounter Plan of Treatment + + +--------+ + [...]
--- OUTSIDE RECORDS SUMMARY | ~2020-05-09 | XMS | Encounter Summary ---
Demographics + + + | Address | [address] | | | [place] [address] | + + + | Home Phone | | + + + | Preferred Language | Unknown | + + + | Marital Status | | + + + | Yazidi Affiliation | Unknown | + + + | Race | Unknown | + + + | Ethnic Group | Unknown | + + + Author + + + | Author | [facility] | | | and [place] | + + + | Organization | [facility] | | | and [...] Team Providers + +------+ + | Care Brewing Technician Name | Role | Phone | + +------+ + | Steff Hightower MD | PCP | | + +------+ + Reason for Visit + +--------+ + | Reason | Onset | Comments | | | Date | | + +--------+ + | Medication Follow-up | 08/09/ | | | | 2019 | | + +--------+ + Encounter Details +--------+ + + + + | Date | Type | Department | Care Team | Description | +--------+ + + + + | 08/09/ | Telephone | [facility] [place] [facility] | Kierra Barnard, | Medication Follow-up | | 2019 | | MEDICINE [place] | PharmD [address] | | | | | [address] | [address] [place], | | | | | [place] | [place] [address] | | | | | [address] | [phone] | | | | | [phone] | | | +--------+ + + + [...] this encounter Miscellaneous Notes Telephone Encounter - Kierra Barnard, PharmD - 08/10/2019 9:29 AM PDTFormatting of this matt rasmussen might be different from the original. Called patient to follow up on fluoxetine and hydroxyzine. She hasn't needed to take hydrox yzine yet because her anxiety hasn't "gotten bad enough." She has been taking fluoxetine 10 mg daily. She has not felt the need to increase to two capsules at this time. Patient states that mood has been improved. She says her anxiety is doing a lot better. S he is happy with how things are at this time. Thoughts of hurting self/others? NO Patient reports the following adverse effects: NONE She is seeing the community service manager 08/22/19. Patient scheduled for follow up on 08/23/19, but encouraged to call sooner with any questi ons/concerns and to call right away if mood worsens. She requests the 09/15/19 appointment khushbu felix Weskatelynnsarah be cancelled as this was a mistake. She already has follow up with PCP in [facility] Future Appointments Date Time Provider Department [place] 08/23/2019 11:30 Steff Hightower MD [facility] 09/15/2019 14:15 MERCEDEZ Ramos [facility] elephone Encounter - Lashay Das - 08/09/2019 12:21 PM PDTPatient returned call stated she will be home rod und 3-330pm today. Her cell service is sketchy as she is out cutting [employer] at the moment. Ple ase try her again later. el ephone Encounter - Kierra Barnard PharmD - 08/09/2019 10:17 AM PDTNallely Wolff to follow up on fluoxetine and hydroxyzine for anxiety. No answer, left message requesting call back a t [phone]. elephone Encounter - Kierra Barnard PharmD - 08/09/2019 10:16 AM PDT----- Message from MERCEDEZ Ramos sen t at 08/02/2019 20:08 PDT ----- Please see how she is tolerating new starts of fluoxetine and hydroxyzine in ~ 1 week. Than k you. documented in this encounter Plan of Treatment Not on filedocumented as of this encounter Visit Diagnoses Not on filedocumented in this encounter
--- OUTSIDE RECORDS SUMMARY | ~2020-05-09 | XMS | Encounter Summary ---
Demographics + + + | Address | [address] | | | [place] [address] | + + + | Home Phone | | + + + | Preferred Language | Unknown | + + + | Marital Status | | + + + | Rastafari Affiliation | Unknown | + + + | Race | Unknown | + + + | Ethnic Group | Unknown | + + + Author + + + | Author | [facility] | | | and [place] | + + + | Organization | [facility] | | | and [place] | [...] Team Providers + +------+ + | Care Professor Of Journalism Name | Role | Phone | + +------+ + | Steff Hightower MD | PCP | | + +------+ + Reason for Visit + +--------+ + | Reason | Onset | Comments | | | Date | | + +--------+ + | Lab Results | 08/03/ | | | | 2018 | | + +--------+ + Encounter Details +--------+ + + + + | Date | Type | Department | Care Team | Description | +--------+ + + + + | 08/03/ | Telephone | [facility] | Steff Hightower MD | Lab Results | | 2019 | | MEDICINE [place] | [address] | | | | | [address] | [place] | | | | | [place] | [address] | | | | | [address] | | | | | | [phone] | | | +--------+ + + + [...] Telephone Encounter - Lavonne Nunes RN - 08/03/2019 10:58 AM PDTThis has been address ed in another encounter. elephone Encounter - Mary Jo Paris - 08/03/2019 7:50 AM PDTPatient called deja engel to speak with the nurse. Patient stated she was supposed to get a call back yesterday re garding some lab results that were done yesterday. Please call patient to advise, [phone]. documented in this encounter Plan of Treatment Not on filedocumented as of this encounter Visit Diagnoses Not on filedocumented in this encounter"
--- OUTSIDE RECORDS SUMMARY | ~2020-05-09 | XMS | Encounter Summary ---
Demographics + + + | Address | [address] | | | [place] [address] | + + + | Home Phone | | + + + | Preferred Language | Unknown | + + + | Marital Status | | + + + | Uatsdin Affiliation | Unknown | + + + | Race | Unknown | + + + | Ethnic Group | Unknown | + + + Author + + + | Author | [facility] | | | and [place] | + + + | Organization | [facility] | | | and [place] [...] Team Providers + +------+ + | Care Invoice Clerk Name | Role | Phone | + +------+ + | Steff Hightower MD | PCP | | + +------+ + Reason for Visit + + + | Reason | Comments | + + + | Medication Refill | | + + + Encounter Details +--------+--------+ + + + | Date | Type | Department | Care Team | Description | +--------+--------+ + + + | 09/01/ | Refill | [facility] [place] [facility] | Shailesh Adilia, | Medication Refill | | 2019 | | MEDICINE [place] | E M ASSEMBLER [address] | | | | | [address] | [place] | | | | | [place] | [address] | | | | | [address] | | | | | | [phone] | | | +--------+--------+ + + + Social History + +-------+ [...]
--- OUTSIDE RECORDS SUMMARY | ~2020-05-09 | XMS | Encounter Summary ---
Demographics + + + | Address | [address] | | | [place] [address] | + + + | Home Phone | | + + + | Preferred Language | Unknown | + + + | Marital Status | | + + + | Bahai Affiliation | Unknown | + + + | Race | Unknown | + + + | Ethnic Group | Unknown | + + + Author + + + | Author | Located Within [facility] | | | and [place] | + + + | Organization | Located Within [facility] | | | and [place] [...] Team Providers + +------+ + | Care Recreation Therapy Aides Teacher Name | Role | Phone | + +------+ + | Steff Hightower MD | PCP | | + +------+ + Reason for Visit + + + | Reason | Comments | + + + | Dizziness | | + + + | Nausea | | + + + | Tingling | | + + + | Weakness | leg muscles | + + + Encounter Details +--------+---------+ + + + | Date | Type | Department | Care Team | Description | +--------+---------+ + + + | 09/01/ | Office | [facility] | Steff Hightower MD | 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[facility] [place] | [address] | psychosis with | | | | [address] | [place] | complication (HCC) | | | | [place] | [address] | (Primary Dx) | | | | [address] | | | | | | [phone] | | | +--------+---------+ + + + Social History [...] + + + | Blood Pressure | 120/76 | 09/01/2019 11:40 AM | | | | | PST | | + + + + + | Pulse | 98 | 09/01/2019 11:40 AM | | | | | PST | | + + + + + | Temperature | 36.7 C (98.1 F) | 09/01/2019 11:40 AM | | | | | PST | | + + + + + | Respiratory Rate | - | - | | + + + + + | Oxygen Saturation | 96% | 09/01/2019 11:40 AM | | | | | PST | | + + + + + | Inhaled Oxygen | - | - | | | Concentration | | | | + + + + + | Weight | 95.7 kg (210 lb 15.7 | 09/01/2019 11:40 AM | | | | oz) | PST | | + + + + + | Height | - | - | | + + + + + | Body Mass Index | 29.43 | 08/23/2019 11:52 AM | | | | | PST | | + + + + + documented in this encounter Patient Instructions Patient Instructions Yudith Zamarripa, Adult Nurse Practitioner - 09/01/2019 11:15 AM PSTReturn if symptoms worsen or fail to improve. If you have any questions, please call us [phone]. Appointment reminders by text: Do you have an upcoming appointment? Receive a test reminder! Text the word Availendar to [phone] to opt. in and ask our front end developer designer for more information laron bowman your visit [...] cancellation or re-scheduling of your appointme nt. documented in this encounter Progress Notes Siddharth Kay, PT - 09/01/2019 11:15 AM PSTIncident To Therapy Treatment Note Date: 09/01/2019 Total Time: 9 minutes Subjective: Patient presents to clinic for a "medication reaction". She was seen yesterday 08/31/2019. ipit from yesterdays note: "She was seen in the [facility], [place] ED on 08/26/2019 for breathing difficulty. She was given liquidoral solutionDexamethasone 10ml. She reports since she t ook this medication she has been feeling, fatigued, dizzy nauseated, muscle weakness, and ti ngling of her face.She reports her symptoms have been the same since they started on morning.She reports her apeitate has been off and on". Since yesterday she reports the dizziness is gone since she was seen in physical therapy. I an PT worked on her vestibular therapy. She reports her nausea had resolved yesterday and returned this morning (her ENT found evid ence of GERD on her vocal cords, need to obtain records from Dr. Ashton, [facility], [place]) and has st arted the Omeprazole 20 mg. She was able to have a few bites of breakfast then began to have nausea. She has not starte d to take the zofran at this time and encouraged to do so. Her weakness had "imiproved a 1,000 times" but still having it a little bit, she is now abl e to carry her child. She feels like she has improved from yesterday. She reports he continues to feel "fogginess in her head". She feels she is having problems focusing. Also, tingling remains only on the posterior RLE, lower leg/calf. It resolved the "all over" tingling. Objective: Pertinent objective findings include: Left Allen Halpike=negative Treatment today consisted of: Neuro-Muscular Re-Education -Instructed in habituation exercises to decrease sensitivity to motion: -Sit <--> supine -head turns -bending over to picker tender helper objects Patient reports significant improvement in symptoms with progressive increase in speed of h ead movements Education: Patient instructed in director long term care management techniques with self Ann and habitu ation exercises to decrease symptoms if vertigo returns Signs and symptoms consistent with: acute perceptual dizziness Plan: Considerations for follow up: -continue at home with recommendations from visit Electronically signed by: Siddharth Kay PT, 09/01/2019 3:41 PM Patient Name: Mariella Obregon/: 1990/ Steff Engle MD - 1 11/01/2018 11:15 AM PST Subjective: Patient ID: Mariella Obregon is a 29 y.o. female. Chief Complaint Patient presents with Dizziness Nausea Tingling Weakness leg muscles HPI Patient presents to clinic for a "medication reaction". She was seen yesterday 08/31/2019. Snipit from yesterdays note: "She was seen in the [facility] [place] ED on 08/26/2019 for breathing difficulty. She was given liquidoral solutionDexamethasone 10ml. She reports since she t ook this medication she has been feeling, fatigued, dizzy nauseated, muscle weakness, and ti ngling of her face.She reports her symptoms have been the same since they started on morning.She reports her apeitate has been off and on". Since yesterday she reports the dizziness is gone since she was seen in physical therapy. I an PT worked on her vestibular therapy. She reports her nausea had resolved yesterday and returned this morning (her ENT found evid ence of GERD on her vocal cords, need to obtain records from [facility]) and has st arted the Omeprazole 20 mg. She was able to have a few bites of breakfast then began to have nausea. She has not starte d to take the zofran at this time and encouraged to do so. Her weakness had "imiproved a 1,000 times" but still having it a little bit, she is now abl e to carry her child. She feels like she has improved from yesterday. She reports he continues to feel "fogginess in her head". She feels she is having problems focusing. Also, tingling remains only on the posterior RLE, lower leg/calf. It resolved the "all over" tingling. Past Medical History: Diagnosis Date Acute non-recurrent maxillary sinusitis Asthma Chronic rhinitis Conjunctivitis, chronic PCOS (polycystic ovarian syndrome) Seasonal allergic rhinitis due to other allergic trigger Past Surgical History: Procedure Laterality Date CEASAREAN SECTION, MULTIPLES has had 2 done DENTAL SURGERY Molars removed REFRACTIVE SURGERY Bilateral 2011 SKIN EXCISION 4 different procedures to remove birthmark Family History Problem Relation Age of Onset Allergies Mother Asthma Maternal Aunt Asthma Paternal Aunt Social History Socioeconomic History Marital status: Spouse name: Not on file Number of children: Not on file Years of education: Not on file Highest education level: Not on file Tobacco Use Smoking status: Never Smoker Smokeless tobacco: Never Used Substance and Sexual Activity Alcohol use: Yes Frequency: 2-4 times a month Drinks per session: 1 or 2 Binge frequency: Weekly Comment: rarely Drug use: Never reports that she has never smoked. She has never used smokeless tobacco. She reports curre nt alcohol use. She reports that she does not use drugs. Allergies Allergen Reactions Keflex (Cephalexin) Anaphylaxis Albuterol Other (See Comments) "shakey" Cat Hair Extract Swelling Intolerance No active intolerances/contraindications Current Outpatient Medications Medication Sig Dispense Refill desogestrel-ethinyl estradiol (AZURETTE) 0.15-0.02/0.01 MG (21/5) per tablet Take 1 tab let by mouth Daily. FLUoxetine (PROZAC) 10 mg capsule Take 1 capsule by mouth Daily. May increase to 2 tabs daily after 1 week. 30 capsule 11 fluticasone (FLONASE) 50 mcg/nasal spray 1 spray by Nasal route Daily. hydrOXYzine hydrochloride (ATARAX) 25 mg tablet Take 1 tablet by mouth every 6 hours as needed for Anxiety. 60 tablet 0 montelukast (SINGULAIR) 10 mg tablet Take 1 tablet by mouth Daily. 90 tablet 3 omeprazole (PRILOSEC) 20 mg capsule Take 20 mg by mouth nightly. ondansetron (ZOFRAN ODT) 4 mg disintegrating tablet Take 1 tablet by mouth every 8 hour s as needed for Nausea. 24 tablet 0 No current facility-administered medications for this visit. Review of Systems Constitutional: Negative. Negative for fever and malaise/fatigue. HENT: Negative. Negative for congestion, sore throat and tinnitus. Eyes: Negative. Negative for blurred vision and pain. Respiratory: Negative. Negative for cough and shortness of breath. Cardiovascular: Negative. Negative for chest pain, palpitations and leg swelling. Gastrointestinal: Positive for nausea. Negative for abdominal pain, constipation, diarrhea, heartburn and vomiting. Genitourinary: Negative. Negative for dysuria. Musculoskeletal: Negative. Negative for back pain, joint pain and myalgias. Skin: Negative. Negative for rash. Neurological: Negative for dizziness, tingling, weakness and headaches. Psychiatric/Behavioral: Negative. Negative for depression. The patient is not nervous/anxi ous and does not have insomnia. Physical therapy treatment room consult to educate in self care, instruct in therapeutic ex ercises, and use of manual therapy as indicated. Use of modalities for pain and swelling red uction when appropriate. Objective: BP 120/76 | Pulse 98 | Temp 36.7 C (98.1 F) (Temporal) | Wt 95.7 kg (210 lb 15.7 oz) | LMP 08/31/2019 (Approximate) | SpO2 96% | BMI 29.43 kg/m Physical Exam General Appearance: Alert, cooperative, no distress, appears stated age Head: Normocephalic, without obvious abnormality, atraumatic Eyes: PERRL, conjunctiva/corneas clear, EOM's intact Nose: Nares normal, septum midline, mucosa normal, no drainage or sinus tenderness Throat: Lips, mucosa, and tongue normal; teeth and gums normal Neck: Supple, symmetrical, no adenopathy Lungs: No [...] and supraclavicular nodes normal Neurologic: Gait normal Physical therapy treatment room consult to educate in self care, instruct in therapeutic ex ercises, and use of manual therapy as indicated. Use of modalities for pain and swelling red uction when appropriate. Assessment/Plan: 1. Steroid-induced psychosis with complication (HCC) (Primary) Overview: After a single dose of oral dexamethasone 10 mg at the [facility] in [place] on 10/26/2018, given due to complaining of "throat closing " Assessment & Plan: Patient is improving. She will follow up with physical therapist again today, since she reports this had helped h er. Reassured her Considering GI consult for possible EGD if not better after 4-6 weeks of PPI The patient was satisfied with the care received and voiced understanding of the issues dis cussed and the plan. Return if symptoms worsen or fail to improve. Electronically signed by Steff Hightower MD Portions of this report were transcribed using [employer] voice recognition soft miranda. Although effort was made in correcting the errors; grammatical and sound alike errors may still be present. documented in this enc ounter Miscellaneous Notes Assessment & Plan Note - Yudith Zamarripa, Adult Nurse Practitioner - 09/01/2019 11:52 AM PSTAss ociated Problem(s): Steroid-induced psychosis with complication (HCC)Patient is improving. She will follow up with physical therapist again today, since she reports this had helped h er. Reassured her Considering GI consult for possible EGD if not better after 4-6 weeks of PPI documented in this encounter Plan of Treatment Not on filedocumented as of this encounter Visit Diagnoses + + | Diagnosis | + + | Steroid-induced psychosis with complication (HCC) - Primary | + + documented in this encounter
--- OUTSIDE RECORDS SUMMARY | ~2020-05-09 | XMS | Clinical Summary ---
Demographics + + + | Address | [address] | | | [place] [address] | + + + | Home Phone | | + + + | Preferred Language | Unknown | + + + | Marital Status | | + + + | Latter-Day Affiliation | Unknown | + + + | Race | Unknown | + + + | Ethnic Group | Unknown | + + + Author + + + | Author | [facility] | | | and [place] | + + + | Organization | [facility] | | | and [place] | + + + | Address | Unknown | + + + | Phone | Unavailable | + + + Support + + +---------+ + | Name | Relationship | Address | Phone | + + +---------+ + | Julián Kingstree | ECON | Unknown | | + + +---------+ + Care Team Providers + +------+ + | Care Rug Setter Velvet Name | Role | Phone | + +------+ + | Steff Hightower MD | PCP | | + +------+ + Allergies + + + + + + | Active Allergy | Reactions | Severity | Noted | Comments | | | | | Date | | + + + + + + | Albuterol | Other (See Comments) | | 06/23/20 | "roz" | | | | | 19 | | + + + + + + | Cat Hair Extract | Swelling | | 06/23/20 | | | | | | 19 | | + + + + + + | Cephalexin | Anaphylaxis | High | 06/14/20 | | | | | | 19 | | + + + + + + Medications + + + +---------+------+------+-------+ | Medication | Sig | Dispensed | Refills | Star | End | Statu | | | | | | t | Date | s | | | | | | Date | | | + + + +---------+------+------+-------+ | fluticasone | 1 spray by Nasal | | 0 | | | Activ | | (FLONASE) 50 | route Daily. | | | | | e | | mcg/nasal spray | | | | | | | + + + +---------+------+------+-------+ | | Take 1 tablet by | | 0 | | | Activ | | desogestrel-ethinyl | mouth Daily. | | | | | e | | estradiol (AZURETTE) | | | | | | | | 0.15-0.02/0.01 MG | | | | | | | | (21/5) per tablet | | | | | | | + + + +---------+------+------+-------+ | Triamcinolone | 1 spray by Nasal | | 0 | | | Activ | | Acetonide (NASACORT | route 2 times daily. | | | | | e | | ALLERGY 24HR NA) | | | | | | | + + + +---------+------+------+-------+ | cyanocobalamin | Take 50 mcg by mouth | | 0 | | | Activ | | (VITAMIN B-12) 50 | Daily. | | | | | e | | MCG tablet | | | | | | | + + + +---------+------+------+-------+ | ergocalciferol | Take 1.25 mg by | | 0 | | | Activ | | (VITAMIN D2) 1.25 mg | mouth Once a week. | | | | | e | | (50,000 units) | | | | | | | | capsule | | | | | | | + + + +---------+------+------+-------+ | fish oil 1,000 mg | Take 1,000 mg by | | 0 | | | Activ | | capsule | mouth 3 times daily. | | | | | e | + + + +---------+------+------+-------+ | magnesium oxide | Take 400 mg by mouth | | 0 | | | Activ | | (MAG-OX) 400 mg | Daily. | | | | | e | | tablet | | | | | | | + + + +---------+------+------+-------+ Active Problems + + + | Problem | Noted Date | + + + | Gastroesophageal reflux disease with esophagitis | 09/21/2019 | + + + + + | Last Assessment & Plan: Patient requesting EGD, referred to | | Dr. Costello in [place], he is a general surgeon but does the | | studies | + + +---------+ + | Vertigo | 09/21/2019 | +---------+ + + + | Overview: Had vestibular therapy twice and reports it worked | | wonderfully Last Assessment & Plan: Patient is requesting | | vestibular therapy again todayContinue meclizine as needed | |Continue meclizine as needed | + + + + + | Paresthesias | 09/13/2019 | + + + | Family history of diabetes mellitus | 09/13/2019 | + + + | DUB (dysfunctional uterine bleeding) | 09/13/2019 | + + + + + | Overview: This is breakthrough bleeding from taking | | inappropriately her OCPs Last Assessment & Plan: I explained | | to her how to take her oral contraceptives and instructed her to | | continue the next package the next day after she completes the | | previous one.She is scheduled with her corporate wellness coordinator to follow-up | | next week.We are going to request records; she reports she has | | PCOS | + + + + + | Steroid-induced psychosis with complication | 08/31/2019 | + + + + + | Overview: After a single dose of oral dexamethasone 10 mg at | | the [facility] in [place] on 08/26/2019, given due to | | complaining of "throat closing " Last Assessment & Plan: This | | has resolved as of 09/21/2019. | + + + + + | Generalized anxiety disorder | 08/23/2019 | + + + + + | Overview: Started fluoxetine 10 mg mid July 2019 and she | | took it for about 3 months...She stopped taking Fluoxetine 20 mg | | due to:- dizziness- mood swings- brain fog- suicidal thoughts - | | increased panic attacks Last Assessment & Plan: Will not start | | medications at this time. Patient given a copy of her Gene sight | | report. She will be moving to [place] in a few months. | | Discussed CBT and mental health counseling as needed.Reviewed the | | concept of physical symptoms for emotional anxiety.Today's | | scores: PHQ9 was 0GAD7 was 3 | | | |Discussed CBT and mental health counseling as needed. | | | |Reviewed the concept of physical symptoms for emotional anxiety. | | | |Today's scores: | |PHQ9 was 0 | |GAD7 was 3 | + + + + + | Encounter to establish care | 06/23/2019 | + + + + + | Overview: Health Maintenance -Colonoscopy: Not at screening | | age.-Mammogram: Not at screening age.-Dexa Scan: Not at screening | | age.-Pap Smear: done 09/2018 in [place]. Will request | | record. Last Assessment & Plan: Healthy habits discussed, | | including regular breast exams, proper calcium intake, exercise. | | Reviewed need for age appropriate screening examinations and | | vaccines. Ordered if appropriate. Follow-up one year for next | | exam. | + + + + + | Mild intermittent asthma without complication | 06/23/2019 | + + + | Recurrent acute serous otitis media of both ears | 06/23/2019 | + + + + + | Last Assessment & Plan: She can stop taking the Benadryl, and | | zyrtec and continue to use the Flonase and start the Zyrtec-D as | | needed and start Singular nightly. Advised her to continue this | | for a couple weeks and if this does not improve then we can | | consider an allergy consultation.Discussed eustachian tube | | dysfunction and treatment may take a few weeks up to a few | | months. to avoid dust mites, wash sheets once a week and expose | | them to the sun. Avoid exposure to dust, vacuum the carpets at | | least twice a week and dust furniture with a damp cloth. Avoid | | pet, dust mold, pollen and grass exposures. | + + + + + | Seasonal allergic rhinitis due to pollen | 06/23/2019 | + + + + + | Last Assessment & Plan: New referral placed for | | [facility] in [place]. | + + Encounters +--------+ + + + + | Date | Type | Specialty | Care Team | Description | +--------+ + + + + | 03/29/ | Telephone | Family Medicine | Steff Hightower MD | Vision Changes; | | 2019 | | | | Numbness | +--------+ + + + + from Last 3 Months Immunizations + + + + | Name | Administration Dates | Next Due | + + + + | INFLUENZA PF 18 Y OR | 07/25/2019 | | | >,TRIVALENT | | | | RECOMBINANT | | | + + + + | PNEUMOCOCCAL | 09/21/2019 | | | POLYSACCHARIDE | | | | 23-VALENT (PPSV23) | | | + + + + | TDAP, (ADOL/ADULT) | 06/02/2018, 06/19/2014 | | + + + + Family History + + +------+ + | Medical History | Relation | Name | Comments | + + +------+ + | Asthma | Maternal | | | | | Aunt | | | + + +------+ + | Allergies | Mother | | | + + +------+ + | Asthma | Paternal | | | | | Aunt | | | + + +------+ + + +------+--------+ + | Relation | Name | Status | Comments | + +------+--------+ + | Maternal Aunt | | | | + +------+--------+ + | Mother | | | | + +------+--------+ + | Paternal Aunt | | | | + +------+--------+ + Social History + +-------+ +--------+------+ | [...] on file | | + + + Last Filed Vital Signs + + + + + | Vital Sign | Reading | Time Taken | Comments | + + + + + | Blood Pressure | 120/62 | 12/06/2019 1:38 PM | | | | | PST | | + + + + + | Pulse | 87 | 12/06/2019 1:38 PM | | | | | PST | | + + + + + | Temperature | 36.5 C (97.7 F) | 12/06/2019 1:38 PM | | | | | PST | | + + + + + | Respiratory Rate | 17 | 11/24/2019 11:37 AM | | | | | PST | | + + + + + | Oxygen Saturation | 100% | 12/06/2019 1:38 PM | | | | | PST | | + + + + + | Inhaled Oxygen | - | - | | | Concentration | | | | + + + + + | Weight | 97.4 kg (214 lb 11.7 | 12/06/2019 1:38 PM | | | | oz) | PST | | + + + + + | Height | 180.3 cm (5' 11") | 11/24/2019 11:37 AM | | | | | PST | | + + + + + | Body Mass Index | 29.95 | 11/24/2019 11:37 AM | | | | | PST | | + + + + + Plan of Treatment + + + + + | Health Maintenance | Due Date | Last | Comments | | | | Done | | + + + + + | Hepatitis C | | | | | Screening | 8 | | | + + + + + | Cervical Cancer | | | | | Screening (Pap) | 8 | | | + + + + + | Vaccine: Influenza | | 07/25/20 | | | (#1) | 0 | 19 | | + + + + + | Vaccine: | | 06/02/20 | | | Dtap/Tdap/Td (3 - | 8 | 18, | | | Td) | | 06/19/20 | | | | | 14 | | + + + + + | Vaccine: | Completed | 09/21/20 | | | Pneumococcal 19-64 | | 19 | | + + + + + Results Not on filefrom Last 3 Months Insurance + +--------+ +--------+ +---------+------+ | Payer | Benefi | Subscriber | Effect | Phone | Address | Type | | | t Plan | ID | chioma | | | | | | / | | Dates | | | | | | Group | | | | | | + +--------+ +--------+ +---------+------+ | [employer] | PHP | [id number] | 05/12/20 | [phone] | | PPO | | PLAN | [employer] | | 15-Pre | 5 | | | | | [employer] | | sent | | | | | | JOSE | | | | | | + +--------+ +--------+ +---------+------+ | [employer] | PHP | [id number] | 10/12/19 | [phone] | | PPO | | PLAN | [employer] | | 18-Pre | 5 | | | | | [employer]W | | sent | | | | | | JOSE | | | | | | + +--------+ +--------+ +---------+------+ + +--------+ +--------+ + + | Guarantor Name | Accoun | Relation to | Date | Phone | Billing Address | | | t Type | Patient | of | | | | | | | | | | + +--------+ +--------+ + + | Mariella Obregon | Person | Self [birth year] | [address] | | | al/Fam | | 1989 | [phone] | [place] [address] | | | royer | | | 4 (Home) | | + +--------+ +--------+ + + | Mariella Obregon | Person | Self [birth year] | [address] | | | al/Fam | | 1989 | [phone] | [place] [address] | | | royer | | | 4 (Home) | | + +--------+ +--------+ + + Advance Directives + + + + + | Type | Date Recorded | Patient | Explanation | | | | Shell Mold Bonding Machine Operator | | + + + + + | Power of | | | | | Digital Advertising Specialist | | | | + + + + + | Advance | | | | | Directive | | | | + + + + +
--- OUTSIDE RECORDS SUMMARY | ~2020-05-09 | XMS | Encounter Summary ---
Demographics + + + | Address | [address] | | | [place] [address] | + + + | Home Phone | | + + + | Preferred Language | Unknown | + + + | Marital Status | | + + + | Muslim Affiliation | Unknown | + + + | Race | Unknown | + + + | Ethnic Group | Unknown | + + + Author + + + | Author | [facility] | | | and [place] | + + + | Organization | [facility] | | | and [place] | + + + | Address | Unknown | + + + | Phone | Unavailable | + + + Support + + +---------+ + | Name | Relationship | Address | Phone | + + +---------+ + | Juláin Sabas | ECON | Unknown | | + + +---------+ + Care Team Providers + +------+ + | Care Silverware Cleaner Name | Role | Phone | + +------+ + | Steff Hightower MD | PCP | | + +------+ + Reason for Visit + +--------+ + | Reason | Onset | Comments | | | Date | | + +--------+ + | Records Request | 07/28/ | | | | 2018 | | + +--------+ + | ED Follow-up | 07/28/ | | | | 2018 | | + +--------+ + Encounter Details +--------+ + + + + | Date | Type | Department | Care Team | Description | +--------+ + + + + | 07/28/ | Telephone | [facility] | Steff Hightower MD | Records Request; ED | | 2019 | | MEDICINE [place] | [address] | Follow-up | | | | [address] | [place] | | | | | [place] | [address] | | | | | [address] | | | | | | [phone] | | | +--------+ + + + [...] this encounter Miscellaneous Notes Telephone Encounter - Carole Gómez - 07/29/2019 2:48 PM PDTTried calling, no answer.Electro nically signed by Carole Gómez at 07/29/2019 2:52 PM PDTTelephone Encounter - Steff Hightower MD - 07/28/2019 3:33 PM PDTReceived lab records, if she wants explanation, please schedule office visit, thank you, P DTTelephone Encounter - Mee Blanc CMA - 07/28/2019 2:42 PM PDTWe did reviewed pap erwork and this has been placed on providers desk. elephone Encounter - Marlen Carter RN - 07/28/2019 1 1:10 AM PDTReceived phone call from patient. States she was at the ER in [place] in mid June. States she asked them to send us t he lab reports. She is calling to find out if we have received the results. Let her know hay t I don't see them in the computer yet, but do see that we sent a request to [facility] to request her records. She thinks they sent them to her OB Dr. She will follow-up with [facility] and her OB Dr, to see if they can send us the ER lab reports. documented in thi s encounter Plan of Treatment Not on filedocumented as of this encounter Visit Diagnoses Not on filedocumented in this encounter"
--- OUTSIDE RECORDS SUMMARY | ~2020-05-09 | XMS | Encounter Summary ---
Demographics + + + | Address | [address] | | | [place] [address] | + + + | Home Phone | | + + + | Preferred Language | Unknown | + + + | Marital Status | | + + + | Orthodoxy Affiliation | Unknown | + + + | Race | Unknown | + + + | Ethnic Group | Unknown | + + + Author + + + | Author | [facility] | | | and [place] | + + + | Organization | [facility] | | | and [...] Team Providers + +------+ + | Care Administrative Clerk Name | Role | Phone | + +------+ + | Steff Hightower MD | PCP | | + +------+ + Reason for Visit + +--------+ + | Reason | Onset | Comments | | | Date | | + +--------+ + | Vision Changes | 03/29/ | | | | 2020 | | + +--------+ + | Numbness | 03/29/ | | | | 2020 | | + +--------+ + Encounter Details +--------+ + + + + | Date | Type | Department | Care Team | Description | +--------+ + + + + | 03/29/ | Telephone | [facility] | Steff Hightower MD | Vision Changes; | | 2019 | | MEDICINE [place] | [address] | Numbness | | | | [address] | [place], [place] | | | | | [place], [place] | [address] | | | | | [address] | | | | | | [phone] | | | +--------+ + + + [...] Notes Telephone Encounter - Carole Gómez - 04/03/2020 2:35 PM PDTContacted patient and she stated she does not need appointment after all and that urgent care was able to address her issues . elephone Encounter - Katty Carvalho - 03/30/2020 9:23 AM PDTLeft message for patient to return our callElectron ically signed by Katty Pineda at 03/30/2020 9:23 AM PDTTelephone Encounter - Josephine Gruber RN - 03/29/2020 4:52 PM PDTLet do the first Thursday that Adilia Cash or Dr Dwyer's is available. Thanks.Electronically signed by Josephine He RN at 03/29 4:52 PM PDTTelephone Encounter - Katty Carvalho - 03/29/2020 3:48 PM PDTPati ent is only available Thursday. Natasha is out Thursday. Let me know how you want patient sche duled elephone En[place] unter - Josephine He RN - 03/29/2020 2:40 PM PDTPlease call and schedule patient with Natasha Hernández since Dr Hightower is out for the next two weeks. Thanks.Electronically s igned by Josephine He RN at 03/29/2020 2:43 PM PDTTelephone Encounter - Garret Licona - 03/29/2020 1:46 PM PDTPatient called back stating she went to Urgent care and they recommended that she get tested for diabetes. Patient would like a call back from Kane Hightower. Please advise. 1:4 8 PM PDTTelephone Encounter - Marlen Carter RN - 03/29/2020 12:17 PM PDT Received sara ne call from patient. She was at the grocery store today and "all of a sudden started having trouble seeing and toes and fingers went numb." States she feels like she "is in a tunnel" She went home and ate some peanut M&M's thinking it might be her blood sugar, but that didn 't help. States that a few months ago she was checked for diabetes and the test was negati ve for diabetes and pre-diabetes, but she is still concerned about it. Asked her if she has a history of migraines. She states she has had migraines since childho od, but she doesn't have a headache right now at all. She has had these symptoms before but always with a headache, never without a headache. No appointment available here today. Advised patient to go to Urgent Care to be evaluated. Patient agrees to do this. documented in thi s encounter Plan of Treatment Not on filedocumented as of this encounter Visit Diagnoses Not on filedocumented in this encounter
--- OUTSIDE RECORDS SUMMARY | ~2020-05-09 | XMS | Encounter Summary ---
Demographics + + + | Address | [address] | | | [place] [address] | + + + | Home Phone | | + + + | Preferred Language | Unknown | + + + | Marital Status | | + + + | Shinto Affiliation | Unknown | + + + | Race | Unknown | + + + | Ethnic Group | Unknown | + + + Author + + + | Author | [facility] | | | and [place] | + + + | Organization | [facility] | | | and [...] Team Providers + +------+ + | Care Hotbed Transfer Operator Name | Role | Phone | + +------+ + | Steff Hightower MD | PCP | | + +------+ + Reason for Visit +---------+ + | Reason | Comments | +---------+ + | Anxiety | | +---------+ + Encounter Details +--------+---------+ + + + | Date | Type | Department | Care Team | Description | +--------+---------+ + + + | 11/24/ | Office | [facility] | Steff Hightower MD | Generalized anxiety | | 2020 | Visit | MEDICINE [place] | [address] | disorder (Primary | | | | [address] | [place] | Dx) | | | | [place] | [address] | | | | | [address] | | | | | | [phone] | | | +--------+---------+ + + + [...] + + + | Blood Pressure | 110/82 | 11/24/2019 11:37 AM | | | | | PST | | + + + + + | Pulse | 101 | 11/24/2019 11:37 AM | | | | | PST | | + + + + + | Temperature | 37.4 C (99.4 F) | 11/24/2019 11:37 AM | | | | | PST | | + + + + + | Respiratory Rate | 17 | 11/24/2019 11:37 AM | | | | | PST | | + + + + + | Oxygen Saturation | 99% | 11/24/2019 11:37 AM | | | | | PST | | + + + + + | Inhaled Oxygen | - | - | | | Concentration | | | | + + + + + | Weight | 92.1 kg (203 lb 0.7 | 11/24/2019 11:37 AM | | | | oz) | PST | | + + + + + | Height | 180.3 cm (5' 11") | 11/24/2019 11:37 AM | | | | | PST | | + + + + + | Body Mass Index | 28.32 | 11/24/2019 11:37 AM | | | | | PST | | + + + + + documented in this encounter Patient Instructions Patient Instructions Mee Blanc CMA - 11/24/2019 11:30 AM PSTFormatting of this no te might be different from the original. Return if symptoms worsen or fail to improve. If you have any questions, please call us . Prescription Refill Notice: All prescription refill requests [...] cancellation or re-scheduling of your appointme nt. AnxietyReaction Anxiety is the feeling we all get when we think something bad might happen. It is a normal response to stress and usually causes only a mild reaction. When anxiety becomes more severe , it caninterfere with daily life. In some cases, you may not even be aware of what it is you re anxious about. There may also be a genetic link or it may be a learned behavior in the home. Both psychological and physical triggers cause stress reaction. It's often a response to fe ar or emotional stress, real or imagined. This stress may come from home, family, work, or s ocial relationships. During an anxiety reaction, you may feel: Helpless Nervous Depressed Irritable Your body may show signs of anxiety in many ways. You may experience: Dry mouth Shakiness Dizziness Weakness Trouble breathing Breathing fast (hyperventilating) Chest pressure Sweating Headache Nausea Diarrhea Tiredness Inability to sleep Sexual problems Home care Try to locate the sources of stress in your life. They may not be obvious. These may inc lude: ? Daily hassles of life (such as traffic jams, missed appointments, or car troubles) ? Major life changes, both good (new baby or job promotion) and bad (loss of job or loss of loved one) ? Overload: feeling that you have too many responsibilities and can't take care of all of t hem at once ? Feeling helpless or feeling that your problems are beyond what you re able to solve Notice how your body reacts to stress. Learn to listen to your body signals. This will h elp you take action before the stress becomes severe. When you can, do something about the source of your stress. (Avoid hassles, limit the am ount of change that happens in your life at one time and take a break when you feel overload ed). Unfortunately, many stressful situations can't be avoided. It is necessary to learn how to better manage stress. There are many proven methods that will reduce your anxiety. These include simple things like exercise, good nutrition, and adequate rest. Also, there are cert ain techniques that are helpful: ? Relaxation ? Breathing exercises ? Visualization ? Biofeedback ? Meditation For more information about this, consult your healthcare provider or go to a local bookstor e and review the many books and tapes available on this subject. Follow-up care If you feel that your anxiety is not responding to self-help measures, contact your [facility] are provider or make an appointment with a counselor. You may need short-term psychological counseling and temporary medicine to help you manage stress. Call 911 Call 911 if any of these happen: Trouble breathing Confusion Drowsiness or trouble wakening Fainting or loss of consciousness Rapid heart rate Seizure New chest pain that becomes more severe, lasts longer, or spreads into your shoulder, ar m, neck, jaw, or back When to seek medical advice Call your healthcare provider right away if any of these happen: Your symptoms get worse Severe headache not relieved by rest and mild pain reliever Date Last Reviewed: 07/12/201719999245-7251 [employer]. [address] [place] [address]. All righ ts reserved. This information is not intended as a substitute for professional medical care. Always follow your healthcare professional's instructions. Understanding Anxiety Disorders Almost everyone gets nervous now and then. It s normal to have knots in your stomach befo re a test, or for your heart to race on a first date. But an anxiety disorder is much more t perez a case of nerves. In fact, its symptoms may be overwhelming. But treatment can relieve m any of these symptoms. Talking to your healthcare provider is the first step. What are anxiety disorders? An anxiety disorder causes intense feelings of panic and fear. These feelings may arise for no apparent reason. And they tend to recur again and again. They may prevent you from copin g with life and cause you great distress. As a result, you may avoid anything that triggers your fear. In extreme cases, you may never leave the house. Anxiety disorders may cause othe r symptoms, such as: Obsessive thoughts you can t control Constant nightmares or painful thoughts of the past Nausea, sweating, and muscle tension Trouble sleeping or concentrating What causes anxiety disorders? Anxiety disorders tend to run in families. For some people, childhood abuse or neglect may play a role. For others, stressful life events or trauma may trigger anxiety disorders. Anxi ety can trigger low self-esteem and poor coping skills. Common anxiety disorders Panic disorder. This causes an intense fear of being in danger. Phobias. These are extreme fears of certain objects, places, or events. Obsessive-compulsive disorder. This causes you to have unwanted thoughts and urges. You also may perform certain actions over and over. Posttraumatic stress disorder. This occurs in people who have survived a terrible ordeal . It can cause nightmares and flashbacks about the event. Generalized anxiety disorder. This causes constant worry that can greatly disrupt your l chaka. Getting better You may believe that nothing can help you. Or, you might fear what others may think. But mo st anxiety symptoms can be eased. Having an anxiety disorder is nothing to be ashamed of. Mo st people do best with treatment that combines medicine and therapy. These aren t cures. B ut they can help you live a healthier life. Date Last Reviewed: 11/12/201619995879-1040 [employer]. [address] [place] [address]. All righ ts reserved. This information is not intended as a substitute for professional medical care. Always follow your healthcare professional's instructions. documented in this encounter Progress Notes Steff Hightower MD - 11/24/2019 11:30 AM PST Subjective: Patient ID: Mariella Obregon is a 29 y.o. female. Chief Complaint Patient presents with Anxiety HPI Patient presents to clinic for anxiety and depression. Therapist - Aj Gonzalez, [place] Depression/Anxiety: Patient is here for follow-up of Depression and anxiety. Reports that she was taken off of her Prozac on 10/21/2019 with Adilia NEWSOME. She developed side effects that were gradually worsened severe as in dizziness, vertigo, mo od swings and a brain fog, hair anxiety increased that she started having panic attacks and she says "it doubled the depression "as well as suicidal thoughts at the end right before he was discontinued. 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 She feels overwhelmed taking care of HER-2 children 04/05, her is working 2 shifts a t the [employer] because of decreased lan support specialist. She feels stressed, is worki night shifts and sleeps during the day so she has no help with her children. She reports that on a trip to visit family and sharing the childcare made her feel so much better, she improved her symptoms and anxiety went away for the duration of the trip, so she knows it is the stress of being tied up to those kids all the time. She became very teary and sad talking about these issues her youngest child Jet is 13 mo nths old. She reports she went to mental health counselor and the counselor told her she was not bipo lar and the depression was not as bad as the anxiety. We reviewed the MDQ test with a score of 3 at her last visit. Currently taking these vitamins. B12 Vitamin D [place] 3 Magnesium Onset: on-going She has the following depression symptoms: depressed mood, difficulty concentrating, fatigu e, feelings of worthlessness/guilt, hypersomnia, impaired memory and psychomotor retardation She denies the following symptoms: anhedonia and recurrent thoughts of She complains of the following anxiety symptoms: feeling nervous, anxious, not able to stop worrying, worrying too much, having trouble relaxing, easily annoyed or irritable and feeli ng afraid something bad might happen Symptoms show no change Sleep Disturbance: Sometimes Are you currently in counseling: yes Treatments Tried: medications and counseling Have they been effective: Sometimes Current psychiatric medications Disp Refills Start End hydrOXYzine hydrochloride (ATARAX) 25 mg tablet 60 tablet 0 08/02/2019 Sig - Route: Take 1 tablet by mouth every 6 hours as needed for Anxiety. - Oral PHQ9 SCORE Office Visit from 11/24/2019 in [facility] Office Visit from 2019 in [facility] Office Visit from 09/21/2019 in [facility] Office Visit from 08/23/2019 in [facility] PHQ-9 Total Score (Patient Health Questionnaire) 6 19 6 1 ANXIETY/STRESS SCORE Office Visit from 11/24/2019 in [facility] Office Visit from 2019 in [facility] Office Visit from 09/21/2019 in [facility] Office Visit from 08/23/[address] [facility] KAY-7 Score (General Anxiety Disorder) 12 16 0 0 Past Medical History: Diagnosis Date Abnormal uterine bleeding Acute non-recurrent maxillary sinusitis Asthma Chronic rhinitis [...] Current Outpatient Medications Medication Sig Dispense Refill cholecalciferol (CHOLECALCIFEROL) 50 mcg (2,000 units) tablet Take 1 tablet by mouth Da royer. 30 each 5 cyanocobalamin (VITAMIN B-12) 50 MCG tablet Take 50 mcg by mouth Daily. desogestrel-ethinyl estradiol (AZURETTE) 0.15-0.02/0.01 MG (21/5) per tablet Take 1 tab let by mouth Daily. ergocalciferol (VITAMIN D2) 1.25 mg (50,000 units) capsule Take 1.25 mg by mouth Once a week. fish oil 1,000 mg capsule Take 1,000 mg by mouth 3 times daily. fluticasone (FLONASE) 50 mcg/nasal spray 1 spray by Nasal route Daily. hydrOXYzine hydrochloride (ATARAX) 25 mg tablet Take 1 tablet by mouth every 6 hours as needed for Anxiety. (Patient not taking: Reported on 11/24/2019) 60 tablet 0 magnesium oxide (MAG-OX) 400 mg tablet Take 400 mg by mouth Daily. Triamcinolone Acetonide (NASACORT ALLERGY 24HR NA) 1 spray by Nasal route 2 times daily . No current facility-administered medications for this visit. Review of Systems Constitutional: Negative for chills, fever and malaise/fatigue. HENT: Negative for congestion, ear discharge, ear pain, sinus pain, sore throat and tinnitu s. Eyes: Positive for blurred vision. Negative for pain. Respiratory: Negative for cough, sputum production, shortness of breath and wheezing. Cardiovascular: Negative for chest pain, palpitations, claudication and leg swelling. Gastrointestinal: Negative for abdominal pain, constipation, diarrhea, heartburn, nausea an d vomiting. Genitourinary: Negative for dysuria, flank pain and frequency. Musculoskeletal: Negative for back pain, joint pain, myalgias and neck pain. Skin: Negative for itching and rash. Neurological: Negative for dizziness, tingling, tremors, focal weakness, weakness and heada ches. Endo/Heme/Allergies: Negative for environmental allergies. Does not bruise/bleed easily. Psychiatric/Behavioral: Negative for depression, hallucinations, memory loss, substance abu se and suicidal ideas. The patient is nervous/anxious. The patient does not have insomnia. Objective: BP 110/82 | Pulse 101 | Temp 37.4 C (99.4 F) (Temporal) | Resp 17 | Ht 1.803 m (5' 11") | Wt 92.1 kg (203 lb 0.7 oz) | SpO2 99% | BMI 28.32 kg/m Physical Exam General Appearance: Alert, cooperative, [...] 10 mg mid July 2019 and she took it for about 3 months... She stopped taking Fluoxetine 20 mg due to: - dizziness - mood swings - brain fog - suicidal thoughts - increased panic attacks Assessment & Plan: GeneSite testing today. Will treat accordingly She is interested on Buspirone Discussed how autonomic nervous system works and the correlation between emotional pain and stress and physical symptoms. - take meds as directed - Discussed stress/anxiety relieving activities including deep breathing, exercise, etc. - Counseling advised prn for worsening anxiety or for anxiety not under good control. The patient was satisfied with the care received and voiced understanding of the issues dis cussed and the plan. Return in about 2 weeks (around 12/08/2019), or if symptoms worsen or fail to improve, for [place] site and depression F/U. Electronically signed by Steff Hightower MD Portions of this report were transcribed using [employer] recognition soft miranda. Although effort was made in correcting the errors; grammatical and sound alike errors may still be present. d ocumented in this encounter Miscellaneous Notes Assessment & Plan Note - Mee Blanc, [facility] - 11/24/2019 11:58 AM PSTAssociated Proble m(s): Generalized anxiety disorderGeneSite testing today. Will treat accordingly She is interested on Buspirone Discussed how autonomic nervous system works and the correlation between emotional pain and stress and physical symptoms. - take meds as directed - Discussed stress/anxiety relieving activities including deep breathing, exercise, etc. - Counseling advised prn for worsening anxiety or for anxiety not under good control. Elect ronically signed by Steff Hightower MD at 11/24/2019 12:18 PM PSTdocumented in this encounter Plan of Treatment Not on filedocumented as of this encounter Visit Diagnoses + + | Diagnosis | + + | Generalized anxiety disorder - Primary | + + documented in this encounter
--- OUTSIDE RECORDS SUMMARY | ~2020-05-09 | XMS | Encounter Summary ---
Demographics + + + | Address | [address] | | | [place] [address] | + + + | Home Phone | | + + + | Preferred Language | Unknown | + + + | Marital Status | | + + + | Jew Affiliation | Unknown | + + + | Race | Unknown | + + + | Ethnic Group | Unknown | + + + Author + + + | Author | [facility] | | | and [place] | + + + | Organization | [facility] | | | and [...] Team Providers + +------+ + | Care Lead Pressman Name | Role | Phone | + +------+ + | Steff Hightower MD | PCP | | + +------+ + Reason for Visit + +--------+ + | Reason | Onset | Comments | | | Date | | + +--------+ + | Medication Question | 11/08/ | | | | 2020 | | + +--------+ + Encounter Details +--------+ + + + + | Date | Type | Department | Care Team | Description | +--------+ + + + + | 11/08/ | Telephone | [facility] | Steff Hightower MD | Medication Question | | 2020 | | [facility] | [address] | | | | | [address] | [place] | | | | | [place], [place] | [address] | | | | | [address] | | | | | | [phone] | | | +--------+ + + + [...] Telephone Encounter - Lavonne Nunes RN - 11/08/2019 2:47 PM PSTPatient called in on 10/21/2019 and reported some adverse reactions to Prozac. Thankfully since stopping the medi cation looks like the concerning symptoms have resolved. Routing to for her records. Electronically signed by Lavonne Nunes RN at 3:16 PM PSTTelephone Encounter - Carlos Alberto-Shirley Davies - 11/08/2019 11:28 AM PSTPatie nt called in stated since she has been off the medication Prozac everything has gone back to normal. Please advise Tdocumented in this encounter Plan of Treatment Not on filedocumented as of this encounter Visit Diagnoses Not on filedocumented in this encounter"
--- OUTSIDE RECORDS SUMMARY | ~2020-05-09 | XMS | Encounter Summary ---
Demographics + + + | Address | [address] | | | [place] [address] | + + + | Home Phone [...] + + | Author | [facility] | | | and [place] | + + + | Organization | [facility] | | | and [place] [...] Team Providers + +------+ + | Care Cook Ship Name | Role | Phone | + [...] + + | 09/12/ | Office | [facility] | Steff Hightower MD | Encounter to | | 2019 | Visit | [facility] | [address] | establish care | | | | [address] | [place] | (Primary Dx); Mild | | | | [place] | [address] | intermittent asthma | | | | [address] | | without | | | | [phone] | | complication; | | | | [...] Instructions Patient Instructions Mee Blanc CMA - 06/23/2019 9:15 AM PDTFormatting of this no te might be different from the original. Return in about 1 year (around 06/23/2020), or if symptoms worsen or fail to improve, for An nual Exam.If you have any questions, please call us [phone]. Appointment reminders by text: Do you have an upcoming appointment? Receive a test reminder! Text the word Caipiaobao to [phone] to opt. in and ask our front end loader operator for more information laron colby your visit today. *Standard message and data [...] the eyes or mouth Date Last Reviewed: 12/10/201619994522-2163 [employer]. [address] [place] [id number]. All [facility] ts reserved. This information is not intended [...] week. Cover mattress and pillows with special zlez-aouu-lsbcslqsaw. Don t use upholstered furniturelike sofas or [...] spray bottles instead of aerosols. Pour liquid anhydrous ammonia production supervisor onto a rag or cloth instead of [...] with soap and warm water orusea hand roll clamp operator containing alco hol. Get a yearly flu [...] Be sure to read the labels on fkhm-wuw-sfqsdxl medicines.They may have ingredients hay t cause [...] about these symp toms. Date Last Reviewed: 10/12/201619992664-2847 [employer]. [address] [place] [address], [place] [address]. All righ ts reserved. This information is [...] carpeting. Think about buying a home air radiator cleaner with a HEPA (high-efficiency particulate air) filt [...] reptiles don't cause allergies. Date Last Reviewed: 07/12/201619992328-7802 [employer]. [address] [place] [address]. All righ ts reserved. This information is [...] from her in-law's. She had forgot that [facility] in-law's have cats and she has an allergy to cats. So she did get rid of the couch but dalia rasmussen is still having swelling in her lymph nodes and she would like a referral to see someone. C/O pressure in her ears, swollen throat "getting shots" she has already seen 3 or 4 physic ians for these issues, received Cortisporin orthotic for "swimmer's ear's ", she is been see n in [facility] in [place] for sinus infection since and had doxycycline [...] PHQ9 SCORE Office Visit from 06/23/2019 in [facility] PHQ-9 Total Score (Patient Health Questionnaire) 4 [...] tablet 0 desogestrel-ethinyl estradiol (AZURETTE) 0.15-0.02/0.01 MG (/) per tablet Take 1 tab let by mouth Daily. diphenhydrAMINE (BENADRYL) 25 mg tablet Take 25 mg by mouth every 6 hours as needed for Itching. fluticasone (FLONASE) 50 mcg/nasal spray 1 spray by Nasal route Daily. methylPREDNISolone (MEDROL) 4 mg tablet Take 4 mg by mouth Daily. montelukast (SINGULAIR) 10 mg tablet Take 1 tablet by mouth Daily. 90 tablet 3 wgsabnbl-gvvghkkfe-toqkncgycfzuw (MAXITROL) 3.5-27731-2.1 ophthalmic ointment 4 times d aily. No [...] screening age. -Pap Smear: done 09/2018 in [place]. Will request record. Assessment & Plan: Healthy [...] Portions of this report were transcribed using [employer] voice recognition soft miranda. Although effort was made in correcting the errors; grammatical and sound alike errors may still be present. documented in this enc ounter Miscellaneous Notes Assessment & Plan Note - Mee Blanc CMA - 06/23/2019 10:06 AM PDTAssociated Proble m(s): Recurrent acute serous otitis media of both earsShe can stop taking the Benadryl, and zyrtec and continue to use the Flonase and start the Zyrtec-D as needed and start Singular n ightly. Advised her to continue this for a couple weeks and if this [...] pet, dust mold, pollen and grass exposures. ssessment & Plan Note - Mee Blanc CMA - 06/23/2019 10:02 AM PDTAssociated Problem(s): Encounter to herrera Gunn habits discussed, including regular breast exams, proper calcium intake, e xercise. Reviewed need for age appropriate screening examinations and vaccines. Ordered if appropriate. Follow-up one year for next exam. documented in this encounter Plan of Treatment [...]
--- OUTSIDE RECORDS SUMMARY | ~2020-05-09 | XMS | Encounter Summary ---
Demographics + + + | Address | [address] | | | [place] [address] | + + + | Home Phone | | + + + | Preferred Language | Unknown | + + + | Marital Status | | + + + | Jew Affiliation | Unknown | + + + | Race | Unknown | + + + | Ethnic Group | Unknown | + + + Author + + + | Author | [facility] | | | and [place] | + + + | Organization | [facility] | | | and [...] Team Providers + +------+ + | Care Respiratory Care Practitioner Name | Role | Phone | + +------+ + | Steff Hightower MD | PCP | | + +------+ + Reason for Visit + + + | Reason | Comments | + + + | Blood Sugar Problem | | + + + | Vaginal Bleeding | | + + + Encounter Details +--------+---------+ + + + | Date | Type | Department | Care Team | Description | +--------+---------+ + + + | 09/13/ | Office | [facility] | Steff Hightower MD | Paresthesias; Family | | 2019 | Visit | [facility] | [address] | history of diabetes | | | | [address] | [place] | mellitus; DUB | | | | [place] | [address] | (dysfunctional | | | | [address] | | uterine bleeding) | | | | [phone] | | | +--------+---------+ + + + [...] + + + | Blood Pressure | 100/80 | 09/13/2019 7:08 AM | | | | | PST | | + + + + + | Pulse | 72 | 09/13/2019 7:08 AM | | | | | PST | | + + + + + | Temperature | 36.8 C (98.3 F) | 09/13/2019 7:08 AM | | | | | PST | | + + + + + | Respiratory Rate | - | - | | + + + + + | Oxygen Saturation | 96% | 09/13/2019 7:08 AM | | | | | PST | | + + + + + | Inhaled Oxygen | - | - | | | Concentration | | | | + + + + + | Weight | 94.1 kg (207 lb 7.3 | 09/13/2019 7:08 AM | | | | oz) | PST | | + + + + + | Height | - | - | | + + + + + | Body Mass Index | 28.93 | 08/23/2019 11:52 AM | | | | | PST | | + + + + + documented in this encounter Patient Instructions Patient Instructions Steff Hightower MD - 09/13/2019 7:00 AM PSTFormatting of this note mi ght be different from the original. Do You Have Diabetes? Diabetes is a condition in which your body has trouble using a sugar called glucose for maria del rosario rgy. As a result, the sugar level in your blood becomes too high. Diabetes is a chronic (lif elong) condition. Left untreated, it can result in major health problems (complications) or serious life-threatening conditions such as ketoacidosis. Signs of diabetes Do any of the following questions apply to you? If so, see your healthcare provider. Do you feel tired all the time? Do you urinate often? Do you feel thirsty or hungry all the time? Are you losing weight for no reason? Do cuts and bruises heal slowly? Do you have numbness or tingling in your fingers or toes? Do you have blurry vision? What puts you at risk? People of all backgrounds can get diabetes. More often, though, it affects s, [place] Americans, Hispanics, Americans, and [place] Islanders. Other factors that i ncrease risk include: A family history of diabetes Being overweight Being over age 40 Having had gestational diabetes (diabetes during ) Not enough physical activity If you take certain medicines Why worry about diabetes? Reasons include the following: Diabetes keeps your body from turning food into energy. Diabetes can cause problems with your eyes, kidneys, nerves, and feet. It can also hurt your heart and blood vessels. Once you get diabetes, it won t go away. See your healthcare provider for a checkup if you have any of the signs or risks listed abo ve. Date Last Reviewed: 03/12/201619995356-6035 [employer]. [address] [place] [address]. All righ ts reserved. This information is not intended as a substitute for professional medical care. Always follow your healthcare professional's instructions. documented in this encounter Progress Notes Steff Hightower MD - 09/13/2019 7:00 AM PST Subjective: Patient ID: Mariella Obregon is a 29 y.o. female. Chief Complaint Patient presents with Blood Sugar Problem Vaginal Bleeding HPI 1) Patient presents to clinic C/O "low blood sugars". She has never been diagnosed with diabetes, but reports "she is hypoglycemic". She spoke with Robb Cash over the weekend on Thursday09/10/2019 and was advised to com e in and be screened for diabetes. Patient has a glucometer at home which she is using. She reports her lowest reading was 85 in between breakfast and lunch, when her sugars are this low she reports her toes start to t chrissy and she gets headaches. (?) She reports having tunnel vision. She reports tingling in the feet, fingers and lips, tunn el vision, everything seems dark around her and dizziness, light sensitivity and nausea. Kati rasmussen reports having these symptoms since college days but now she bought a meter and can measur e her sugars; she reports "I have been able to control this with diet before "... She reports that diabetes runs in her family on both her maternal and paternal grandmothers , so a paternal aunt. Her father at age 63 of an SC and his doctor was suspecti ng diabetes but never got to test him on time. 2) spotting Her LMP was 10/29/2018 and she has been spotting since thanksgiving 09/08/2019. She has irre gular periods, which she is on control to help regulate them. She reports she has PCO S. Upon questioning she discloses that she has stopped taking her last OCPs pill on 09/01/2019 and did not start the next package because she did not know she had to... (?), She keeps r epeating that "nobody told me I had to continue "... So I took the time to explain her OCPs work and that she has not to stop taking between pac kages her control, and to anticipate some spotting and bleeding until she can start th e next package instructed to resume on 09/29/2019. She has a food aide in [place] which is Dr. Benites and she has a scheduled appointment n ext week to follow-up with him. Past Medical History: Diagnosis Date Acute non-recurrent [...] Dispense Refill desogestrel-ethinyl estradiol (AZURETTE) 0.15-0.02/0.01 MG (01/03) per [...] capsule Take 20 mg by mouth nightly. No current facility-administered medications for this visit. Review of Systems Constitutional: Negative for fever and malaise/fatigue. HENT: Negative for congestion, sore throat and tinnitus. Eyes: Negative for blurred vision and pain. Respiratory: Negative for cough and shortness of breath. Cardiovascular: Negative for chest pain, palpitations and leg swelling. Gastrointestinal: Negative for abdominal pain, constipation, diarrhea, heartburn, nausea an d vomiting. Genitourinary: Negative for dysuria. Musculoskeletal: Negative for back pain, joint pain and myalgias. Skin: Negative for rash. Neurological: Positive for dizziness and tingling. Negative for weakness and headaches. Psychiatric/Behavioral: Negative for depression. The patient is not nervous/anxious and palafox s not have insomnia. Objective: BP 100/80 | Pulse 72 | Temp 36.8 C (98.3 F) (Temporal) | Wt 94.1 kg (207 lb 7.3 oz) | LMP 08/31/2019 (Approximate) | SpO2 96% | No | BMI 28.93 kg/m Physical Exam General Appearance: Alert, cooperative, [...] nodes normal Neurologic: Gait normal Assessment/Plan: 1. Paresthesias - CBC with Differential; Future; Expected date: 09/13/2019 - Comprehensive Metabolic Panel; Future; Expected date: 09/13/2019 - Lipid Panel; Future; Expected date: 09/13/2019 - Hemoglobin A1C; Standing 2. Family history of diabetes mellitus - Glucose Tolerance Test, 4Hr; Future 3. DUB (dysfunctional uterine bleeding) Overview: This is breakthrough bleeding from taking inappropriately her OCPs Assessment & Plan: I explained to her how to take her oral contraceptives and instructed her to continue the n ext package the next day after she completes the previous one. She is scheduled with her food aide to follow-up next week. We are going to request records; she reports she has PCOS The patient was satisfied with the care received and voiced understanding of the issues dis cussed and the plan. No follow-ups on file. Electronically signed by Steff Hightower MD Portions of this report were transcribed using [employer] voice recognition soft miranda. Although effort was made in correcting the errors; grammatical and sound alike errors may still be present. documented in this enc ounter Miscellaneous Notes Assessment & Plan Note - Steff Hightower MD - 09/13/2019 9:24 AM PSTAssociated Problem(s): DUB (dysfunctional uterine bleeding)I explained to her how to take her oral contraceptives and instructed her to continue the next package the next day after she completes the previou s one. She is scheduled with her food aide to follow-up next week. We are going to request records; she reports she has PCOS documented in this encounter Plan of Treatment + +------+--------+ + + | Name | Type | Priori | Associated Diagnoses | Order Schedule | | | | ty | | | + +------+--------+ + + | Hemoglobin A1C | Lab | Routin | Paresthesias | Every quarter for 4 | | | | e | | Occurrences starting | | | | | | 09/13/2019 until | | | | | | 09/12/2020, 1 | | | | | | completed | + +------+--------+ + + documented as of this encounter Results Hemoglobin A1C (09/13/2019 7:40 AM PST) + +-------+ + + + | Component | Value | Ref Range | Performed | Pathologist | | | | | At | Signature | + +-------+ + + + | Hemoglobin | 5.1 | 4.3 - 6.0 % | [facility] | | | A1c | | | [facility] | | | | | [facility] | | | | | [facility] - | | | | | | LAB[facility]ATORY | | + +-------+ + + + | Estimated | 100 | mg/dL | [facility] | | | Average | | | [facility] | | | Glucose | | | MEDICAL | | | [...] + | [facility] | [address] | [place] | [phone] | | [facility] | | [address] | | | - LABORATORY | | | | + + + + + Lipid Panel (09/13/2019 7:40 AM PST) + +--------+ + + + | Component | Value | Ref Range | Performed | Pathologist | | | | | At | Signature | + +--------+ + + + | Triglycerid | 124 | 30 - 150 mg/dL | [facility] | | | es | | | [facility] | | | | | [facility] | | | | | [facility] | | | | | | [facility] | | + +--------+ + + + | Cholesterol | 168 | 150 - 200 mg/dL | [facility] | | | | | | [facility] | | [facility] | | | | | [facility] | | | | | | [facility] | | + +--------+ + + + | HDL | 31 (L) | 40 - 60 mg/dL | [facility] | | | | | | [facility] | | | | | [facility] | | | | | [facility] | | | | | | [facility] | | + +--------+ + + + | Chol/HDL | 5.4 | | [facility] | | | Ratio | | | [facility] | | | | | | [facility] | | | | | [facility] | | | | | | [facility] | | + +--------+ + + + | LDL, | 112 | <130 mg/dL | [facility] | | | Calculated | | | [facility] | | | | | [facility] | | | | | | [facility] | | | | | | [facility] | | + +--------+ + + + + + | Specimen | + + | Blood | + + + + + + + | Performing | Address | City/State/Zipcode | Phone Number | | Organization | | | | + + + + + | [facility] | [address] | [place] | [phone] | | [facility] | | [address] | | | [facility] | | | | + + + + + Comprehensive Metabolic Panel (09/13/2019 7:40 AM PST) + + + + + + | Component | Value | Ref Range | Performed | Pathologist | | | | | At | Signature | + + + + + + | Na | 140 | 136 - 145 | [facility] | | | | | mmol/L | [facility] | | | | [facility] | | | | | [facility] | | | | | | [facility] | | + + + + + + | K | 4.2 | 3.5 - 5.1 | [facility] | | | | | mmol/L | [facility] | | | | | | [facility] | | | | | | [facility] | | | | | | [facility] | | + + + + + + | Cl | 102 | 98 - 107 mmol/L | [facility] | | | | | | [facility] | | | | | [facility] | | | | | [facility] | | | | | | [facility] | | + + + + + + | CO2 | 28 | 21 - 32 mmol/L | [facility] | | | | | | [facility] | | [facility] | [facility] | | | | | [facility] | | | | | | [facility] | | + + + + + + | Anion Gap | 10 | 2 - 16 mmol/L | [facility] | | | | | | [facility] | | | | | [facility] | | | | | [facility] | | | | | | [facility] | | + + + + + + | Glucose | 97 | 74 - 106 mg/dL | [facility] | | | | | | [facility] | | | | | [facility] | | | | | | [facility] | | | | | | [facility] | | + + + + + + | BUN | 11 | 7 - 18 mg/dL | [facility] | | | | | | [facility] | | [facility] | [facility] | | | | | [facility] | | | | | | [facility] | | + + + + + + | Creatinine | 0.84 | 0.55 - 1.02 | [facility] | | | | | mg/dL | [facility] | | | | | [facility] | | | | | | [facility] | | | | | | [facility] | | + + + + + + | eGFR, | >60Comment: GLOMERULAR | >=60 | [facility] | | | non- | FILTRATION | mL/min/1.73m2 | [facility] | | | [place] Citizen | RATE,ESTIMATED | | MEDICAL | | | | mL/min/1.69k0Fzdp than | | PARK | | | | 60 Chronic kidney | | LABORATORY | | | | disease,if found over a | | | | | | 3-month period.Less than | | | | | | 15 Kidney failureFor | | | | | | | | | | | | Americans,multiply the | | | | | | calculated GFR by 1.21. | | | | | | | | | | + + + + + + | Calcium | 9.2 | 8.5 - 10.1 | [facility] | | | | | mg/dL | [facility] | | | | | | [facility] | | | | | | [facility] | | | | | | [facility] | | + + + + + + | Albumin | 4.0 | 3.4 - 5.0 g/dL | [facility] | | | | | | [facility] | | | | | | [facility] | | | | | | [facility] | | | | | | [facility] | | + + + + + + | Bilirubin | 0.4 | 0.2 - 1.0 mg/dL | [facility] | | | Total | | | [facility] | | | | | | [facility] | | | | | | [facility] | | | | | | [facility] | | + + + + + + | Total | 7.8 | 6.4 - 8.2 g/dL | [facility] | | | Protein | | | [facility] | | | | | | [facility] | | | | | | [facility] | | | | | | [facility] | | + + + + + + | AST | 11 (L) | 15 - 37 U/L | [facility] | | | | | | [facility] | | | | | [facility] | | | | | | [facility] | | | | | | [facility] | | + + + + + + | ALT | 19 | 14 - 59 U/L | [facility] | | | | | | [facility] | | | | | | [facility] | | | | | | [facility] | | | | | | LAB[facility] | | + + + + + + | Alkaline | 58 | 46 - 116 U/L | [facility] | | | Phosphatase | | | [facility] | | | | | | [facility] | | | | | | [facility] | | | | | | [facility] | | + + + + + + | Globulin | 3.8 | 2.1 - 3.8 g/dL | [facility] | | | | | | [facility] | | | | | [facility] | | | | | | [facility] | | | | | | [facility] | | + + + + + + | Albumin/Sayra | 1.1 | 0.8 - 2.0 | [facility] | | | bulin Ratio | | | [facility] | | | | | | [facility] | | | | | | [facility] | | | | | | [facility] | | + + + + + + | BUN/Creatin | 13.1 | | [facility] | | | ine Ratio | | | [facility] | | | [...] + + | [facility] | [address] | [place] | [phone] | | [facility] | | [address] | | | [facility] | | | | + + + + + CBC with Differential (09/13/2019 7:40 AM PST) + + + + + + | Component | Value | Ref Range | Performed | Pathologist | | | | | At | Signature | + + + + + + | White Blood | 7.5 | 4.0 - 11.0 K/uL | [facility] | | | Cells | | | [facility] | | | | | | [facility] | | | | | | [facility] | | | | | | [facility] | | + + + + + + | Red Blood | 4.76 | 3.70 - 5.20 | [facility] | | | Cells | | M/uL | [facility] | | | | | | [facility] | | | | | | [facility] | | | | | | [facility] | | + + + + + + | Hemoglobin | 14.2 | 11.5 - 16.0 | [facility] | | | | | g/dL | [facility] | | | | | | [facility] | | | | | | [facility] | | | | | | [facility] | | + + + + + + | Hematocrit | 42.6 | 34.0 - 47.0 % | [facility] | | | | | | [facility] | | | | | [facility] | | | | | | [facility] | | | | | | [facility] | | + + + + + + | MCV | 89.5 | 83.0 - 101.0 fL | [facility] | | | | | | [facility] | | | | | [facility] | | | | | | [facility] | | | | | | [facility] | | + + + + + + | MCH | 29.8 | 28.0 - 35.0 pg | [facility] [...] + + + + | RDW-CV | 12.7 | <15.0 % | [facility] | | | | | | [facility] | | | | | [facility] | | | | | | [facility] | | | | | | [facility] | | + + + + + + | RDW-SD | 42.2 | 35.1 - 46.3 fL | [facility] | | | | | | [facility] | | [facility] | [facility] | | | | | | [facility] | | | | | | [facility] | | + + + + + + | Platelet | 298 | 140 - 440 K/uL | [facility] | | | Count | | | [facility] | | | [facility] | [facility] | | | | | | [facility] | | | | | | [facility] | | + + + + + + | MPV | 9.5 | 6.5 - 12.4 fL | [facility] | | | | | | [facility] | | [facility] | | [facility] | | | | | | [facility] | | | | | | [facility] | | + + + + + + | % | 61.1 | 45.0 - 82.0 % | [facility] | | | Neutrophils | | | [facility] | | | | | | [facility] | | | | | | [facility] | | | | | | [facility] | | + + + + + + | % | 31.0 | 20.0 - 45.0 % | [facility] | | | Lymphocytes | | | [facility] | | | | | | [facility] | | | | | | [facility] | | | | | | [facility] | | + + + + + + | % Monocytes | 7.1 | 4.0 - 12.0 % | [facility] [...] % Basophils | 0.7 | 0.0 - 1.0 % | [facility] [...] + + + + | Absolute | 4.59 | 1.80 - 8.50 | [facility] | | | Neutrophils | | K/uL | [facility] | | | | | [facility] | | | | | | [facility] | | | | | | [facility] | | + + + + + + | Absolute | 2.33 | 0.60 - 3.20 | [facility] | | | Lymphocytes | | K/uL | [facility] | | | | | [facility] | | | | | | [facility] | | | | | | [facility] | | + + + + + + | Absolute | 0.53 | 0.00 - 1.00 | [facility] | [...] + + + + | Absolute | 0.05 | 0.00 - 0.10 | [facility] | [...] | + + + + + | [facility] | [address] | [place], [place] | [phone] | | [facility] | | [address] | | | [facility] | | | | + + + + + documented in this encounter Visit Diagnoses + + | Diagnosis | + + | Paresthesias Disturbance of skin sensation | + + | Family history of diabetes mellitus | + + | DUB (dysfunctional uterine bleeding) Other disorder of menstruation and other | | abnormal bleeding from female genital tract | + + documented in this encounter
--- OUTSIDE RECORDS SUMMARY | ~2020-05-09 | XMS | Encounter Summary ---
Demographics + + + | Address | [address] | | | [place] [address] | + + + | Home Phone | | + + + | Preferred Language | Unknown | + + + | Marital Status | | + + + | Mandaeism Affiliation | Unknown | + + + | Race | Unknown | + + + | Ethnic Group | Unknown | + + + Author + + + | Author | [facility] | | | and [place] | + + + | Organization | [facility] | | | and [place] [...] Team Providers + +------+ + | Care Insurance Loss Control Surveyor Name | Role | Phone | + [...] + + | 08/02/ | Office | [facility] | Adilia Cash, | Generalized anxiety | | 2019 | Visit | [facility]IC[facility] [place] | [employer] YOU[employer] SUPERVIS[employer] [address] | disorder (Primary | | | | [address] | [place] | Dx); Chest mass; | | | | [place] | [address] | Leukocytosis, | | | | [address] | | unspecified type | | | | [phone] | | | +--------+---------+ + + + [...] ell being. Phone number for Crisis HelpLine ([phone]) or go to ED for evaluation in the event you become a harm to yourself or anyone else. Crisis text line also available at [phone] Chest Wall Pain: Costochondritis The chest pain [...] by your healthcare provider Date Last Reviewed: 09/11/201619997682-3385 [employer]. [address] [place] [address], [place] [address]. All righ ts reserved. This information is [...] to cope by practicing relaxation and taking Dexter's Wort. Dc'd during . Mood is worsening. On migue days she get out and goes for walks with the boys. works [employer], so sle eps during the day. Sleeping well. Has not tried counseling, willing to consider, moving to [place] in March and wants to start then. Gets short breaks from the boys. No SI/HI. Has not been on medication for mood and would like to try. First day of LMP last week. I have reviewed notes and lab from ED visit where she was seen for allergy symptoms. These have improved. 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 I have reviewed t hat note, CT report showing mucosal thicken and lab results showing normal chem, and normal blood counts with the exception of mildly elevated wbc count. PHQ9 Depression scale: Date of Last Screening Total Score 6 (08/02/19 0900) (Printable questionnaires in Turkish) Interpretation of Total Score: 1-4 = Minimal [...] or Chronic Pain tab; printable questionnaires in Turkish ) Interpretation of Total Score: 8-9 = [...] has been changed since signin Order Audit [place] desogestrel-ethinyl estradiol (AZURETTE) 0.15-0.02/0.01 MG (01/03) per tablet (Taking) Jordan e 1 tablet by mouth Daily. fluticasone (FLONASE) 50 mcg/nasal spray (Taking) 1 spray by Nasal route Daily. montelukast (SINGULAIR) 10 mg tablet (Taking) Take 1 tablet by mouth Daily. Number of times this order has been changed since signin Order Audit [place] Past Medical History She has a past [...] Review of Systems See HPI. Objective: Vitals: 08/02/19921 BP: 126/76 Pulse: 90 Resp: 20 Temp: [...] HelpLine ) and informed to go to [facility] ED for psych evaluation in the [...] made to ensure accuracy; however, inadvertent computerized vegetable i farmworker errors may be pre sent. documented in [...] | | 25 Hydroxy | | | STKarla BELLO | | | | | | [...] | [address] | [place] | [phone] | | [facility] | | [address] | | | - LABORATORY | | [...] | + + + + + | JAVIER | [address] | [place] | [phone] | | [facility] | | [address] | | | [facility] | | | | + + + + + CBC w/ Auto Differential (08/02/2019 10:29 AM PDT) + + + + + + | Component | Value | Ref Range | Performed | Pathologist | | | | | At | Signature | + + + + + + | White Blood | 9.9 | 4.0 - 11.0 K/uL | [facility] | | | Cells | | | [facility] | | | | | | [facility] | | | | [facility] | | | | | | LABORATORY | | + + + + + + | Red Blood | 4.81 | 3.70 - 5.20 | [...] | + + + + + | JAVIER | [address] [place] | [place] | [phone] | | [facility] | | [phone] | | | [facility] | | [...]
--- OUTSIDE RECORDS SUMMARY | ~2020-05-09 | XMS | Encounter Summary ---
Demographics + + + | Address | [address] | | | [place] [address] | + + + | Home Phone | | + + + | Preferred Language | Unknown | + + + | Marital Status | | + + + | Baptism Affiliation | Unknown | + + + | Race | Unknown | + + + | Ethnic Group | Unknown | + + + Author + + + | Author | [facility] | | | and [place] | + + + | Organization | [facility] | | | and [place] [...] Team Providers + +------+ + | Care Live Out Nanny Name | Role | Phone | + +------+ + | Steff Hightower MD | PCP | | + +------+ + Reason for Visit +--------+--------+ + | Reason | Onset | Comments | | | Date | | +--------+--------+ + | Lump | 07/13/ | breast bone | | | 2018 | | +--------+--------+ + Encounter Details +--------+ + + + + | Date | Type | Department | Care Team | Description | +--------+ + + + + | 07/13/ | Telephone | [facility] | Steff Hightower MD | Lump (breast bone) | | 2019 | | MEDICINE [place] | [address] | | | | | [address] | [place] | | | | | [place] | [address] | | | | | [address] | | | | | | [phone] | | | +--------+ + + + [...] this encounter Miscellaneous Notes Telephone Encounter - Josephine He RN - 07/13/2019 2:18 PM PDTCalled patient estella d told her that there are lymph nodes in that area and around the heart so it is likely that it is a lymph node she is feeling. Advised her to watch and wait. Once she and her two boys are totally better the lymph node should resolve. It may take 7-10 days for it to resolve. If it hasn't resolved then to call and schedule an appointment. Patient agrees to this plan. elephone Encounter - Josephine He RN - 07/13/2019 11: 51 AM PDTPatient calls stating she was seen at [facility] ER 2 weeks ago for asthma allergy issues. 1 week ago she noticed a "pea sized" lump at the end of her of her sternum. It feels like a swollen lymph node. She states she has been sick and her two boys have been sick so she wondered if the lump co uld be related. The ER doctor told her that all her lab work looked great. She had an Urgent Care provider look at the swollen lump and they told her that it wasn't w orrisome. docume nted in this encounter Plan of Treatment Not on filedocumented as of this encounter Visit Diagnoses Not on filedocumented in this encounter
--- OUTSIDE RECORDS SUMMARY | ~2020-05-09 | XMS | Encounter Summary ---
Demographics + + + | Address | [address] | | | [place] [address] | + + + | Home Phone | | + + + | Preferred Language | Unknown | + + + | Marital Status | | + + + | Scientologist Affiliation | Unknown | + + + | Race | Unknown | + + + | Ethnic Group | Unknown | + + + Author + + + | Author | and Services [facility] | | | and [place] | + + + | Organization | and [facility] | | | and [...] Team Providers + +------+ + | Care Brilliandeer Lopper Name | Role | Phone | + +------+ + | Steff Hightower MD | PCP | | + +------+ + Reason for Visit +---------+--------+ + | Reason | Onset | Comments | | | Date | | +---------+--------+ + | Results | 08/05/ | | | | 2018 | | +---------+--------+ + Encounter Details +--------+ + + + + | Date | Type | Department | Care Team | Description | +--------+ + + + + | 08/05/ | Telephone | [facility] | Steff Hightower MD | Results | | 2019 | | [facility] [place] | [address] | | | | | [address] | [place] | | | | | [place] | [address] | | | | | [address] | | | | | | [phone] | | | +--------+ + + + [...] this encounter Miscellaneous Notes Telephone Encounter - Adilia Cash ARNP - 08/05/2019 3:17 PM PDTCall to patient shakatin g ultrasound result that there are no soft tissue abnormality seen in the area of concern. She verbalizes understanding. She thinks she may have pulled a muscle and that is why she is having pain. Says she is rodriguez ving pain of her shoulders back and hips. She would like appointment for this. I have enco uraged her to schedule an appointment to see her PCP for this, if PCP does not have openings I am happy to see her. P DTTelephone Encounter - Gauri Parsons CMA - 08/05/2019 2:53 PM PDTResults are in Grayc en's in basket ele phone Encounter - Josephine He RN - 08/05/2019 1:15 PM PDTPatient called again r equesting her ultrasound results from [facility]. Told her Adilia is watching for them. Called per patient's request to make sure [facility] has our fax number. Called and gave our fax number to [facility] records and they said they would fax t he ultrasound results right over.Electronically signed by Josephine He RN at 08/05 1:42 PM PDTTelephone Encounter - Adilia Cash ARNP - 08/05/2019 10:53 AM PDTI have not received her ultrasound results, please see if they have been sent, or if they need to be thank you elephone Encounter - Lavonne Nunes RN - 08/05/2019 10:45 AM PDTPatient calls in wanting to kno w If Adilia has received the ultrasound results. documented in this encounter Plan of Treatment Not on filedocumented as of this encounter Visit Diagnoses Not on filedocumented in this encounter"
--- OUTSIDE RECORDS SUMMARY | ~2020-05-09 | XMS | Encounter Summary ---
Demographics + + + | Address | [address] | | | [place] [address] | + + + | Home Phone | | + + + | Preferred Language | Unknown | + + + | Marital Status | | + + + | Zoroastrian Affiliation | Unknown | + + + | Race | Unknown | + + + | Ethnic Group | Unknown | + + + Author + + + | Author | [facility] | | | and [place] | + + + | Organization | [facility] | | | and [place] [...] Team Providers + +------+ + | Care Remote Recruiter Name | Role | Phone | + +------+ + | Steff Hightower MD | PCP | | + +------+ + Reason for Visit +---------+ + | Reason | Comments | +---------+ + | Anxiety | | +---------+ + Encounter Details +--------+---------+ + + + | Date | Type | Department | Care Team | Description | +--------+---------+ + + + | 12/06/ | Office | [facility] | Steff Hightower MD | Generalized anxiety | | 2020 | Visit | [facility]IC[facility] [place] | [address] | disorder (Primary | | | | [address] | [place] | Dx) | | | | [place] | [address] | | | | | [address] | | | | | | [phone] | | | +--------+---------+ + + + [...] encounter Patient Instructions Patient Instructions Yudith Zamarripa, Humanities Professor - 12/06/2019 1:45 PM PSTReturn if symptoms worsen or fail to [...] healthcare provider or go to a local [employer] e and review the many books and tapes available on this subject. Follow-up care If you feel that your anxiety is not responding to self-help measures, contact your [facility] are provider or make an appointment [...] and mild pain reliever Date Last Reviewed: 07/12/201719990488-6151 [employer]. [address] [place] [address], [place] [address]. All righ ts reserved. This information is not intended as a substitute for professional medical care. Always follow your healthcare professional's instructions. Understanding Generalized Anxiety Disorder (KAY) Anxiety can fill you with worry and fear. Sometimes anxiety is healthy. It alerts you to a potential threat and gets you to respond and take action. But for some people, anxiety gets so bad it causes problems in daily life. If you find yourself in a constant state of anxiety , you may have an anxiety disorder calledgeneralized anxiety disorder (KAY). Speak with yo healthcare provider or mental health professional to learn more. He or she can help. What is generalized anxiety disorder? KAY means that you are worrying constantly and can t control the worrying. Healthcare pro viders diagnose KAY when your worrying happens on most days and for at least 6 months. With KAY, you might worry about money, your family and friends, work, or the world in gener al. You might not even be sure what you're anxious about. But whatever it is, you have an in tense fear that the worst will happen. These feelings never really go away. In people age 65 and older, KAY is one of the most commonly diagnosed anxiety disorders. Many times it occ urs with depression. This constant worry affects your quality of life and makes it hard to f unction. KAY can cause physical symptoms, too. What are common symptoms of generalized anxiety disorder? People with KAY often think they have a physical illness. The disorder can cause symptoms, such as: Excessive worry that interferes with daily activities and lasts for at least 6 months Muscle tension, especially in the neck and shoulders Nausea and stomach problems Frequent headaches Feeling lightheaded Restlessness, trouble sleeping Feeling irritable and on edge all the time How can generalized anxiety disorder be treated? KAY can be treated with medicine or therapy (also called counseling), or both. Medicine hel ps to reduce symptoms, so you can continue with your daily routine. Therapy helps you unders tand the cause of your anxiety and learn how to manage it. Both forms of treatment help you deal with problems that anxiety causes in your life. This helps you to be healthier and happ ier. Date Last Reviewed: 02/09/201719999962-[address] [employer] [place] [address], [place] [address]. All righ ts reserved. This information is not intended as a substitute for professional medical care. Always follow your healthcare professional's instructions. documented in this encounter Progress Notes Steff Hightower MD - 12/06/2019 1:45 PM PST Subjective: Patient ID: Mariella Obregon is a 29 y.o. female. Chief Complaint Patient presents with Anxiety HPI Patient presents to clinic for follow up on depression. She was seeing Schuyler Lion in [place], [place] for about 1 month. He explained to her that she does not have depression, only anx iety. He told patient he wasn't sure she needed medication to treat her anxiety. He advised her to get her allergies under control. She has an appointment next week with her senior group manager Dr. Schuyler Ashton in [place], [place]. She will be moving to [place] in a few months. The meclizine does not help her for her vertigo. Depression/Anxiety: Patient is here for follow-up of Depression and anxiety. Onset: ongoing She has the following depression symptoms: patient did not check any of her phq9 She denies the following symptoms: anhedonia, depressed mood, difficulty concentrating, fat igue, feelings of worthlessness/guilt, hopelessness, hypersomnia, impaired memory, insomnia, psychomotor agitation, psychomotor retardation, recurrent thoughts of , suicidal attem pt, suicidal thoughts with specific plan and suicidal thoughts without plan She complains of the following anxiety symptoms: feeling nervous, worrying too much and eas royer annoyed or irritable Symptoms are improving Sleep Disturbance: No Are you currently in counseling: yes she has been seen Schuyler Lion in [place], [place]. He to ld her that she does not need medication for her anxiety. Treatments Tried: none Have they been effective: No PHQ9 SCORE Office Visit from 12/06/2019 in [facility] Office Visit from 11/24 in [facility] Office Visit from 10/17/2019 in [facility] Office Visit from 09/21/2019 in [facility] PHQ-9 Total Score (Patient Health Questionnaire) 0 6 19 6 ANXIETY/STRESS SCORE Office Visit from 12/06/2019 in [facility] Office Visit from 11/24 in [facility] Office Visit from 10/17/2019 in [facility] Office Visit from 09/21/2019 in [facility] KAY-7 Score (General Anxiety Disorder) 3 12 16 0 Past Medical History: Diagnosis Date Abnormal [...] Current Outpatient Medications Medication Sig Dispense Refill cyanocobalamin (VITAMIN B-12) 50 MCG tablet Take [...] spray 1 spray by Nasal route Daily. magnesium oxide (MAG-OX) 400 mg tablet Take 400 mg by mouth Daily. Triamcinolone Acetonide (NASACORT ALLERGY 24HR NA) 1 spray by Nasal route 2 times daily . No current facility-administered medications for this visit. Review of Systems Constitutional: Negative for fever and malaise/fatigue. HENT: Positive for congestion and sinus pain. Negative for sore throat and tinnitus. Eyes: Negative. Negative for blurred vision and pain. Respiratory: Negative. Negative for cough and shortness of breath. Cardiovascular: Negative. Negative for chest pain, palpitations and leg swelling. Gastrointestinal: Negative. Negative for abdominal pain, constipation, diarrhea, heartburn , nausea and vomiting. Genitourinary: Negative. Negative for dysuria. Musculoskeletal: Negative. Negative for back pain, joint pain and myalgias. Skin: Negative for rash. Neurological: Positive for dizziness. Negative for tingling, weakness and headaches. Psychiatric/Behavioral: Negative. Negative for depression. The patient is not nervous/anxi ous and does not have insomnia. Objective: BP 120/62 | Pulse 87 | Temp 36.5 C (97.7 F) (Temporal) | Wt 97.4 kg (214 lb 11.7 oz) | LMP 10/31/2019 (Approximate) | SpO2 100% | No | BMI 29.95 kg/m Physical Exam General Appearance: Alert, cooperative, [...] - increased panic attacks Assessment & Plan: Will not start medications at this time. Patient given a copy of her [facility] report. She will be moving to [place] in a few months. Discussed CBT and mental health counseling as needed. Reviewed the concept of physical symptoms for emotional anxiety. Today's scores: PHQ9 was 0 GAD7 was 3 The patient was satisfied with the care received and voiced understanding of the issues dis cussed and the plan. Return if symptoms worsen or fail to improve. Electronically signed by Steff Hightower MD Portions of this report were transcribed using [employer] voice recognition soft miranda. Although effort was made in correcting the errors; grammatical and sound alike errors may still be present. d ocumented in this encounter Miscellaneous Notes Assessment & Plan Note - Yudith Zamarripa, Humanities Professor - 12/06/2019 2:06 PM PSTAss ociated Problem(s): Generalized anxiety disorderWill not start medications at this time. Pat sal given a copy of her [facility] report. She will be moving to [place] in a few months. Discussed CBT and mental health counseling as needed. Reviewed the concept of physical symptoms for emotional anxiety. Today's scores: PHQ9 was 0 GAD7 was 3 documented i n this encounter Plan of Treatment Not on filedocumented as of this encounter Visit Diagnoses + + | Diagnosis | + + | Generalized anxiety disorder - Primary | + + documented in this encounter
--- OUTSIDE RECORDS SUMMARY | ~2020-05-09 | XMS | Encounter Summary ---
Demographics + + + | Address | [address] | | | [place] [address] | + + + | Home Phone | | + + + | Preferred Language | Unknown | + + + | Marital Status | | + + + | Restorationism Affiliation | Unknown | + + + | Race | Unknown | + + + | Ethnic Group | Unknown | + + + Author + + + | Author | [facility] | | | and [place] | + + + | Organization | [facility] | | | and [...] Team Providers + +------+ + | Care Director Recreation Center Name | Role | Phone | + +------+ + | Steff Hightower MD | PCP | | + +------+ + Reason for Visit +---------+--------+ + | Reason | Onset | Comments | | | Date | | +---------+--------+ + | Results | 08/03/ | | | | 2018 | | +---------+--------+ + Encounter Details +--------+ + + + + | Date | Type | Department | Care Team | Description | +--------+ + + + + | 08/03/ | Telephone | [facility] | Steff Hightower MD | Results | | 2019 | | [facility] [place] | [address] | | | | | [address] | [place] | | | | | [place] | [address] | | | | | [address] | | | | | | [phone] | | | +--------+ + + + [...] this encounter Miscellaneous Notes Telephone Encounter - Gauri Parsons CMA - 08/05/2019 2:54 PM PDTResults are in grayce n's desk elephone E christie - Katty Carvalho - 08/04/2019 4:04 PM PDTSandra, please print the forms th at need to be re-faxed. Thank you elephone Encounter - Anastasia Persaud - 08/03/2019 3:24 PM PDTPatient called and states that [facility], can you please re-fax it. elephone Encounter - Laura Staley - 08/03/2019 2: 33 PM PDTOrder has been faxed TTelephone Encounter - Gauri Parsons CMA - 08/03/2019 10:38 AM PDTCalled patient and re layed message with verbal understanding. Order printed and sent to the front to be faxed to [facility] Radiology dept. [phone]. Electronically signed by Gauri Parsons CMA at 1 10:41 AM PDTTelephone Encounter - Gauri Parsons CMA - 08/03/2019 10:30 AM PDT ----- Message from MERCEDEZ Ramos sent at 08/02/2019 16:56 PDT ----- Please contact patient/guardian about message below: Thyroid function is normal. Normal vitamin D level. Overall normal blood counts. White blood cell count is no longer elevated. I have ordered an ultrasound of her trunk for further evaluation of the mass that she is pe rceived of her chest. This will need to be printed and faxed to [facility] so that she c an be scheduled. documented in this encounter Plan of Treatment Not on filedocumented as of this encounter Visit Diagnoses Not on filedocumented in this encounter"
--- OUTSIDE RECORDS SUMMARY | ~2020-05-09 | XMS | Encounter Summary ---
Demographics + + + | Address | [address] | | | [place] [address] | + + + | Home Phone | | + + + | Preferred Language | Unknown | + + + | Marital Status | | + + + | Jainism Affiliation | Unknown | + + + | Race | Unknown | + + + | Ethnic Group | Unknown | + + + Author + + + | Author | [facility] | | | and [place] | + + + | Organization | [facility] | | | and [...] Team Providers + +------+ + | Care Patrol Police Lieutenant Name | Role | Phone | + [...] [place] | | | | | | [address] | [address] | | | | | | Phone: | Phone: | | | | | | [phone] | [phone] | | | | | | Fax: | Fax: | | | | | | [phone] | [phone] | +--------+ + + + + + Reason for Visit + + + | Reason | Comments | + + + | Depression | | + + + Encounter Details +--------+---------+ + + + | Date | Type | Department | Care Team | Description | +--------+---------+ + + + | 08/23/ | Office | [facility] | Steff Hightower MD | Generalized anxiety | | 2019 | Visit | MEDIC[place] | [address] | disorder (Primary | | | | [address] | [place] | Dx); Seasonal | | | | [place] | [address] | allergic rhinitis | | | | [address] | | due to pollen | | | | [phone] | | | +--------+---------+ + + + [...] encounter Patient Instructions Patient Instructions Mee Blanc, CERTIFIED SHORTHAND REPORTER - 08/23/2019 11:30 AM PSTFormatting of this no te might be different from the original. Return in about 1 year (around 08/23/2020), or if symptoms worsen or fail to improve, for A nnual Exam.If you have any questions, please call us [phone]. Appointment reminders by text: Do you have an upcoming appointment? Receive a test reminder! Text the word [employer] to [phone] to opt. in and ask our front desk specialist for more information laron bowman your visit [...] and change your clothes. Date Last Reviewed: 06/12/201619998238-0847 [employer] [address] [place] [address], [place] [address]. All righ ts reserved. This information is [...] teach you skills to help manage anxiety termite inspector. Bu t change doesn t happen right [...] in the long run. Date Last Reviewed: 10/12/201619991931-7948 [employer] [address] [place] [address]. All righ ts reserved. This information is [...] seen by Dr. Howard at ENT at [facility] and did not have a goo d experience seeing. "He would not listen to me"... She has been using the netti pot, singular and Zyrtec and would like a referral to an ENT and auto air conditioning installer in [place] Dr. Khoury which we are doing today. [...] PHQ9 SCORE Office Visit from 08/23/2019 in [facility] Office Visit from in [facility] Office Visit from 06/23/2019 in [facility] PHQ-9 Total Score (Patient Health Questionnaire) 1 6 4 ANXIETY/STRESS SCORE Office Visit from 08/23/2019 in [facility] Office Visit from in [facility] KAY-7 Score (General Anxiety Disorder) [...] tablet 0 desogestrel-ethinyl estradiol (AZURETTE) 0.15-0.02/0.01 MG (21/5) per [...] New referral placed for Dr.Steven Ashton in [place] Orders: - ENT, External - AMB Referral The patient was satisfied with the care received and voiced understanding of the issues dis cussed and the plan. Return in about 1 year (around 08/23/2020), or if symptoms worsen or fail to improve, for A nnual Exam. Electronically signed by Steff Hightower MD Portions of this report were transcribed using [employer] voice recognition soft miranda. Although effort was made in correcting the errors; grammatical and sound alike errors may still be present. d ocumented in this encounter Miscellaneous Notes Assessment & Plan Note - Steff Hightower MD - 08/23/2019 12:28 PM PSTAssociated Problem(s): Generalized anxiety disorderFeeling better and improved, continue same medication fluoxetin e 10 mg daily ssessment & Plan Note - Mee Blanc CMA - 08/23/2019 12:11 PM PSTAssociated Problem(s): Seaso nal allergic rhinitis due to pollenNew referral placed for Dr.Steven Ashton in [place], [place].El ectronically signed by Mee Blanc CMA at 08/23/2019 12:14 PM PSTdocumented in this e ncounter Plan of Treatment + + +--------+ + [...]
--- OUTSIDE RECORDS SUMMARY | ~2020-05-09 | XMS | Encounter Summary ---
Demographics + + + | Address | [address] | | | [place] [address] | + + + | Home Phone [...] + | Organization | [facility] | | | and [place] [...] Team Providers + +------+ + | Care Flare Breaker Name | Role | Phone | + +------+ + | Steff Hightower MD | PCP | | + +------+ + Reason for Visit + +--------+ + | Reason | Onset | Comments | | | Date | | + +--------+ + | Records Request | 09/27/ | | | | 2019 | | + +--------+ + Encounter Details +--------+ + + + + | Date | Type | Department | Care Team | Description | +--------+ + + + + | 09/27/ | Telephone | [facility] | Steff Hightower MD | Records Request | | 2019 | | MEDICINE [place] | [address] | | | | | [address] | [place] | | | | | [place] | [address] | | | | | [address] | | | | | | [phone] | | | +--------+ + + + [...] Miscellaneous Notes Telephone Encounter - Yudith Zamarripa Medical Assistant - 09/27/2019 1:23 PM PSTSpoke with lisa from women's clinic in [place]. She will be faxing us a copy of her most recent labs and her last physical exam. documented in this encounter Plan of Treatment Not on filedocumented as of this encounter Visit Diagnoses Not on filedocumented in this encounter"
--- OUTSIDE RECORDS SUMMARY | ~2020-05-09 | XMS | Encounter Summary ---
Demographics + + + | Address | [address] | | | [place] [address] | + + + | Home Phone | | + + + | Preferred Language | Unknown | + + + | Marital Status | | + + + | Mormonism Affiliation | Unknown | + + + | Race | Unknown | + + + | Ethnic Group | Unknown | + + + Author + + + | Author | [facility] | | | and [place] | + + + | Organization | [facility] [...] Team Providers + +------+ + | Care Sales Planning Coordinator Name | Role | Phone | + +------+ + | Steff Hightower MD | PCP | | + +------+ + Reason for Visit +--------+--------+ + | Reason | Onset | Comments | | | Date | | +--------+--------+ + | Other | 09/10/ | | | | 2019 | | +--------+--------+ + Encounter Details +--------+ + + + + | Date | Type | Department | Care Team | Description | +--------+ + + + + | 09/10/ | Telephone | [facility] | Shailesh Adilia, | Other | | 2019 | | [facility] | [place] [address] | | | | | [address] | [place] | | | | | [place] | [address] | | | | | [address] | | | | | | [phone] | | | +--------+ + + + [...] Telephone Encounter - Adilia Cash ARNP - 09/10/2019 12:21 PM PSTCall from patient while application integration architect. she was having some hypoglycemia symptoms and went to the ED in [place] earlier this week. Her bg was in the 120s. Reports hx of low bg while in college. This is worse sin e a incident where she was given methotrexate and developed acute psychosis a couple weeks a go. She is not diabetic. She is not having symptoms currently. She can check her bg at home. Reviewed symptoms and m anagement of hypoglycemia. Advised to schedule follow up with pcp for next week. For severe symptoms she will need to be evaluated in clinic. documented in this encounter Plan of Treatment Not on filedocumented as of this encounter Visit Diagnoses Not on filedocumented in this encounter"
--- OUTSIDE RECORDS SUMMARY | ~2020-05-09 | XMS | Encounter Summary ---
Demographics + + + | Address | [address] | | | [place] [address] | + + + | Home Phone | | + + + | Preferred Language | Unknown | + + + | Marital Status | | + + + | Denominational Affiliation | Unknown | + + + | Race | Unknown | + + + | Ethnic Group | Unknown | + + + Author + + + | Author | [facility] | | | and [place] | + + + | Organization | [facility] | | | and [place] [...] Team Providers + +------+ + | Care Cashier Payments Received Name | Role | Phone | + +------+ + | Steff Hightower MD | PCP | | + +------+ + Reason for Visit +---------+--------+ + | Reason | Onset | Comments | | | Date | | +---------+--------+ + | Anxiety | 11/24/ | | | | 2020 | | +---------+--------+ + Encounter Details +--------+ + + + + | Date | Type | Department | Care Team | Description | +--------+ + + + + | 11/24/ | Telephone | [facility] | Steff Hightower MD | Anxiety | | 2020 | | MEDICINE [place] | [address] | | | | | [address] | [place] | | | | | [place] | [address] | | | | | [address] | | | | | | [phone] | | | +--------+ + + + [...] this encounter Miscellaneous Notes Telephone Encounter - Isabelle Olvera RN - 11/24/2019 8:54 AM PSTPatient calls in this mo rning stating she is struggling with her anxiety. She is currently not taking anything for her depression/anxiety. She was taking Prozac but states it magnified her anxiety. She stopped taking that about a month ago. The only medications she is currently taking are: B12 Vitamin D Pelion 3 Magnesium Open appointment with Dr. Hightower today offered to patient. She accepted. documented in this en counter Plan of Treatment Not on filedocumented as of this encounter Visit Diagnoses Not on filedocumented in this encounter"
--- OUTSIDE RECORDS SUMMARY | ~2020-05-09 | XMS | Encounter Summary ---
Demographics + + + | Address | [address] | | | [place] [address] | + + + | Home Phone | | + + + | Preferred Language | Unknown | + + + | Marital Status | | + + + | Cheondoism Affiliation | Unknown | + + + | Race | Unknown | + + + | Ethnic Group | Unknown | + + + Author + + + | Author | [facility] | | | and [place] | + + + | Organization | [facility] | | | and [place] [...] Team Providers + +------+ + | Care Golf Tournament Consultant Name | Role | Phone | + +------+ + PCP | Unavailable | + +------+ + Reason for Visit +--------+ + | Reason | Comments | +--------+ + | URI | seen at in [place] 4 days ago, given ear drops. pt states | | | its not helping, now both ears are hurting worse and feeling more | | | pressure | +--------+ + Encounter Details +--------+---------+ + + + | Date | Type | Department | Care Team | Description | +--------+---------+ + + + | 06/14/ | Office | [facility] | Venkat Rodas, | Acute non-recurrent | | 2019 | Visit | [facility] | MEDICAL APPLIANCE MAKER [address] | maxillary sinusitis | | | | CARE [address] | [place], [place] | (Primary Dx); | | | | [address] | [address] | Seasonal allergic | | | | [place], [place] | [phone] | rhinitis due to | | | | [address] | | other allergic | | | | [phone] | | trigger | +--------+---------+ + + [...] this encounter Patient Instructions Patient Instructions Venkat Rodas ARNP - 06/14/2019 11:45 AM PDT Acute Sinusitis [...] if you feel better. Date Last Reviewed: 07/12/201619992578-9678 [employer] [address] [place] [address]. All righ ts reserved. This information is [...] the eyes or mouth Date Last Reviewed: 12/10/201619997552-1996 [employer] [address] [place] [address], [place] [address]. All righ ts reserved. This information is not intended as a substitute for professional medical care. Always follow your healthcare professional's instructions. documented in this encounter Progress Notes Venkat Rodas ARNP - 06/14/2019 11:45 AM PDT Subjective Patient ID: Mariella Obregon is a 29 y.o. female. Chief Complaint Patient presents with URI seen at in [place] 4 days ago, given ear drops. pt [...]
--- OUTSIDE RECORDS SUMMARY | ~2020-05-09 | XMS | Encounter Summary ---
Demographics + + + | Address | [address] | | | [place] [address] | + + + | Home Phone [...] | Organization | [facility] | [...] Team Providers + +------+ + | Care Keno Writer/Runner Name | Role | Phone | + [...] + + | Closed | Specialty | Physical | Diagnoses | Katja | [facility] [place] | | | Services | Therapy / | Vertigo | MD Steff | [facility] | | | Required | Rehabilitatio | Procedures | [address] | Med Therapy | | | | n | PT | [place] | [address] | | | | | | [place] | [place] | | | | | | [address] | [place] | | | | | | Phone: | [address] | | | | | | [phone] | Phone: | | | | | | Fax: | [phone] | | | | | | [phone] | Fax: | | | | | | | [phone] | +--------+ + + + + + Reason for Visit + + + | Reason | Comments | + + + | Medication Reaction | dexamethasone | + + + Encounter Details +--------+---------+ + + + | Date | Type | Department | Care Team | Description | +--------+---------+ + + + | 08/31/ | Office | [facility] | Steff Hightower MD | 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[facility] | [address] | psychosis with | | | | [address] | [place] | complication (HCC) | | | | [place] | [address] | (Primary Dx); | | | | [address] | | Vertigo | | | | [phone] | | | +--------+---------+ + + + [...] + + + | Blood Pressure | 120/80 | 08/31/2019 11:06 AM | | | | | PST | | + + + + + | Pulse | 112 | 08/31/2019 11:06 AM | | | | | PST | | + + + + + | Temperature | 37.1 C (98.7 F) | 08/31/2019 11:06 AM | | | | | PST | | + + + + + | Respiratory Rate | - | - | | + + + + + | Oxygen Saturation | 99% | 08/31/2019 11:06 AM | | | | | PST | | + + + + + | Inhaled Oxygen | - | - | | | Concentration | | | | + + + + + | Weight | 95.6 kg (210 lb 12.2 | 08/31/2019 11:06 AM | | | | oz) | PST | | + + + + + | Height | - | - | | + + + + + | Body Mass Index | 29.4 | 08/23/2019 11:52 AM | | | | | PST | | + + + + + documented in this encounter Progress Notes Siddhatrh Kay, PT - 08/31/2019 11:15 AM PSTIncident To Therapy Treatment Note Date: 08/31/2019 Total Time: 15 minutes Subjective: Patient presents to clinic for follow up from an ED visit. She was seen in the [facility] ED on 08/26/2019 for breathing difficulty. She was given liquid oral solution Dexamethasone 10 ml. She reports since she took this medication she has been feeling, fatigued, dizzy nauseat ed, muscle weakness, and tingling of her face. She reports her symptoms have been the same s lara they started on Thursday. She reports her apeitate has been off and on. She reports symptoms get worse with head movements and that she has been cautious not to mo ve her head quickly. Reports the symptoms vary in type ranging from rotational vertigo, perc eption of falling, and light headedness. Reports varied duration of symptoms. Objective: Pertinent objective findings include: [place] Halpike=negative: dizziness reported but no true vertigo or nystagmus Roll test=negative bilateral: dizziness reported but no true vertigo or nystagmus Treatment today consisted of: Neuro-Muscular Re-Education -Instructed in habituation exercises to decrease sensitivity to motion: -Sit <--> supine -head turns Patient reports significant improvement in symptoms with progressive increase in speed of h ead movements Assessment Due to improvements in dizziness symptoms with progressive movements, at this time signs an d symptoms appear consistent with acute perceptual dizziness vs vestibular migraine vs cervi cogenic dizziness Patient Education / Self Long-Term Management: Educated pt about the clinical presentation seen today. Educated about the how and why of performing the HEP given below. Plan: Considerations for follow up: -continue at home with recommendations from visit Electronically signed by: Siddharth Kay PT, 08/31/2019 1:07 PM Patient Name: Mariella Obregon/: 1990/ Steff Engle MD - 1 10/31/2018 11:15 AM PST Subjective: Patient ID: Mariella Obregon is a 29 y.o. female. Chief Complaint Patient presents with Medication Reaction dexamethasone Here with her Bairon and her 27-mgvpp-xyy baby boy HPI Patient presents to clinic for follow up from an ED visit in [facility] in [place]. She was seen in the [facility] ED on 08/26/2019 for breathing difficulty due to "closing throat". She was given liquid oral solution Dexamethasone 10ml. She reports since she took this medi cation she has been feeling, fatigued, dizzy nauseated, muscle weakness, and tingling of her face. She reports her symptoms have been the same since they started on Saturday morning an d not improving, not able to walk or stand to lift up her babies and her had to take a week off work to take care of her... She reports her apeitate has been off and on. Mainly she complains of significant dizziness, spinning everything around her when she move s her head from side to side only, accompanied by nausea: Otherwise she has no nausea. Her legs are so weak that started to shake when she stands up. She reports that her limbs are weak and she feels "crawling sensation in the skin "all over . She reports that since the ER visit, she saw her ENT specialist Dr. Khoury in [place], and he examined her throat and told him that she has GERD and allergies with postnasal drip and explained to her that that is most likely causing a sensation of throat closing even though there is nothing there and there is no actual closing... Past Medical History: Diagnosis Date Acute non-recurrent [...] for this visit. Review of Systems Constitutional: Positive for malaise/fatigue. Negative for fever. HENT: Negative. Negative for congestion, sore throat and tinnitus. Eyes: Negative. Negative for blurred vision and pain. Respiratory: Negative. Negative for cough and shortness of breath. Cardiovascular: Negative. Negative for chest pain, palpitations and leg swelling. Gastrointestinal: Positive for diarrhea and nausea. Negative for abdominal pain, constipati on, heartburn and vomiting. Genitourinary: Negative. Negative for dysuria. Musculoskeletal: Negative. Negative for back pain, joint pain and myalgias. Skin: Negative. Negative for rash. Neurological: Positive for dizziness, tingling and headaches. Negative for weakness. Psychiatric/Behavioral: Negative. Negative for depression. The patient is not nervous/anxi ous and does not have insomnia. Objective: BP 120/80 | Pulse 112 | Temp 37.1 C (98.7 F) (Temporal) | Wt 95.6 kg (210 lb 12.2 oz ) | LMP 08/31/2019 (Approximate) | SpO2 99% | No | BMI 29.40 kg/m Physical Exam General Appearance: Alert, cooperative, no distress, appears stated age Head: Normocephalic, without obvious abnormality, atraumatic Eyes: PERRL, conjunctiva/corneas clear, EOM's intact; no nystagmus Nose: Nares normal, septum midline, mucosa normal, [...] educate in self care, instruct in therapeutic e xercises, and use of manual therapy as indicated. Use of modalities for pain and swelling re duction when appropriate. 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 I explained to her that we are going to add Zofran because she already is on Prilosec 20 mg for her GERD and she reports that is not helping her nausea. Also did treatment will be an antipsychotic like a Abilify 5 mg p.o. daily or twice daily b ut I would like to avoid it if possible if she responds well to physical therapy which she d id. Will follow-up if not better 2. Vertigo - * [facility] [place]- AMB Referral - ondansetron (ZOFRAN ODT) 4 mg disintegrating tablet; Take 1 tablet by mouth every 8 h ours as needed for Nausea. Dispense: 24 tablet; Refill: 0 The patient was satisfied with the care received and voiced understanding of the issues dis cussed and the plan. Return if symptoms worsen or fail to improve. Electronically signed by Steff Hightower MD Portions of this report were transcribed using [employer] voice recognition soft miranda. Although effort was made in correcting the errors; grammatical and sound alike errors may still be present. documented in this enc ounter Miscellaneous Notes Assessment & Plan Note - Steff Hightower MD - 08/31/2019 6:02 PM PSTAssociated Problem(s): Steroid-induced psychosis with complication (HCC)Will start with physical therapy for her d izziness, and I explained to her that this is not an allergic reaction to steroid or dexamet hasone but rather a side effect as in a mild steroid induced psychosis. I explained to her that we are going to add Zofran because she already is on Prilosec 20 mg for her GERD and she reports that is not helping her nausea. Also did treatment will be an antipsychotic like a Abilify 5 mg p.o. daily or twice daily b ut I would like to avoid it if possible if she responds well to physical therapy which she d id. Will follow-up if not better documented in this encounter Plan of Treatment + + +--------+ + + | Name | Type | Priori | Associated Diagnoses | Order Schedule | | | | ty | | | + + +--------+ + + | * [facility] [place] | Outpatient | Routin | Vertigo | Ordered: 08/31/2019 | | [facility] | Referral | e | | | | Physical Therapy- | | | | | | AMB Referral | | | | | + + +--------+ + + documented as of this encounter Visit Diagnoses + + | Diagnosis | + + | Steroid-induced psychosis with complication (HCC) - Primary | + + | Vertigo Dizziness and giddiness | + + documented in this encounter
--- OUTSIDE RECORDS SUMMARY | ~2020-05-09 | XMS | Encounter Summary ---
Demographics + + + | Address | [address] | | | [place] [address] | + + + | Home Phone | | + + + | Preferred Language | Unknown | + + + | Marital Status | | + + + | Rastafari Affiliation | Unknown | + + + | Race | Unknown | + + + | Ethnic Group | Unknown | + + + Author + + + | Author | [facility] | | | and [place] | + + + | Organization | [facility] | | | and [...] Team Providers + +------+ + | Care Renewals Representative Name | Role | Phone | + +------+ + | Steff Hightower MD | PCP | | + +------+ + Reason for Visit + +--------+ + | Reason | Onset | Comments | | | Date | | + +--------+ + | Medication | 11/11/ | | | Management | 2020 | | + +--------+ + | Eye Concern | 11/11/ | | | | 2020 | | + +--------+ + Encounter Details +--------+ + + + + | Date | Type | Department | Care Team | Description | +--------+ + + + + | 11/11/ | Telephone | [facility] | Steff Hightower MD | Medication | | 2020 | | [facility] | [address] | Management; Eye | | | | [address] | [place] | Concern | | | | [place] | [address] | | | | | [address] | | | | | | [phone] | | | +--------+ + + + [...] Miscellaneous Notes Telephone Encounter - Yudith Zamarripa Funeral Professional - 11/14/2019 7:32 AM PSTPatien t returned call to clinic, relayed provider message. Patient stated understanding and had no further questions. 20 7:34 AM PSTTelephone Encounter - Steff Hightower MD - 11/13/2019 12:23 PM PSTNot longer related to Prozac, it is out of the system at this time. It could be anxiety related or katharina tigo related. Thank you TTelephone Encounter - Lavonne Nunes RN - 11/11/2019 2:44 PM PSTPatient calls in and report she is having some symptoms with her eyes that she thinks might be due to her adverse reaction to Prozac. Patient is reporting a new astigmatism in her left eye and pretty significant light sensati vity to her right eye. Patient has seen her eye doctor and has been told there is nothing wr kemi on his end. Her eyes are healthy. Patient is wanting to know how long does it take for Prozac to fully get out of her system? She has been off of Prozac for almost 3 weeks. The max dose she got to was 20 mg. Does think the Prozac could have a roll in the symptoms she is having now or coul d something else be causing these? 20 3:20 PM PSTdocumented in this encounter Plan of Treatment Not on filedocumented as of this encounter Visit Diagnoses Not on filedocumented in this encounter"
--- OUTSIDE RECORDS SUMMARY | ~2020-05-09 | XMS | Encounter Summary ---
Demographics + + + | Address | [address] | | | [place] [address] | + + + | Home Phone | | + + + | Preferred Language | Unknown | + + + | Marital Status | | + + + | Yarsani Affiliation | Unknown | + + + | Race | Unknown | + + + | Ethnic Group | Unknown | + + + Author + + + | Author | [facility] | | | and [place] | + + + | Organization | [facility] | | [...] Team Providers + +------+ + | Care Baker Doughnut Name | Role | Phone | + +------+ + | Steff Hightower MD | PCP | | + +------+ + Reason for Visit + +--------+ + | Reason | Onset | Comments | | | Date | | + +--------+ + | Allergic Reaction | 08/30/ | | | | 2019 | | + +--------+ + Encounter Details +--------+ + + + + | Date | Type | Department | Care Team | Description | +--------+ + + + + | 08/30/ | Telephone | [facility] | Steff Hightower MD | Allergic Reaction | | 2019 | | MEDICINE [place] | [address] | | | | | [address] | [place] | | | | | [place], [place] | [address] | | | | | [address] | | | | | | [phone] | | | +--------+ + + + [...] this encounter Miscellaneous Notes Telephone Encounter - Steff Hightower MD - 08/31/2019 7:56 PM PSTShe is feeling significan tly better after the vestibular therapy and the physical therapy this morning and after we d iscussed in our visit we will continue to monitor. I just called her by phone.Electronicall y signed by Steff Hightower MD at 08/31/2019 7:56 PM PSTTelephone Encounter - Venus Cary RN - 08/31/2019 7:42 AM PSTPatient returned phone call this morning. She states t hat the dizziness has decreased, but she is still experiencing muscle weakness and shakiness . She reports that she feels like she cannot stay standing and feels weak. She reports that she has some facial swelling and numbness/tingling. It is not interfering with her vision or her airways. I read to her Dr. Hightower previous note and encouraged her to wait it out a few days. I encouraged her to drink fluids and to rest. Stated that if the swelling increases t o block her vision or airways to seek medical attention right away. Asked her if she would l susana an appointment to be seen today or if she wanted to give it a couple days. She has decid ed to wait a couple days and will let us know if she doesn't feel better. Electronically sig te by Nadege Cary, RN at 08/31/2019 7:49 AM PSTTelephone Encounter - Priyank Hightower MD - 08/30/2019 7:35 PM PSTThis is not an allergic reaction but a side effect it shoul d get a little better over time and if she is very nauseated she should take some Prilosec 2 0 mg OTC p.o. daily, thank you elephone Encounter - Lavonne Nunes RN - 08/30/2019 2:56 PM PSTPatient calls i n and states that she was seen in the emergency room Over the weekend in [place] for some breathing difficulties. Patient was given 1 dose of Dexamethasone in the emergency room hay night. Patient was discharged in stable condition that evening. She started having differe nt symptoms the next day. She is complaining of dizziness, nauseated, vomiting, limbs are ve ry light, and she feels weak. Patient ended up going [facility]. She was told she was having an allergic reaction to the Dexamethasone but was not given anything. Patient was just told to follow up with her pcp. Patient states she is slowly starting to feel a little bit better but not as quickly as she had hoped. The dizziness and weakness are the most troublesome. She is having issues drefein g her son to school due to the symptoms. Patient is going to try some Meclizine OTC for the dizziness and some benadryl at night for the potential allergic reaction. Patient is also just going to continue resting and taking things easy at home until it is out of her system. Can we order some Zofran to help with the nausea? . documented in this encounter Plan of Treatment Not on filedocumented as of this encounter Visit Diagnoses Not on filedocumented in this encounter"
--- OUTSIDE RECORDS SUMMARY | ~2020-05-09 | XMS | Encounter Summary ---
Demographics + + + | Address | [address] | | | [place] [address] | + + + | Home Phone [...] Organization | [facility] | | | and [place] [...] Team Providers + +------+ + | Care Sheet Metal Duct Installer Name | Role | Phone | [...] + + | Closed | Specialty | | Diagnoses | Shailesh, | Amisha, | | | Services | | Moderately | Adilia, | Edmar, | | | Required | | severe | [employer] [address] | Psychologist | | | | | depression | [address] | [address] | | | | | ([facility]) | [place], | [address] | | | | | Generalized | [place] [address] | [place], [place] | | | | | anxiety | Phone: | [phone] | | | | | disorder | [phone] | Phone: | | | | | | Fax: | [phone] | | | | | | [phone] | Fax: | | | | | | | [phone] | +--------+ + + + + + Reason for Visit + + + | Reason | Comments | + + + | Depression | | + + + Encounter Details +--------+---------+ + + + | Date | Type | Department | Care Team | Description | +--------+---------+ + + + | 10/17/ | Office | [facility] [place] [facility] | Adiila Cash, | Moderately severe | | 2020 | Visit | MEDICINE [place] | [employer] [address] | depression (HCC) | | | | [address] | [place] | (Primary Dx); | | | | [place] | [address] | Generalized anxiety | | | | [address] | | disorder | | | | [phone] | | | +--------+---------+ + + + [...] + + + | Blood Pressure | 128/76 | 10/17/2019 1:43 PM | | | | | PST | | + + + + + | Pulse | 104 | 10/17/2019 1:43 PM | | | | | PST | | + + + + + | Temperature | 36.9 C (98.5 F) | 10/17/2019 1:43 PM | | | | | PST | | + + + + + | Respiratory Rate | 20 | 10/17/2019 1:43 PM | | | | | PST | | + + + + + | Oxygen Saturation | 99% | 10/17/2019 1:43 PM | | | | | PST | | + + + + + | Inhaled Oxygen | - | - | | | Concentration | | | | + + + + + | Weight | 92.6 kg (204 lb 2.3 | 10/17/2019 1:43 PM | | | | oz) | PST | | + + + + + | Height | - | - | | + + + + + | Body Mass Index | 28.47 | 08/23/2019 11:52 AM | | | | | PST | | + + + + + documented in this encounter Patient Instructions Patient Instructions Adilia Cash ARNP - 10/17/2019 1:45 PM PSTAim for 60 minutes of br isk activity daily. Aim for 7-8 hours of sleep each night. Take 10 mg daily for 7 days, then stop. - Counseling advised for depression that is not under good control or if new emotional stre ssors develop - return if symptoms worsen or if you are having thoughts of self harm - Use your social support network to help you as needed - Work into your schedule activities that are stress relieving and improve your emotional w ell being. Phone number for Crisis HelpLine ([phone]) or go to [facility] ED for evaluation in the ozzy nt you become a harm to yourself or anyone else. Crisis text line also available at [phone] documented in this encounter Progress Notes Adilia Cash ARNP - 10/17/2019 1:45 PM PSTFormatting of this note might be different fr om the original. Mariella Obregon is a 29 y.o. female and patient of Steff Hightower MD Chief Complaint: Depression Here with her and 2 children HPI Patient reports multiple symptoms that worsened when she increased her fluoxetine from 10 m g to 20 mg daily. She was talking to her mother about her symptoms and her mother suggested that her symptoms all sound like side effects from her mood medicine. Reports dizziness, poor appetite, fogginess, nausea, diarrhea, haedaches, worsening mood, v isual changes, dry mouth, jitteryness. Then last week she started having some suicidal thou ghts and felt she needed to be seen promptly. She has no plan for self-harm. She does have access to a gun at home. She will give the castaneda to her for safe keeping. She is some days having large loose stool. No black bloody or tarry stool. Not happening more than once per day. Seeing a new therapist on Thursday. Not getting regular exercise. Sleep is good. Appetite is poor. He has been losing some weight unintentionally and she is concerned abou t this. PHQ9 Depression scale: Date of Last Screening Total Score 19 (10/17/19 1500) (Printable questionnaires in Slovak) Interpretation of Total Score: 1-4 = Minimal depression, 5-9 = Mild depression, 10-14 = Mod erate depression, 15-19 = Moderately severe depression, 20-27 = Severe depression 1. 1. Little interest or pleasure in doing things?: More than half the days 2. 2. Feeling down, depressed, or hopeless?: More than half the days 3. 3. Trouble falling or staying asleep, or sleeping too much?: More than half the days 4. 4. Feeling tired or having little energy?: More than half the days 5. 5. Poor appetite or overeating?: More than half the days 6. 6. Feeling bad about yourself - or that you are a failure or have let yourself or you r family down?: More than half the days 7. 7. Trouble concentrating on things, such as reading the newspaper or watching televis ion?: Nearly every day 8. 8. Moving or speaking so slowly that other people could have noticed. Or the opposite - being so fidgety or restless that you have been moving around a lot more than usual?: Huong valenzuela every day 9. 9. Thoughts that you would be better off , or of hurting yourself in some way?: ( !) Several days 10. General Anxiety Disorder (JOLENE-7): Total Score 16 (10/17/191499) (From JOLENE or Chronic Pain tab; printable questionnaires in Slovak ) Interpretation of Total Score: 8-9 = consistent with Generalized anxiety disorder, >15 = se edwin 1. Feeling nervous, anxious, or on edge?: Several days (10/17/191499) 2. Not being able to stop or control worrying?: Nearly every day (10/17/191499) 3. Worrying too much about different things?: Nearly every day (10/17/191499) 4. Trouble relaxing?: Nearly every day (10/17/191499) 5. Being so restless that it is hard to sit still?: More than half the days (10/17/191499) 6. Becoming easily annoyed or irritable?: Several Days (10/17/191499) 7. Feeling afraid as if something awful might happen?: Nearly every day (10/17/191499) Mood Disorders Questionnaire MDQ Q1 Score: 3 (From MDQ Documentation flowsheet) Positive screen: 7 or more positive in 1-13, as well as Yes to question 14, and Moderate or Serious in 15 1. Has there ever been a period of time when you were not your usual self and you felt so g ood or so hyper that other people thought you were not your normal self, or you were so hype r that you got into trouble?: No 2. Has there ever been a period of time when you were not your usual self and you were so i rritable that you shouted at people or started fights or arguments?: No 3. Has there ever been a period of time when you were not your usual self and you felt much more self-confident than usual?: No 4. Has there ever been a period of time when you were not your usual self and you got much less sleep than usual and found you didn't really miss it?: No 5. Has there ever been a period of time when you were not your usual self and you were much more talkative or spoke much faster than usual?: No 6. Has there ever been a period of time when you were not your usual self and thoughts race d through your head or you couldn't slow your mind down?: Yes 7. Has there ever been a period of time when you were not your usual self and you were so e asily distracted by things around you that you had trouble concentrating or staying on track ?: No 8. Has there ever been a period of time when you were not your usual self and you had much more energy than usual?: No 9. Has there ever been a period of time when you were not your usual self and you were much more active or did many more things than usual?: Yes 10. Has there ever been a period of time when you were not your usual self and you were muc h more social or outgoing than usual; for example, you telephoned friends in the middle of t he night?: No 11. Has there ever been a period of time when you were not your usual self and you were muc h more interested in sex than usual?: No 12. Has there ever been a period of time when you were not your usual self and you did thin gs that were unusual for you or that other people might have thought were excessive, foolish , or risky?: Yes 13. Has there ever been a period of time when you were not your usual self and spending mon ey got you or your family into trouble?: No MDQ Q2: If you checked YES to more than one of the above, have several of these ever happen ed during the same period of time?: No MDQ Q3: How much of a problem did any of these cause you?: Minor problem MDQ Q4: Have any of your blood relatives had manic-depressive illness or bipolar disorder?: Yes(cousin) MDQ Q5: Has a health point of care specialist ever told you that you have manic-depressive illness or bipolar disorder?: No PREVENTIVE CARE/PRIOR VISITS Any recommendations from Health Maintenance: Preventative Services TOPIC LAST DONE NEXT DUE Vaccine: Influenza 07/25/2019 Cervical Cancer Screening (Pap) 01/23/2018 Vaccine: Dtap/Tdap/Td 06/02/2018 06/02/2028 Vaccine: Pneumococcal 19-64 09/21/2019 Immunization History Administered Date(s) Administered INFLUENZA PF 18 Y OR >,TRIVALENT RECOMBINANT 07/25/2019 PNEUMOCOCCAL POLYSACCHARIDE 23-VALENT (PPSV23) 09/21/2019 TDAP, (ADOL/ADULT) 06/19/2014, 06/02/2018 Allergies Allergen Reactions Keflex [Cephalexin] Anaphylaxis Albuterol Other (See Comments) "shakey" Cat Hair Extract Swelling Medications: Patient Reported Taking Dosage cholecalciferol (CHOLECALCIFEROL) 50 mcg (2,000 units) tablet (Taking) Take 1 tablet by mo ut Daily. desogestrel-ethinyl estradiol (AZURETTE) 0.15-0.02/0.01 MG (01/03) per tablet (Taking) Take 1 tablet by mouth Daily. FLUoxetine (PROZAC) 20 mg capsule (Taking/Discontinued) Take 1 capsule by mouth Daily. Number of times this order has been changed since signin Order Audit [place] Past Medical History She has a past medical history of Abnormal uterine bleeding, Acute non-recurrent maxillary sinusitis, Asthma, Chronic rhinitis, Conjunctivitis, chronic, PCOS (polycystic ovarian syndr ome), and Seasonal allergic rhinitis due to other allergic trigger. Past Surgical History She has a past surgical history that includes ceasarean section, multiples; Refractive surg tiffany (Bilateral, 2010); Dental surgery; and Skin Excision. Family History: Her family history includes Allergies in her mother; Asthma in her maternal aunt and patern al aunt. Social History: Social History Socioeconomic History Marital [...] Review of Systems See HPI. Objective: Vitals: 10/17/19 1343 BP: 128/76 Pulse: 104 Resp: 20 Temp: 36.9 C (98.5 F) TempSrc: Temporal SpO2: 99% Weight: 92.6 kg (204 lb 2.3 oz) Physical Exam Constitutional: She is oriented to person, place, and time. She appears well-developed and well-nourished. No distress. Appropriately dressed and groomed HENT: Head: Normocephalic and atraumatic. Eyes: Conjunctivae are normal. Musculoskeletal: General: No edema. Neurological: She is alert and oriented to person, place, and time. Skin: Skin is warm and dry. Psychiatric: Anxious, tearful at times. Nursing note and vitals reviewed. Results for orders placed or performed in visit on 09/28/19 External Lab: Ferritin Result Value Ref Range Ferritin, External 50.71 13 - 150 External Lab: CBC Result Value Ref Range WBC, External 9.2 4.5 - 11 HGB, External 13.1 12 - 16 HCT, External 39.8 35 - 45 PLT, External 316 140 - 440 Neutrophils %, External 56.2 39 - 80 Lymphocytes %, External 36.4 24 - 44 Monocytes %, External 5.8 0 - 12 Eosinophils %, External 0.9 0 - 6 RBC, External 4.58 3.8 - 5.1 MCV, External 87 81 - 99 RDW, External 13.2 10.5 - 15 CBC with Differential Result Value Ref Range MCH 29.0 27.0 - 33.0 pg MCHC 33.0 30.0 - 36.0 g/dL % Basophils 0.7 0.0 - 2.0 % Assessment: 1. Moderately severe depression (HCC) Social Work, External - AMB Referral FLUoxetine (PROZAC) 10 mg capsule 2. Generalized anxiety disorder Social Work, External - AMB Referral FLUoxetine (PROZAC) 10 mg capsule Plans: 1. Moderately severe depression (HCC) 2. Generalized anxiety disorder Patient contracts with wi for safety. Provided number for crisis. PHQ 9 and jolene 7 reflect worsening mood despite being on fluoxetine. Per patient report sym ptoms have been worsening since she initially started the Prozac, then worsened further when she increased the dose in mid September. Patient would like to taper off fluoxetine and try counseling alone. Advised to take 10 mg Prozac once daily for 7 days, then stop. Stop taking the 20 mg tabs. Aim for 60 minutes of brisk activity daily. Aim for 7-8 hours of sleep each night. - Anxiety and depression scores reviewed with patient - Counseling advised for depression that is not under good control or if new emotional stre ssors develop - return if symptoms worsen or if you are having thoughts of self harm - Use your social support network to help you as needed - Work into your schedule activities that are stress relieving and improve your emotional w ell being. - Social Work, External - AMB Referral - FLUoxetine (PROZAC) 10 mg capsule; Take 1 capsule by mouth Daily. Dispense: 7 capsule; R efill: 0 Medication risks and benefits were reviewed in detail today with the patient who expresses understanding. Pt will call or return with problems or side effects. Follow-up: Return in about 5 weeks (around 11/21/2019), or if symptoms worsen or fail to imp rove, for mood. Portions of this report were transcribed using voice recognition software. Every effort wa s made to ensure accuracy; however, inadvertent computerized manufacturing project engineer errors may be pre sent. documented in th is encounter Plan of Treatment + + +--------+ + + | Name | Type | Priori | Associated Diagnoses | Order Schedule | | | | ty | | | + + +--------+ + + | Social Work, | Outpatient | Routin | Moderately severe | Ordered: 10/17/2019 | | External - AMB | Referral | e | depression (HCC) | | | Referral | | | Generalized anxiety | | | | | | disorder | | + + +--------+ + + documented as of this encounter Visit Diagnoses + + | Diagnosis | + + | Moderately severe depression (HCC) - Primary | + + | Generalized anxiety disorder | + + documented in this encounter
--- OUTSIDE RECORDS SUMMARY | ~2020-05-09 | XMS | Encounter Summary ---
Demographics + + + | Address | [address] | | | [place] [address] | + + + | Home Phone | | + + + | Preferred Language | Unknown | + + + | Marital Status | | + + + | Zoroastrianism Affiliation | Unknown | + + + | Race | Unknown | + + + | Ethnic Group | Unknown | + + + Author + + + | Author | [facility] | | | and [place] | + + + | Organization | [facility] | | | and [...] Team Providers + +------+ + | Care Line Assigner Name | Role | Phone | + +------+ + | Steff Hightower MD | PCP | | + +------+ + Reason for Visit + +--------+ + | Reason | Onset | Comments | | | Date | | + +--------+ + | Records Request | 09/22/ | | | | 2019 | | + +--------+ + Encounter Details +--------+ + + + + | Date | Type | Department | Care Team | Description | +--------+ + + + + | 09/22/ | Telephone | [facility] | Steff Hightower MD | Records Request | | 2019 | | MEDICINE [place] | [address] | | | | | [address] | [place] | | | | | [place] | [address] | | | | | [address] | | | | | | [phone] | | | +--------+ + + + [...] Encounter - Yudith Zamarripa Medical Assistant - 09/22/2019 4:47 PM PSTRecord s requested today from Dr. Nj Benites in [place], [place]. [email or web address] signed by Rehana Pool Assistant at 09/22/20 19 4:47 PM PSTdocumented in this encounter Plan of Treatment Not on filedocumented as of this encounter Visit Diagnoses Not on filedocumented in this encounter"
--- OUTSIDE RECORDS SUMMARY | ~2020-05-09 | XMS | Encounter Summary ---
Demographics + + + | Address | [address] | | | [place] [address] | + + + | Home Phone | | + + + | Preferred Language | Unknown | + + + | Marital Status | | + + + | Temple Affiliation | Unknown | + + + | Race | Unknown | + + + | Ethnic Group | Unknown | + + + Author + + + | Author | [facility] | | | and [place] | + + + | Organization | [facility] | | | and [...] Team Providers + +------+ + | Care Merchandise Adjustment Clerk Name | Role | Phone | [...] + + | Closed | Specialty | Surgery | Diagnoses | Katja, | Aguilar Maxwell | | | Services | | | MD Steff | Davian | | | Required | | Gastroesopha | [address] | [address] | | | | | geal reflux | [address] | [address] | | | | | disease with | [place] | [place], [place] | | | | | esophagitis | [address] | [address] | | | | | | Phone: | Phone: | | | | | | [phone] | [phone] | | | | | | Fax: | Fax: | | | | | | [phone] | [phone] | +--------+ + + + + + Reason for Visit + + + | Reason | Comments | + + + | Dizziness | | + + + | Depression | | + + + | Gastroesophageal | | | Reflux | | + + + Encounter Details +--------+---------+ + + + | Date | Type | Department | Care Team | Description | +--------+---------+ + + + | 09/21/ | Office | [facility] | Steff Hightower MD | Generalized anxiety | | 2019 | Visit | [facility] | [address] | disorder (Primary | | | | [address] | [place] | Dx); Steroid-induced | | | | [place], [place] | [address] | psychosis with | | | | [address] | | complication (HCC); | | | | [phone] | | Gastroesophageal | | | | | | reflux disease with | | | | | | esophagitis; Need | | | | | | for pneumococcal | | | | | | vaccination; Vertigo | +--------+---------+ + + + Social History [...] + + + | Blood Pressure | 110/60 | 09/21/2019 7:14 AM | | | | | PST | | + + + + + | Pulse | 94 | 09/21/2019 7:14 AM | | | | | PST | | + + + + + | Temperature | 36.8 C (98.2 F) | 09/21/2019 7:14 AM | | | | | PST | | + + + + + | Respiratory Rate | 20 | 09/21/2019 7:14 AM | | | | | PST | | + + + + + | Oxygen Saturation | 97% | 09/21/2019 7:14 AM | | | | | PST | | + + + + + | Inhaled Oxygen | - | - | | | Concentration | | | | + + + + + | Weight | 96.7 kg (213 lb 3 | 09/21/2019 7:14 AM | | | | oz) | PST | | + + + + + | Height | - | - | | + + + + + | Body Mass Index | 29.73 | 08/23/2019 11:52 AM | | | | | PST | | + + + + + documented in this encounter Progress Notes Bonnie Barnes, PT - 09/21/2019 7:00 AM PSTIncident To Physical Therapy Treatment Not e Date: 09/21/2019 Timed Treatment Codes: 15 minutes Subjective: Mariella presents to primary care provider visit today with complaints of 1 episode of dizzi ness when she was in an underground tour in [facility] recently - occurred When she looked quickly down and to the L. Was seen and put on Meclizine - to be used for 3 more days. Den ies true vertigo symptoms. Had been doing the exercises given to her by previous PT Siddharth. The pt states that she is also getting eyes checked today for glasses because she can tell her vision out of her L eye is impaired/blurry. Feels this is a factor in her dizziness. Pt requesting PT perform [place] Halpike maneuver again as she feels like it was so helpful pre viously. ( Of note, no record of BPPV treatment ( Ann) being performed for this pt as no nystagmus seen therefore not indicated ) Objective: Pertinent objective PT findings: Observation/Palpation: Neg Allen Halpike to L R Allen Hallpike or roll test not performed as pt not describing true vertigo symptoms. Treatment today consisted of: Therapeutic Activity: (15 mins ) Patient instructed in the following activities for home: -Discussion and practice of HEP including head turns, pickup up objects on the ground repea tedly. -Educated pt about importance of continuing doing habituation exercises given to her and th at this is custodial more helpful than medication. Pt understands that Meclizine is to be u sed for short term use as prescribed. Assessment: Pt reported pleased that she had no dizziness with L [place] Halpike - content hay t this problem is now resolved. Believes that the rest of her symptoms are related to her p oor vision - concur with this concept. Plan: Considerations for follow up: -Continue at home with recommendations from visit Electronically signed by: Bonnie Barnes PT, 09/21/2019 8:38 AM Patient Name: Mariella Obregon/: 1990/ Steff Engle M D - 09/21/2019 7:00 AM PST Subjective: Patient ID: Mariella Obregon is a 29 y.o. female. Chief Complaint Patient presents with Dizziness Depression Gastroesophageal Reflux She is here today with her Bairon on her 13 months old baby Jet RENDON Patient presents to clinic to inform us that she was seen in urgent care in [facility], [place] a nd was diagnosed with vertigo. She was started on Meclizine 25mg and since then, she has not had feelings of "low blood sugar". She is wanting to increase her fluoxetine from 10mg to 20mg. She has increased it herself a bout 3 days ago as indicated on the bottle. She is needing refills for 20 mg fluoxetine sent to her pharmacy. Referral to gastroenterology for possible upper endoscopy due to acid reflux. She would li ke to stay in [place] for the endoscopy and not in [place], she is requesting her ENT Dr. Khoury to do it but I called his office and they will do EGDs. PHQ9 SCORE Office Visit from 09/21/2019 in [facility] Office Visit from 09/2019 in [facility] Office Visit from 08/02/2019 in [facility] Office Visit from 06/23/2019 in [facility] PHQ-9 Total Score (Patient Health Questionnaire) 6 1 6 4 ANXIETY/STRESS SCORE Office Visit from 09/21/2019 in [facility] Office Visit from 09/2019 in [facility] Office Visit from 08/02/2019 in [facility] KAY-7 Score (General Anxiety Disorder) 0 0 14 Past Medical History: Diagnosis Date [...] tab let by mouth Daily. FLUoxetine (PROZAC) 20 mg capsule Take 1 capsule by mouth Daily. 30 capsule 11 fluticasone (FLONASE) 50 mcg/nasal spray 1 spray by Nasal route Daily. hydrOXYzine hydrochloride (ATARAX) 25 mg tablet Take 1 tablet by mouth every 6 hours as needed for Anxiety. 60 tablet 0 meclizine (ANTIVERT) 25 mg tablet Take 25 mg by mouth 2 times daily. 0 omeprazole (PRILOSEC) 20 mg capsule Take 20 [...] vomiting. Genitourinary: Negative. Negative for dysuria. Musculoskeletal: Negative for back pain, joint pain and myalgias. Skin: Negative. Negative for rash. Neurological: Positive for dizziness. Negative for tingling, weakness and headaches. Psychiatric/Behavioral: Negative. Negative for depression. The patient is not nervous/anxi ous and does not have insomnia. Objective: BP 110/60 | Pulse 94 | Temp 36.8 C (98.2 F) (Temporal) | Resp 20 | Wt 96.7 kg (213 lb 3 oz) | LMP 08/31/2019 (Approximate) | SpO2 97% | BMI 29.73 kg/m Physical Exam General Appearance: Alert, cooperative, [...] swelling re duction when appropriate. Assessment/Plan: 1. Generalized anxiety disorder (Primary) Overview: Started fluoxetine 10 mg mid July 2019 Assessment & Plan: Well controlled. Refill for her fluoxetine 20mg sent to her pharmacy. Orders: - FLUoxetine (PROZAC) 20 mg capsule; Take 1 capsule by mouth Daily. Dispense: 30 capsu le; Refill: 11 2. Steroid-induced psychosis with complication (HCC) Overview: After a single dose of oral dexamethasone 10 mg at the [facility] ER in [place] on 10/26/2018, given due to complaining of "throat closing " Assessment & Plan: This has resolved as of 09/21/2019. 3. Gastroesophageal reflux disease with esophagitis Assessment & Plan: Patient requesting EGD, referred to Dr. Maxwell in [place], he is a general surgeon but palafox s the studies Orders: - General Surgery, External - AMB Referral 4. Need for pneumococcal vaccination - Pneumococcal polysaccharide vaccine (PPSV23) greater than or equal to 2yo subcutaneou s/IM [24826] 5. Vertigo Overview: Had vestibular therapy twice and reports it worked wonderfully Assessment & Plan: Patient is requesting vestibular therapy again today Continue meclizine as needed The patient was satisfied with the care received and voiced understanding of the issues dis cussed and the plan. Will request records from ophthalmology Dr. Aide grover in [place] and gynecology her rec ent Pap smear. No follow-ups on file. Electronically signed by Steff Hightower MD Portions of this report were transcribed using [employer] voice recognition soft miranda. Although effort was made in correcting the errors; grammatical and sound alike errors may still be present. documented in this enc ounter Miscellaneous Notes Assessment & Plan Note - Steff Hightower MD - 09/21/2019 9:38 AM PSTAssociated Problem(s): VertigoPatient is requesting vestibular therapy again today Continue meclizine as needed ssessment & Plan Note - Steff Hightower MD - 09/21/2019 9:37 AM PSTAssociated Proble m(s): Gastroesophageal reflux disease with esophagitisPatient requesting EGD, referred to Dr Karla Maxwell in [place], he is a general surgeon but does the studies ssessment & Plan Note - Yudith Zamarripa [facility] rich Staff Midwife - 09/21/2019 7:27 AM PSTAssociated Problem(s): Generalized anxiety disorderWe ll controlled. Refill for her fluoxetine 20mg sent to her pharmacy. ssessment & Plan Note - Yudith Jernigan Medical Assistant - 09/21/2019 7:22 AM PSTAssociated Problem(s): Steroid-i nduced psychosis with complication (HCC)This has resolved as of 09/21/2019.Electronically si gned by Rehana Pool Assistant at 09/21/2019 7:22 AM PSTdocumented in this en counter Plan of Treatment + + +--------+ + + | Name | Type | Priori | Associated Diagnoses | Order Schedule | | | | ty | | | + + +--------+ + + | General Surgery, | Outpatient | Routin | Gastroesophageal | Ordered: 09/21/2019 | | External - AMB | Referral | e | reflux disease with | | | Referral | | | esophagitis | | + + +--------+ + + documented as of this encounter Visit Diagnoses + + | Diagnosis | + + | Generalized anxiety disorder - Primary | + + | Steroid-induced psychosis with complication (HCC) | + + | Gastroesophageal reflux disease with esophagitis | + + | Need for pneumococcal vaccination Need for prophylactic vaccination against | | streptococcus pneumoniae (pneumococcus) | + + | Vertigo Dizziness and giddiness | + + documented in this encounter
--- OUTSIDE RECORDS SUMMARY | ~2020-05-09 | XMS | Encounter Summary ---
Demographics + + + | Address | [address] | | | [place] [address] | + + + | Home Phone | | + + + | Preferred Language | Unknown | + + + | Marital Status | | + + + | Anglican Affiliation | Unknown | + + + | Race | Unknown | + + + | Ethnic Group | Unknown | + + + Author + + + | Author | [facility] | | | and [place] | + + + | Organization | [facility] | | | and [...] Providers + +------+ + | Care Sales Representative Trainee Name | Role | Phone | + +------+ + | Steff Hightower MD | PCP | | + +------+ + Reason for Visit + +--------+ + | Reason | Onset | Comments | | | Date | | + +--------+ + | Medication Reaction | 10/21/ | | | | 2020 | | + +--------+ + Encounter Details +--------+ + + + + | Date | Type | Department | Care Team | Description | +--------+ + + + + | 10/21/ | Telephone | [facility] | Steff Hightower MD | Medication Reaction | | 2020 | | [facility] | [address] | | | | | [address] | [place] | | | | | [place], [place] | [address] | | | | | [address] | | | | | | [phone] | | | +--------+ + + + [...] this encounter Miscellaneous Notes Telephone Encounter - Halima Ely Cert MA - 10/21/2019 3:26 PM PSTSpoke with patient yudi burns given. Patient verbalized understanding. elephone Encounter - Adilia Cash ARNP - 10/21/2019 2:57 PM PSTIt is okay for her to stop. I think symptoms may be due to poorly controlled anxiety dep ression. Encourage counseling as she declined trying different medication May need to see pcp prior to November appointment. Phone number for Crisis HelpLine ([phone]) or go to [facility] ED for evaluation in the ozzy nt you become a harm to yourself or anyone else. Crisis text line also available at [id number] signed by MERCEDEZ Ramos at 3:03 PM PSTTelephone Encounter - Isabelle Olvera RN - 10/21/2019 1:47 PM PSTPati ent currently on 10 mg Prozac per Adilia Cash. Patient is still having problems with 'brai n fog' dizziness and shakiness. Patient has been getting cold symptoms, dry mouth, anxiety and depression is much worse and she is unable to concentrate. She would like to get completely off. Still has until 10/24/2019 before she is schedule to b e completed. Please advise on next steps. 1:5 0 PM PSTdocumented in this encounter Plan of Treatment Not on filedocumented as of this encounter Visit Diagnoses Not on filedocumented in this encounter"
[~2020-05-09 17:59] MED LIST changes: +EXCEDRIN MIGRA1 EAC2 PO; +SUDAFED 12 HOU120 MG PO
== END 2020-05-09 20:31 | disposition home or self-care (01) ==
LOC: ED 17:59
PROC: 0HQGXZZ Repair Left Hand Skin, External Approach (ICD-10-PCS; principal; 2020-05-09)
DX: S61.412A Laceration without foreign body of left hand, initial encounter (principal); F32.9 Major depressive disorder, single episode, unspecified; F41.9 Anxiety disorder, unspecified; Z23 Encounter for immunization; Z88.1 Allergy status to other antibiotic agents; Z88.8 Allergy status to other drugs, medicaments and biological substances; Z79.899 Other long term (current) drug therapy; W26.0XXA Contact with knife, initial encounter
CPT/HCPCS: 12001; 90471; 90715; 99282-25

== ENCOUNTER 2021-04-28 08:45 | Emergency (ER) | payer OTHER ==
[~2021-04-28] VITALS: Ht 175.3 cm; Wt 112.5 kg
[~2021-04-28 08:45] MED LIST changes: +ALBUTEROL1.25 MG/3 INH; +MOVE FREE ULTR1 EAC2 PO; +PRESERVISION L1 EACH PO; +ZINC30 MG PO
[2021-04-28] MEDS ORDERED: OMEPRAZOLE20 MG PO (09:00)
== END 2021-04-28 10:06 | disposition home or self-care (01) ==
LOC: ED 08:45
DX: R30.0 Dysuria (principal); Z88.1 Allergy status to other antibiotic agents; Z88.8 Allergy status to other drugs, medicaments and biological substances; Z79.899 Other long term (current) drug therapy
CPT/HCPCS: 81001; 84703; 99283